=== PATIENT | male | born 1950 | race African-American/Black ===

== ENCOUNTER → 2016-04-14 | Outpatient (CLI) | payer MEDICARE | LOC: OD 10:22 | PROVIDERS: ATTEND Family Medicine | DX: M79.669 Pain in unspecified lower leg (principal); M25.461 Effusion, right knee; M77.51 Other enthesopathy of right foot and ankle ==

== ENCOUNTER 2016-04-15 14:50 | Emergency (ER) | payer MEDICARE ==
--- NOTE | 2016-04-15 15:17 | ER Document Report ---
ED Medical Screen (RME) - General Stated Complaint: KNEE AND FOOT PAIN Notes: right leg and foot swelling for 5 days, no trauma or injury denies h/o heart failure, edema ambulatory with a cane I have greeted and performed a rapid initial assessment of this patient. A comprehensive ED assessment and evaluation of the patient, analysis of test results and completion of the medical decision making process will be conducted by additional ED providers. TRAVEL OUTSIDE OF THE [place] IN LAST 30 DAYS: No - Related Data Allergies/Adverse Reactions: No Known Allergies Allergy (Verified 04/15/16 15:13) Past Medical History - Past Medical History Cardiac Medical History: Reports: Hx Coronary Artery Disease, Hx Hypertension Denies: Hx Heart Attack Pulmonary Medical History: Denies: Hx Asthma, Hx Bronchitis, Hx COPD, Hx Pneumonia Neurological Medical History: Reports: Hx Cerebrovascular Accident - 3 years ago - generally weak. Denies: Hx Seizures Endocrine Medical History: Reports: Hx Diabetes Mellitus Type 2 Malignancy Medical History: Reports Hx Colorectal Cancer, Reports Hx Prostate Cancer Musculoskeltal Medical History: Denies Hx Arthritis Past Surgical History: Reports: Hx Cardiac Surgery - cabg, Hx Coronary Artery Bypass Graft - Immunizations Hx Diphtheria, Pertussis, Tetanus Vaccination: No - unknown Physical Exam - Vital signs Vitals: Temp Pulse Resp BP Pulse Ox 98.4 F 70 16 161/90 H 100 04/15/16 15:12 04/15/16 15:12 04/15/16 15:12 04/15/16 15:12 04/15/16 15:12 Course - Vital Signs Vital signs: Temp Pulse Resp BP Pulse Ox 98.4 F 70 16 161/90 H 100 04/15/16 15:12 04/15/16 15:12 04/15/16 15:12 04/15/16 15:12 04/15/16 15:12
[2016-04-15 15:38] LABS: ABSOLUTE BASOPHILS # (AUTO) 0.1 10^3/uL (0.0-0.2); ABSOLUTE EOSINOPHILS # (AUTO) 0.1 10^3/uL (0.0-0.6); ABSOLUTE LYMPHOCYTES (AUTO) 0.9 10^3/uL (0.5-4.7); ABSOLUTE MONOCYTES (AUTO) 0.9 10^3/uL (0.1-1.4); ABSOLUTE NEUT (AUTO) 5.8 10^3/uL (1.7-8.2); BASOPHILS % (AUTO) 1.2 % (0-2); EOSINOPHILS % (AUTO) 1.1 % (0-6); HEMATOCRIT 30.1 % (37.9-51.0); HGB HCT DIFFERENCE -0.1; LYMPHOCYTES % (AUTO) 11.7 % (13-45); MEAN CORPUSCULAR HGB CONC 33.1 g/dL (32.0-36.0); MEAN CORPUSCULAR VOLUME 88 fl (80-97); MONOCYTES % (AUTO) 11.9 % (3-13); RED BLOOD COUNT 3.44 10^6/uL (4.35-5.55); RED CELL DISTRIBUTION WIDTH 14.7 % (11.5-14.0); SEGMENTED NEUTROPHILS % (AUTO) 74.1 % (42-78); WHITE BLOOD COUNT 7.9 10^3/uL (4.0-10.5)
[2016-04-15 15:53] LABS: ALANINE AMINOTRANSFERASE 30 U/L (21-72); ALBUMIN 4.1 g/dL (3.5-5.0); ALKALINE PHOSPHATASE 81 U/L (38-126); ANION GAP 13 (5-19); ASPARTATE AMINO TRANSFERASE 19 U/L (17-59); BILIRUBIN,TOTAL 0.8 mg/dL (0.2-1.3); BLOOD UREA NITROGEN 37 mg/dL (7-20); CALCIUM 9.8 mg/dL (8.4-10.2); CARBON DIOXIDE 22 mmol/L (22-30); CHLORIDE 101 mmol/L (98-107); CREATININE RESULT 1.86 mg/dL (0.52-1.25); GLUCOSE 180 mg/dL (75-110); SODIUM 136.3 mmol/L (137-145); TOTAL PROTEIN 7.8 g/dL (6.3-8.2)
[2016-04-15] MEDS ORDERED: LIDOCAINE 1%/EPINEPHRINE INJ 20 ML VIAL INJ ONE (17:23)
[2016-04-15 17:34] LABS: APPEARANCE,URINE SLIGHTLY-CLOUDY; BILIRUBIN,URINE NEGATIVE (NEGATIVE); GLUCOSE, URINE NEGATIVE (NEGATIVE); KETONES,URINE NEGATIVE (NEGATIVE); LEUKOCYTE ESTERASE,URINE NEGATIVE (NEGATIVE); NITRITE,URINE NEGATIVE (NEGATIVE); PROTEIN,URINE 30 mg/dL (NEGATIVE); URINE SPECIFIC GRAVITY 1.021; UROBILINOGEN,URINE NEGATIVE mg/dL (<2.0)
[2016-04-15] MEDS ORDERED: OXYCODONE-ACETAMINOPHEN 5-325 MG TABLET PO ONE (17:51)
[2016-04-15] MEDS ORDERED: PROMETHAZINE HCL 25 MG TABLET PO ONE (17:51)
[2016-04-15 18:26] LABS: OTHER CRYSTALS NONE OBSERVED
[2016-04-15 18:56] LABS: FLUID APPEARANCE SLIGHTLY HAZY; FLUID TYPE SYNOVIAL
[2016-04-15 18:57] LABS: FLUID RBC AVERAGE 7.5; FLUID RBC DILUENT USED NONE USED; FLUID RBC DILUTION FACTOR 1; FLUID RBC SIDE 1 7; FLUID RBC SIDE 2 8; TOTAL RBC SQUARES COUNTED FLD 225
--- NOTE | 2016-04-15 19:04 | ER Document Report ---
ED Extremity Problem, Lower - General Chief Complaint: Knee Pain Stated Complaint: KNEE AND FOOT PAIN Notes: Patient has swelling of his right knee and also his right foot since Tuesday. The swollen joints are very painful and it's difficult for him to walk, even using a cane. He recalls no injury. He's never had anyone tell him he has gout or any other arthritic conditions. Has not noted a fever. Family says he had a similar problem with the left knee and leg about a month ago. He's not had any vomiting or diarrhea. No cough or cold or chest congestion. TRAVEL OUTSIDE OF THE [place] IN LAST 30 DAYS: No - Related Data Allergies/Adverse Reactions: No Known Allergies Allergy (Verified 04/15/16 15:13) Past Medical History - Social History Smoking Status: Never Smoker Chew tobacco use (# tins/day): No Frequency of alcohol use: None Drug Abuse: None Family History: Reviewed & Not Pertinent Patient has suicidal ideation: No Patient has homicidal ideation: No - Past Medical History Cardiac Medical History: Reports: Hx Coronary Artery Disease - Stents, Hx Hypertension Denies: Hx Heart Attack Neurological Medical History: Reports: Hx Cerebrovascular Accident - 3 years ago - generally weak Endocrine Medical History: Reports: Hx Diabetes Mellitus Type 2 - Not on insulin. Malignancy Medical History: Reports Hx Colorectal Cancer, Reports Hx Prostate Cancer Musculoskeltal Medical History: Denies Hx Gout Past Surgical History: Reports: Hx Cardiac Surgery - cabg, Hx Coronary Artery Bypass Graft, Hx Genitourinary Surgery - Prostate surgery, Other - Colon cancer - Immunizations Hx Diphtheria, Pertussis, Tetanus Vaccination: No - unknown Hx Pneumococcal Vaccination: 03/07/14 Review of Systems - Review of Systems Notes: REVIEW OF SYSTEMS: CONSTITUTIONAL : Denies fever. EENT: Denies eye, ear, nose or mouth or throat pain or other symptoms. CARDIOVASCULAR: Denies chest pain. RESPIRATORY: Denies cough, chest congestion, or shortness of breath. GASTROINTESTINAL: Denies abdominal pain or nausea, vomiting, or diarrhea. GENITOURINARY: Denies difficulty or painful urinating, urinary frequency, blood in urine. MUSCULOSKELETAL: Denies back or neck pain. See history of present illness. SKIN: Denies rash or skin lesions. NEUROLOGICAL: Denies LOC or altered mental status. Denies headache. Denies sensory loss or motor deficits. PSYCHIATRIC: Denies anxiety or stress. Denies depression. ALL OTHER SYSTEMS REVIEWED AND NEGATIVE. Physical Exam - Vital signs Vitals: Temp Pulse Resp BP Pulse Ox 98.4 F 70 16 161/90 H 100 04/15/16 15:12 04/15/16 15:12 04/15/16 15:12 04/15/16 15:12 04/15/16 15:12 - Notes Notes: PHYSICAL EXAMINATION: GENERAL: Well-appearing, in no acute distress. Temp 98.4. HEAD: Atraumatic, normocephalic. NECK: Normal range of motion, supple. LUNGS: Breath sounds clear and equal bilaterally. HEART: Regular rate and rhythm without murmurs. ABDOMEN: Soft, nontender. No guarding or rebound. BACK: No tenderness throughout entire back. EXTREMITIES: Right knee is swollen with some small effusion palpable. It's warm to the touch. Right foot and ankle are also warm to the touch and painful to do so. Good nail bed filling at the toes of the right foot. Toes are warm to touch. NEUROLOGICAL: Normal speech, difficult, limping gait. Normal sensory, motor, and reflex exams. Awake, alert, and oriented x3. Cranial nerves normal. PSYCH: Normal mood, normal affect. SKIN: Warm, dry, no rashes. Course - Re-evaluation Re-evalutation: 04/15/16 21:27 - Vital Signs Vital signs: Temp Pulse Resp BP Pulse Ox 98.2 F 72 18 158/88 H 98 04/15/16 20:30 04/15/16 20:30 04/15/16 20:30 04/15/16 20:30 04/15/16 20:30 04/15/16 20:30 Synovial fluid from the right knee report from the lab looks like gout. He has mono urate crystals but no evidence of calcium pyruvate crystals of pseudogout. Preliminary Gram stain does not show any bacteria. Discussed with Dr. Vivar. He has just recently seen the patient has a reschedule visit Tuesday. He said to start the patient on colchicine 0.6 mg twice a day for 5 days, allopurinol 100 mg a day, and pain medicines and he will see the patient Tuesday. 04/15/16 21:27 - Laboratory Result Diagrams: 04/15/16 15:25 04/15/16 15:25 Laboratory results interpreted by me: 04/15/16 04/15/16 04/15/16 15:25 15:25 15:25 RBC 3.44 L Hgb 10.0 L Hct 30.1 L RDW 14.7 H Lymphocytes % 11.7 L ESR Sodium 136.3 L BUN 37 H Creatinine 1.86 H Est GFR ( Amer) 44 L Est GFR (Non-Af Amer) 37 L Glucose 180 H C-Reactive Protein NT-Pro-B Natriuret Pep 1600 H Urine Protein 04/15/16 04/15/16 04/15/16 15:25 15:25 17:10 RBC Hgb Hct RDW Lymphocytes % ESR 111 H Sodium BUN Creatinine Est GFR ( Amer) Est GFR (Non-Af Amer) Glucose C-Reactive Protein 86.0 H NT-Pro-B Natriuret Pep Urine Protein 30 H 04/15/16 20:30 Procedures - Joint Aspiration Right Knee Consent obtained: Yes Joint aspiration pre-procedure: Betadine prep applied, Other - Plus Isopril alcohol Anesthetic type: 1% Lidocaine w/epi mL's of anesthetic: 1 Needle size: 18 Amount/type of drainage: 10 Number of attempts: 1 Complications: No Discharge - Discharge Clinical Impression: Effusion, right knee Gout Qualifiers: Gout site: knee Gout etiology: due to renal impairment Laterality: right Chronicity: acute Qualified Code(s): 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 This fluid build up can occur from irritation of the synovial membrane lining the knee joint or from a more serious injury to the knee. Irritation of the membrane can occur from excessive, repetitive knee activitiy, like kneeling or squatting for extended periods or even just excessive walking, jogging, or skiing. Effusions also can occur with infections in the joint and with some arthritic conditions, especially gout. Fluid collections in these situations are usually yellow in color and either clear or cloudy in appearance. Significant injury to the knee can result in fluid collection which is partly or entirely blood and this condition is known as a hemarthrosis of the knee joint. If the fluid collection is not too large and/or painful, it can be managed conservatively with rest, ice packs, and anti-inflammatory and pain medications as needed. If the fluid collection is large and very painful, the knee joint can be drained (aspirated) by a relatively minor procedure of inserting a needle in the joint and removing some or all of the fluid present. If your knee was aspirated, you should rest it as much as possible for a few days, keep a pressure dressing around the knee and apply ice packs for at least 48 - 72 hours. If there are signs of developing infection such as heat and redness of the knee, fever, etc. you should return immediately for a recheck. Gout You have been diagnosed as having gout. Gout is a problem caused by an excess of uric acid, a natural chemical found in the body. The cause of this disease is unknown. Gout arthritis occurs when crystals of uric acid form in the joints. The big toe is the most common joint involved, but any joint can become affected. Persons with gout may also form uric acid kidney stones, resulting in flank pain and blood in the urine. Nodules of uric acid may form under the skin. The first step of treatment is to decrease the inflammation in the joint with antiinflammatory medication. Medication to lower the uric acid level in the blood may then be prescribed. This medication should be taken regularly, as any sudden change in dosage may provoke an attack of gout. Some foods, such as red meat, can provoke an attack in some gout sufferers. Call the doctor if new symptoms arise, or if you do not improve. Allopurinol Allopurinol (Zyloprim) is used to prevent gout and uric acid kidney stones. Allopurinol lowers uric acid in your body. It's most effective if taken daily. It's not useful to treat an attack of gout once it begins! There are usually no side effects from allopurinol. If you have any kidney disease, be sure your doctor knows about it before starting allopurinol ( you may need a lower dose). Stop the allopurinol and call your doctor if you develop severe itching, rash, unexplained blisters, unexplained bruises, jaundice (yellow skin), or swelling. Oral Narcotic Medication You have been given a prescription for pain control. This medication is a narcotic. It's best taken with food, as nausea can result if taken on an empty stomach. Don't operate machinery or drive within six hours of taking this medication. Do not combine this medicine with alcohol, or with any medication which can cause sedation (such as cold tablets or sleeping pills) unless you get permission from the physician. Narcotics tend to cause constipation. If possible, drink plenty of fluids and eat a diet high in fiber and fruits. You can take the Peter wrap and ice packed away from the knee tonight or tomorrow morning. FOLLOW-UP CARE: If you have been referred to a physician for follow-up care, call the physician s office for an appointment as you were instructed or within the next two days. If you experience worsening or a significant change in your symptoms, notify the physician immediately or return to the Emergency Department at any time for re-evaluation. Keep your appointment to see Dr. Vivar Tuesday. Prescriptions: Allopurinol [Zyloprim 100 mg Tablet] 100 mg PO DAILY #10 tablet Colchicine [Colchicine 0.6 mg Tablet] 0.6 mg PO BID #10 tablet Oxycodone HCl/Acetaminophen [Percocet 5-325 mg Tablet] 1 - 2 tab PO Q4H PRN #15 tablet PRN Reason: Referrals: ESVIN VIVAR MD [Primary Care Provider] - Follow up as needed
[2016-04-15] MEDS ORDERED: COLCHICINE 0.6 MG TABLET PO ONE (20:25)
[2016-04-15] MEDS ORDERED: ALLOPURINOL 100 MG TABLET PO ONE (20:27)
[2016-04-15] MEDS ORDERED: HYDROCODONE/ACETAMINOPHEN 5-325 MG 6 TAB/DSPK PO PRN (20:28)
[2016-04-15 20:50] VITALS: BP 158/88
== END 2016-04-15 20:50 | disposition home or self-care (01) ==
LOC: ER 14:50
PROC: 0S9C3ZZ Drainage of Right Knee Joint, Percutaneous Approach (ICD-10-PCS; principal; 2016-04-15)
DX: M25.641 Stiffness of right hand, not elsewhere classified (principal); M10.361 Gout due to renal impairment, right knee; M79.671 Pain in right foot; I10 Essential (primary) hypertension; E11.9 Type 2 diabetes mellitus without complications; I69.959 Hemiplegia and hemiparesis following unspecified cerebrovascular disease affecting unspecified side; Z85.46 Personal history of malignant neoplasm of prostate; Z85.038 Personal history of other malignant neoplasm of large intestine; Z95.1 Presence of aortocoronary bypass graft
CPT/HCPCS: 99284; 36415; 87205; 87070; 84550; 85025; 85652; 89050; 89060; 87075; 86140; 86430; 80053; 81001; 83880; 93971; 20610; A9270 ×5

== ENCOUNTER → 2016-08-20 | Outpatient (CLI) | payer MEDICARE ==
[2016-08-20 13:07] LABS: APPEARANCE,URINE CLEAR; BILIRUBIN,URINE NEGATIVE (NEGATIVE); GLUCOSE, URINE NEGATIVE (NEGATIVE); KETONES,URINE NEGATIVE (NEGATIVE); LEUKOCYTE ESTERASE,URINE NEGATIVE (NEGATIVE); NITRITE,URINE NEGATIVE (NEGATIVE); PROTEIN,URINE NEGATIVE (NEGATIVE); URINE SPECIFIC GRAVITY 1.015; UROBILINOGEN,URINE NEGATIVE mg/dL (<2.0)
[2016-08-20 13:11] LABS: HEMATOCRIT 34.5 % (37.9-51.0); HEMOGLOBIN 11.4 g/dL (13.5-17.0); HGB HCT DIFFERENCE -0.3; MEAN CORPUSCULAR HEMOGLOBIN 29.3 pg (27.0-33.4); MEAN CORPUSCULAR HGB CONC 33.2 g/dL (32.0-36.0); MEAN CORPUSCULAR VOLUME 88 fl (80-97); RED CELL DISTRIBUTION WIDTH 14.8 % (11.5-14.0); WHITE BLOOD COUNT 4.4 10^3/uL (4.0-10.5)
[2016-08-20 13:27] LABS: URINE CREATININE 132.3 mg/dL (22-328); URINE PROTEIN 18.2 mg/dL (<12)
[2016-08-20 13:36] LABS: ANION GAP 11 (5-19); BLOOD UREA NITROGEN 36 mg/dL (7-20); CALCIUM 9.8 mg/dL (8.4-10.2); CARBON DIOXIDE 24 mmol/L (22-30); CHLORIDE 107 mmol/L (98-107); CREATININE RESULT 1.64 mg/dL (0.52-1.25); GLUCOSE 133 mg/dL (75-110); POTASSIUM 4.6 mmol/L (3.6-5.0); SODIUM 141.8 mmol/L (137-145)
== END ==
LOC: OD 12:00
PROVIDERS: ATTEND Internal Medicine Nephrology
DX: E11.22 Type 2 diabetes mellitus with diabetic chronic kidney disease (principal); I12.9 Hypertensive chronic kidney disease with stage 1 through stage 4 chronic kidney disease, or unspecified chronic kidney disease; N18.3 Chronic kidney disease, stage 3 (moderate); R80.9 Proteinuria, unspecified
CPT/HCPCS: 36415; 80048; 81001; 82570; 84156; 85027

== ENCOUNTER → 2017-05-07 | Outpatient (CLI) | payer MEDICAID, MEDICARE ==
--- NOTE | 2017-05-07 10:53 | RADIOLOGY REPORT (SQ) ---
EXAM DESCRIPTION: CT ABD/PELVIS ORAL ONLY COMPLETED DATE/TIME: 05/07/2017 10:10 am REASON FOR STUDY: MALIGNANT NEOPLASM OF PROSTATE C61 MALIGNANT NEOPLASM OF PROSTATE COMPARISON: 12/05/2015 TECHNIQUE: CT scan of the abdomen and pelvis performed with oral contrast and no intravenous contras t. Images reviewed with lung, soft tissue, and bone windows. Reconstructed coronal and sagittal MPR i mages reviewed. All images stored on PACS. All CT scanners at this facility use dose modulation, iterative reconstruction, and/or weight based d osing when appropriate to reduce radiation dose to as low as reasonably achievable (ALARA). [facility]: Dose Right [facility]: CareDose [facility]: Dose Right [facility]: Teradose 4D [facility]: [employer] RADIATION DOSE: CT Rad equipment meets quality standard of care and radiation dose reduction techniq ues were employed. CTDIvol: 13.3 mGy. DLP: 980 mGy-cm. mGy. LIMITATIONS: None. FINDINGS: LOWER CHEST: See separate report of the CT of the chest. NON-CONTRASTED LIVER, SPLEEN, ADRENALS: Evaluation limited by lack of IV contrast. No identified sign ificant masses. PANCREAS: No masses. No peripancreatic inflammatory changes. GALLBLADDER: No identified stones by CT criteria. No inflammatory changes to suggest cholecystitis. RIGHT KIDNEY AND URETER: No suspicious masses. Assessment limited by lack of IV contrast. No signif icant calcifications. No hydronephrosis or hydroureter. LEFT KIDNEY AND URETER: No suspicious masses. Assessment limited by lack of IV contrast. No signifi cant calcifications. No hydronephrosis or hydroureter. AORTA AND RETROPERITONEUM: No aneurysm. No retroperitoneal masses or adenopathy. BOWEL AND PERITONEAL CAVITY: Soft tissue density adjacent to anastomosis status post right hemicolect georgina is unchanged. No ascites or adenopathy. APPENDIX: Surgically absent. PELVIS, BLADDER, AND ABDOMINAL WALL: No abnormal pelvic masses. No abdominal wall hernias. Bladder un remarkable. BONES: Chronic compression fracture L1. OTHER: No other significant finding. IMPRESSION: Stable appearance of the abdomen and pelvis. No evidence of metastatic disease. TECHNICAL DOCUMENTATION: JOB ID: [id number] Quality ID # 436: Final reports with documentation of one or more dose reduction techniques (e.g., Au tomated exposure control, adjustment of the mA and/or kV according to patient size, use of iterative reconstruction technique) 2010 [employer]- All Rights Reserved Reading location - IP/workstation name: [email or web address]
== END ==
LOC: RAD 09:47
PROVIDERS: ATTEND Internal Medicine
DX: C61 Malignant neoplasm of prostate (principal)
CPT/HCPCS: 74176

== ENCOUNTER → 2017-05-09 | Outpatient (CLI) | payer MEDICAID, MEDICARE ==
--- NOTE | 2017-05-07 10:50 | RADIOLOGY REPORT (SQ) ---
EXAM DESCRIPTION: CT CHEST WITHOUT COMPLETED DATE/TIME: 05/07/2017 10:10 am REASON FOR STUDY: MALIGNANT NEOPLASM OF PROSTATE C61 MALIGNANT NEOPLASM OF PROSTATE COMPARISON: 12/05/2015 TECHNIQUE: CT scan performed of the chest without intravenous contrast. Images reviewed with lung, soft tissue and bone windows. Reconstructed coronal and sagittal MPR images reviewed. All images st ored on PACS. All CT scanners at this facility use dose modulation, iterative reconstruction, and/or weight based d osing when appropriate to reduce radiation dose to as low as reasonably achievable (ALARA). [facility]: Dose Right [facility]: CareDose [facility]: Dose Right [facility]: Teradose 4D [facility]: [employer] RADIATION DOSE: mGy. LIMITATIONS: No technical limitations. FINDINGS: LUNGS AND PLEURA: More decrease in size of pleural-based nodule right upper lobe now less than 3 mm. No new nodules. No effusions. HILAR AND MEDIASTINAL STRUCTURES: No identified masses or abnormal nodes. No obvious aneurysm. HEART AND VASCULAR STRUCTURES: No aneurysm. No pericardial effusion. UPPER ABDOMEN: See separate report of the CT of the abdomen. THYROID AND OTHER SOFT TISSUES: No masses. No adenopathy. BONES: No acute findings. HARDWARE: Left-sided port position unchanged. OTHER: No other significant findings. IMPRESSION: Marked decrease in size of right upper lobe nodule. No new nodules. TECHNICAL DOCUMENTATION: JOB ID: [id number] Quality ID # 436: Final reports with documentation of one or more dose reduction techniques (e.g., Au tomated exposure control, adjustment of the mA and/or kV according to patient size, use of iterative reconstruction technique) 2010 [employer]- All Rights Reserved Reading location - IP/workstation name: [email or web address]
--- NOTE | 2017-05-09 14:37 | RADIOLOGY REPORT (SQ) ---
EXAM DESCRIPTION: NM WHOLE BODY BONE SCAN COMPLETED DATE/TIME: 05/09/2017 1:54 pm REASON FOR STUDY: MAL KARUNA OF PROSTATE C61 MALIGNANT NEOPLASM OF PROSTATE COMPARISON: November 2015 RADIONUCLIDE AND DOSE: 21.0 millicuries Tc99m MDP. The route of agent administration: Intravenous. ADDITIONAL DRUGS AND DOSES: None. TECHNIQUE: Routine delayed images at 3 hours post radionuclide injection acquired of the bony skelet on including anterior and posterior whole-body projections and additional focused images as needed. LIMITATIONS: None. FINDINGS: BONES: No skeletal areas of increase tracer activity to suggest metastatic disease is seen . There is focal increased activity in the right cervical region posteriorly presumably degenerative in nature. There is some minimal increased activity at the level of the knees and ankles bilaterall y most consistent with degenerative changes KIDNEYS: Symmetric excretion without obstruction. OTHER: No other significant finding. IMPRESSION: No evidence for skeletal metastatic disease. Other findings as noted above COMMENT: Quality measure 147: TECHNICAL DOCUMENTATION: JOB ID: [id number] [email or web address]- All Rights Reserved Reading location - IP/workstation name: [email or web address]
== END ==
LOC: RAD 10:33
PROVIDERS: ATTEND Internal Medicine
DX: C61 Malignant neoplasm of prostate (principal); R91.1 Solitary pulmonary nodule
CPT/HCPCS: 78306; 71250; A9561; Q9969

== ENCOUNTER 2017-09-20 18:55 | Emergency (ER) | payer MEDICARE, MEDICAID ==
--- NOTE | 2017-09-20 19:26 | ER Document Report ---
ED General - General Chief Complaint: Low Blood Sugar Stated Complaint: BLOOD SUGAR ISSUES Time Seen by Provider: 09/20/17 19:10 Notes: Patient is a 67-year-old male who comes emergency department by EMS for chief complaint of altered mental status. Family states that patient came into the house, was diaphoretic and confused, they called EMS, EMS found initial blood glucose of 34, given oral glucose and 150 cc of D10. Patient had eaten at noon , had not had dinner yet. He is on glipizide ER 5 mg and Tradjenta. He has a history of CVA, DC, CABG, and prostate cancer currently on chemotherapy injections and in remission per family. Patient has baseline confusion and some aphasia per family. TRAVEL OUTSIDE OF THE [place] IN LAST 30 DAYS: No - Related Data Allergies/Adverse Reactions: No Known Allergies Allergy (Verified 09/20/17 19:11) Past Medical History - General Information source: Patient, Relative - Son - Social History Smoking Status: Never Smoker Drug Abuse: None Lives with: Family Family History: Reviewed & Not Pertinent - Past Medical History Cardiac Medical History: Reports: Hx Coronary Artery Disease - Stents, Hx Hypertension Denies: Hx Heart Attack Pulmonary Medical History: Denies: Hx Asthma, Hx Bronchitis, Hx COPD, Hx Pneumonia Neurological Medical History: Reports: Hx Cerebrovascular Accident - 3 years ago - generally weak. Denies: Hx Seizures Endocrine Medical History: Reports: Hx Diabetes Mellitus Type 2 - Not on insulin. Renal/ Medical History: Denies: Hx Peritoneal Dialysis Malignancy Medical History: Reports Hx Colorectal Cancer, Reports Hx Prostate Cancer Musculoskeletal Medical History: Denies Hx Arthritis, Denies Hx Gout Past Surgical History: Reports: Hx Cardiac Surgery - cabg, Hx Coronary Artery Bypass Graft, Hx Genitourinary Surgery - Prostate surgery, Other - Colon cancer - Immunizations Hx Diphtheria, Pertussis, Tetanus Vaccination: No - unknown Hx Pneumococcal Vaccination: 03/07/14 Review of Systems - Review of Systems Constitutional: See HPI EENT: No symptoms reported Cardiovascular: No symptoms reported Respiratory: No symptoms reported Gastrointestinal: No symptoms reported Genitourinary: No symptoms reported Male Genitourinary: No symptoms reported Musculoskeletal: No symptoms reported Skin: No symptoms reported Hematologic/Lymphatic: No symptoms reported Neurological/Psychological: See HPI Physical Exam - Notes Notes: GENERAL: Alert, interacts well. No acute distress. HEAD: Normocephalic, atraumatic. EYES: Pupils equal, round, and reactive to light. Extraocular movements intact. ENT: Oral mucosa moist, tongue midline. [Nares patent, no nasal septal hematoma , TM's intact.] NECK: Full range of motion. Supple. Trachea midline. LUNGS: Clear to auscultation bilaterally, no wheezes, rales, or rhonchi. No respiratory distress. HEART: Regular rate and rhythm. No murmur ABDOMEN: Soft, non-tender. Non-distended. Bowel sounds present in all 4 quadrants. EXTREMITIES: Moves all 4 extremities spontaneously. No edema, normal radial and dorsalis pedis pulses bilaterally. No cyanosis. BACK: no cervical, thoracic, lumbar midline tenderness. No saddle anesthesia, normal distal neurovascular exam. NEUROLOGICAL: Patient alert, cooperative. Cranial nerves intact except patient has difficult to understand speech and occasional confusion with answering questions although he follows all commands. PSYCH: Normal affect, normal mood. SKIN: Warm, dry, normal turgor. No rashes or lesions noted. Course - Re-evaluation Re-evalutation: Patient takes glipizide, has not taken since this morning, did not eat dinner before hypoglycemia. Will need continued monitoring. He was initially fed peanut butter and crackers. He is at his normal baseline per son. Vital signs unremarkable. Creatinine 1.97 which is slightly above patient's baseline, potassium is slightly low, magnesium checked and normal. Given 500 cc bolus, potassium, blood sugar rechecked for couple hours and maintained without having any drop despite being given IV fluids. I did discuss the patient with patient's provider Dr. Casarez including treatments. Plan is to stop glipizide, have close follow-up to repeat potassium and creatinine levels, discussed recommendations, follow-up, and return precautions in detail with patient and son, they state satisfaction and agreement with plan. - Laboratory Result Diagrams: 09/20/17 19:05 09/20/17 19:05 Laboratory results interpreted by me: 09/20/17 09/20/17 09/20/17 19:05 19:05 20:00 RBC 3.54 L Hgb 10.6 L Hct 31.2 L RDW 14.5 H Potassium 3.1 L Carbon Dioxide 21 L BUN 29 H Creatinine 1.97 H Est GFR ( Amer) 41 L Est GFR (Non-Af Amer) 34 L POC Glucose Urine Protein 30 H Urine Blood SMALL H 09/20/17 09/20/17 20:37 21:32 RBC Hgb Hct RDW Potassium Carbon Dioxide BUN Creatinine Est GFR ( Amer) Est GFR (Non-Af Amer) POC Glucose 122 H 124 H Urine Protein Urine Blood Discharge - Discharge Clinical Impression: Hypoglycemia, Hypokalemia Condition: Stable Disposition: HOME, SELF-CARE Additional Instructions: Your symptoms tonight were from low blood sugar. Stop the glipizide medication , continue other medications. Your potassium was low, this was supplemented, your kidney functioning also needs to be rechecked. Call your provider in follow-up within the next several days to have this performed. Return if you worsen including passing out, confusion, fever, or any other concerning or worsening symptoms. Referrals: RENARD GARRISON MD [ACTIVE STAFF] - Follow up as needed
[2017-09-20 19:32] LABS: ABSOLUTE EOSINOPHILS # (AUTO) 0.1 10^3/uL (0.0-0.6); ABSOLUTE LYMPHOCYTES (AUTO) 0.8 10^3/uL (0.5-4.7); ABSOLUTE MONOCYTES (AUTO) 0.6 10^3/uL (0.1-1.4); ABSOLUTE NEUT (AUTO) 4.4 10^3/uL (1.7-8.2); BASOPHILS % (AUTO) 0.4 % (0-2); HEMATOCRIT 31.2 % (37.9-51.0); HEMOGLOBIN 10.6 g/dL (13.5-17.0); LYMPHOCYTES % (AUTO) 13.1 % (13-45); MEAN CORPUSCULAR HEMOGLOBIN 29.9 pg (27.0-33.4); MEAN CORPUSCULAR HGB CONC 33.9 g/dL (32.0-36.0); MEAN CORPUSCULAR VOLUME 88 fl (80-97); MONOCYTES % (AUTO) 10.7 % (3-13); PLATELET COUNT 237 10^3/uL (150-450); RED BLOOD COUNT 3.54 10^6/uL (4.35-5.55); RED CELL DISTRIBUTION WIDTH 14.5 % (11.5-14.0); SEGMENTED NEUTROPHILS % (AUTO) 74.8 % (42-78); TOTAL CELLS COUNTED % (AUTO) 100 %; WHITE BLOOD COUNT 5.8 10^3/uL (4.0-10.5)
[2017-09-20 19:39] LABS: ALANINE AMINOTRANSFERASE 23 U/L (21-72); ALBUMIN 3.7 g/dL (3.5-5.0); ALKALINE PHOSPHATASE 83 U/L (38-126); ANION GAP 14 (5-19); ASPARTATE AMINO TRANSFERASE 19 U/L (17-59); BILIRUBIN,DIRECT 0.2 mg/dL (0.0-0.4); BILIRUBIN,TOTAL 0.2 mg/dL (0.2-1.3); BLOOD UREA NITROGEN 29 mg/dL (7-20); CALCIUM 9.5 mg/dL (8.4-10.2); CARBON DIOXIDE 21 mmol/L (22-30); CHLORIDE 105 mmol/L (98-107); GLUCOSE 89 mg/dL (75-110); POTASSIUM 3.1 mmol/L (3.6-5.0); SODIUM 140.3 mmol/L (137-145); TOTAL PROTEIN 7.1 g/dL (6.3-8.2)
[2017-09-20 20:15] LABS: APPEARANCE,URINE CLEAR; BILIRUBIN,URINE NEGATIVE (NEGATIVE); COLOR,URINE YELLOW; GLUCOSE, URINE NEGATIVE (NEGATIVE); KETONES,URINE NEGATIVE (NEGATIVE); LEUKOCYTE ESTERASE,URINE NEGATIVE (NEGATIVE); NITRITE,URINE NEGATIVE (NEGATIVE); PROTEIN,URINE 30 mg/dL (NEGATIVE); URINE SPECIFIC GRAVITY 1.016; UROBILINOGEN,URINE NEGATIVE mg/dL (<2.0)
[2017-09-20] MEDS ORDERED: NORMAL SALINE 1000 ML 500 ML IV ONE (20:18)
[2017-09-20] MEDS ORDERED: POTASSIUM CHLORIDE 10 MEQ CAPSULE.ER PO ONE (20:18)
--- NOTE | 2017-09-20 22:14 | EKG REPORT ---
SEVERITY:- ABNORMAL ECG - SINUS RHYTHM ATRIAL PREMATURE COMPLEX PROBABLE LEFT ATRIAL ABNORMALITY LVH WITH SECONDARY REPOLARIZATION ABNORMALITY ANTERIOR Q WAVES, POSSIBLY DUE TO LVH PROLONGED QT INTERVAL : Confirmed by: Joceline Malloy 20-Sep-2017 22:14:26
== END 2017-09-20 22:58 | disposition home or self-care (01) ==
LOC: ER 18:55
DX: E11.649 Type 2 diabetes mellitus with hypoglycemia without coma (principal); E87.6 Hypokalemia; Z86.73 Personal history of transient ischemic attack (TIA), and cerebral infarction without residual deficits; Z95.1 Presence of aortocoronary bypass graft; I25.2 Old myocardial infarction
CPT/HCPCS: 93005; 99284; 96360; 36415; 82962; 83735; 85025; 80053; 81001; 84484; 93010; J7030; A9270

== ENCOUNTER → 2017-09-30 | Outpatient (CLI) | payer MEDICAID, MEDICARE ==
--- NOTE | 2017-09-30 12:33 | RADIOLOGY REPORT (SQ) ---
EXAM DESCRIPTION: MRI HEAD WITHOUT COMPLETED DATE/TIME: 09/30/2017 12:09 pm REASON FOR STUDY: DIZZINESS AND GIDDINESS R42 DIZZINESS AND GIDDINESS COMPARISON: 2012 TECHNIQUE: Multiplanar imaging includes non-contrasted T1, T2, FLAIR, and diffusion with ADC map seq uences. Images stored on PACS. LIMITATIONS: None. FINDINGS: ANATOMY: No anomalies. Normal vascular flow voids. Pituitary fossa normal. CSF SPACES: Atrophy induced prominence of ventricles and CSF spaces. CEREBRUM: High signal intensity lesions scattered throughout the white matter on FLAIR imaging with d istribution suggesting micro-vascular ischemic changes. No evidence of hemorrhage, mass, or extraaxi al fluid collection. 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 POSTERIOR FOSSA: Mild white matter signal alteration in the seth. . No hemorrhage. No edema, masses or mass effect. Internal auditory canals, cerebello-pontine angles, mastoids normal. DIFFUSION IMAGING: Negative for acute or sub-acute infarction. ORBITS: No masses. Globes normal. PARANASAL SINUSES: No fluid levels. Mucosa normal. OTHER: No other significant finding. IMPRESSION: Interval large infarcts in the left cerebellar hemisphere and occipital cortex with exte nsive encephalomalacia. Marked microvascular ischemic changes supratentorial with mild changes infratentorial. No acute intracranial process. EVIDENCE OF ACUTE STROKE: NO. TECHNICAL DOCUMENTATION: JOB ID: [id number] [employer]- All Rights Reserved Reading location - IP/workstation name: [email or web address]
== END ==
LOC: RAD 11:25
PROVIDERS: ATTEND Physician Assistant
DX: R42 Dizziness and giddiness (principal)
CPT/HCPCS: 70551

== ENCOUNTER 2017-11-16 05:45 | Inpatient (IN) | payer MEDICARE, MEDICAID ==
[2017-11-16] MEDS ORDERED: FENTANYL CITRATE INJ/PF 100 MCG/2 ML AMPUL IV ONE ×3 (05:51→13:23)
--- NOTE | 2017-11-16 05:53 | ER Document Report ---
Doctor's Note Notes: 11/16/17 05:52 I performed a quick triage evaluation of the patient. Patient is a 67-year-old male presents with complaint of left thigh pain. This occurred after he fell going down the steps in his thigh twisted. He does fall sometimes causes some left-sided weakness from residual stroke. Also has previous history of [place]. He complains of pain only in the left eye. Denies pain anywhere else. No numbness or weakness into left foot. He currently has his leg in position of comfort with his left hip externally rotated and the knee bent. He has good distal pulses and good capillary refill in the foot and is able to wiggle his toes and move his foot without difficulty. Have ordered some fentanyl for pain. I have ordered x-rays as well as some baseline lab work as I strongly suspect it is broken therefore he will need a preoperative workup for fixation of his femur. Icing his head. No neck pain. No back pain. No pain or swelling or bruising on the remainder of his exam. Dictation of this chart was performed using voice recognition software; therefore, there may be some unintended grammatical errors.
[2017-11-16 06:12] LABS: ABSOLUTE EOSINOPHILS # (AUTO) 0.1 10^3/uL (0.0-0.6); ABSOLUTE LYMPHOCYTES (AUTO) 1.4 10^3/uL (0.5-4.7); ABSOLUTE MONOCYTES (AUTO) 0.5 10^3/uL (0.1-1.4); ABSOLUTE NEUT (AUTO) 3.1 10^3/uL (1.7-8.2); BASOPHILS % (AUTO) 0.6 % (0-2); EOSINOPHILS % (AUTO) 1.8 % (0-6); HEMOGLOBIN 10.4 g/dL (13.5-17.0); LYMPHOCYTES % (AUTO) 27.6 % (13-45); MEAN CORPUSCULAR HEMOGLOBIN 29.5 pg (27.0-33.4); MEAN CORPUSCULAR HGB CONC 33.7 g/dL (32.0-36.0); MEAN CORPUSCULAR VOLUME 88 fl (80-97); MONOCYTES % (AUTO) 9.2 % (3-13); PLATELET COUNT 237 10^3/uL (150-450); RED BLOOD COUNT 3.54 10^6/uL (4.35-5.55); RED CELL DISTRIBUTION WIDTH 14.7 % (11.5-14.0); SEGMENTED NEUTROPHILS % (AUTO) 60.8 % (42-78); TOTAL CELLS COUNTED % (AUTO) 100 %; WHITE BLOOD COUNT 5.1 10^3/uL (4.0-10.5)
[2017-11-16 06:20] LABS: INTERNATIONAL RATION (INR) 1.02; PROTHROMBIN TIME 13.9 SEC (11.4-15.4)
[2017-11-16 06:21] LABS: PARTIAL THROMBOPLASTIN TIME 28.8 SEC (23.5-35.8)
[2017-11-16 06:26] LABS: ALANINE AMINOTRANSFERASE 24 U/L (21-72); ALBUMIN 3.6 g/dL (3.5-5.0); ALKALINE PHOSPHATASE 79 U/L (38-126); ANION GAP 10 (5-19); ASPARTATE AMINO TRANSFERASE 15 U/L (17-59); BILIRUBIN,DIRECT 0.2 mg/dL (0.0-0.4); BILIRUBIN,TOTAL 0.5 mg/dL (0.2-1.3); BLOOD UREA NITROGEN 24 mg/dL (7-20); CALCIUM 9.8 mg/dL (8.4-10.2); CARBON DIOXIDE 22 mmol/L (22-30); CHLORIDE 107 mmol/L (98-107); GLUCOSE 118 mg/dL (75-110); SODIUM 139.3 mmol/L (137-145); TOTAL PROTEIN 6.9 g/dL (6.3-8.2)
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
[2017-11-16] MEDS ORDERED: NORMAL SALINE 250 ML IV PRN (07:08)
--- NOTE | 2017-11-16 07:20 | RADIOLOGY REPORT (SQ) ---
EXAM DESCRIPTION: XR CHEST 1 VIEW COMPLETED DATE/TME: 11/16/2017 05:50 CLINICAL HISTORY: 67 years Male, preop COMPARISON: None. NUMBER OF VIEWS/TECHNIQUE: 1/AP FINDINGS: Moderate lung volume, small streaky opacity of the right lung base, normal cardiac silhouette, and sternotomy. Left central line tip at the upper right atrium. IMPRESSION: Small right basilar pneumonia/atelectasis. Recommend CR/CT surveillance including at 7-12 weeks following initiation of any clinically warranted therapy.
--- NOTE | 2017-11-16 07:22 | RADIOLOGY REPORT (SQ) ---
EXAM DESCRIPTION: XR FEMUR 2 VIEWS COMPLETED DATE/TME: 11/16/2017 05:50 CLINICAL HISTORY: 67 years, Male, trauma COMPARISON: None. NUMBER OF VIEWS: Two view LIMITATIONS: None. FINDINGS: Complete comminuted spiral fracture of the left femoral mid diaphysis with 10 cm impaction and rotation with moderate angulation. Atherosclerosis. IMPRESSION: Fracture of the left femoral shaft.
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
--- NOTE | 2017-11-16 08:25 | EKG REPORT ---
SEVERITY:- ABNORMAL ECG - SINUS RHYTHM LVH WITH SECONDARY REPOLARIZATION ABNORMALITY ANTERIOR INFARCT, AGE INDETERMINATE : Confirmed by: Joceline Malloy 16-Nov-2017 08:24:50
[2017-11-16 12:19] LABS: HEMATOCRIT 35.8 % (37.9-51.0); HEMOGLOBIN 11.8 g/dL (13.5-17.0); MEAN CORPUSCULAR HEMOGLOBIN 28.5 pg (27.0-33.4); MEAN CORPUSCULAR HGB CONC 32.9 g/dL (32.0-36.0); MEAN CORPUSCULAR VOLUME 87 fl (80-97); PLATELET COUNT 207 10^3/uL (150-450); RED BLOOD COUNT 4.13 10^6/uL (4.35-5.55); RED CELL DISTRIBUTION WIDTH 14.6 % (11.5-14.0)
--- NOTE | 2017-11-16 12:45 | XCELERA REPORT ---
[address] [address] Transthoracic Echocardiogram Report Name: SHABNAM BEE Age: 67 yrs Gender: Male : 1950 Patient Status: Inpatient Patient Location: [place] [address]^A Study Date: 11/16/2017 11:17 AM Height: 66 in Weight: 187 lb BSA: 1.9 m2 Procedure: A two-dimensional transthoracic echocardiogram with color flow Doppler was performed. Study Quality: Technically suboptimal. The study was technically difficult with many images being suboptimal in quality. Reason For Study: pre-op History: CAd / History iof CABG / Preoperative Cardiac Risk Assessment. Ordering Physician: ASAEL YANES Performed By: JOYCE Interpretation Summary The left ventricle is normal in size. There is mild concentric left ventricular hypertrophy. Left ventricular systolic function is normal. LV EF is Probaly > than 55%.% LV diastolic function not assessed. Septal motion is consistent with conduction abnormality Probably no regional wall motion abnormality. The right ventricle is not well visualized secondary to technical limitations There is no thrombus. Right atrium not well visualized secondary to technical limitations The left atrium is moderately dilated. There is no evidence of mitral valve prolapse. There is no vegetation seen on the mitral valve. Not a good imnterogation, probaly no MR. There is no aortic valvular vegetation. There is no aortic valve stenosis There is no LVOT obstruction. No aortic regurgitation is present. There is no tricuspid stenosis. Probably trace TR.Unable to calculate RVSP due to insufficient TR jet..Poor TV interogation. The pulmonic valve is not well visualized. There is no pericardial effusion. MMode/2D Measurements & Calculations RVDd: 3.9 cm LVIDd: 3.9 cm FS: 32.2 % Ao root diam: 3.3 cm IVSd: 1.2 cm LVIDs: 2.7 cm EDV(Teich): 67.8 ml Ao root area: 8.6 cm2 LVPWd: 1.2 cm ESV(Teich): 26.5 ml LA dimension: 5.1 cm EF(Teich): 61.0 % LVOT diam: 2.3 cm LVOT area: 4.1 cm2 Doppler Measurements & Calculations MV E max hanny: MV P1/2t max hanny: Ao V2 max: LV V1 max P.6 cm/sec 67.8 cm/sec 87.7 cm/sec 1.7 mmHg MV A max hanny: MV P1/2t: 74.0 msec Ao max P.1 mmHg LV V1 max: 67.1 cm/sec MVA(P1/2t): 3.0 cm2 RINA(V,D): 3.0 cm2 65.2 cm/sec MV E/A: 1.1 MV dec slope: 268.2 cm/sec2 MV dec time: 0.21 sec PA V2 max: PI end-d hanny: MV P1/2t-pr_phl: 97.7 cm/sec 48.6 cm/sec 74.0 msec PA max P.9 mmHg Left Ventricle The left ventricle is normal in size. There is mild concentric left ventricular hypertrophy. Left ventricular systolic function is normal. LV EF is Probaly > than 55%.%. LV diastolic function not assessed. Septal motion is consistent with conduction abnormality. Probably no regional wall motion abnormality. There is no thrombus. Right Ventricle The right ventricle is not well visualized secondary to technical limitations. Atria Right atrium not well visualized secondary to technical limitations. The left atrium is moderately dilated. Mitral Valve There is no evidence of mitral valve prolapse. There is no vegetation seen on the mitral valve. There is no mitral valve stenosis. Not a good imnterogation, probaly no MR. Aortic Valve There is no aortic valvular vegetation. There is no aortic valve stenosis. There is no LVOT obstruction. No aortic regurgitation is present. Tricuspid Valve There is no tricuspid stenosis. Probably trace TR.Unable to calculate RVSP due to insufficient TR jet..Poor TV interogation. Pulmonic Valve The pulmonic valve is not well visualized. Great Vessels The aortic root is normal size. Effusions There is no pericardial effusion. : ASAEL YANES > Isabela Bland
[2017-11-16] MEDS ORDERED: HYDRALAZINE HCL INJ/PF 20 MG/1 ML SDV IV ONE (13:23)
[2017-11-16] MEDS ORDERED: NORMAL SALINE 1000 ML 1,000 ML IV PRN (13:47)
[2017-11-16] MEDS ORDERED: GLUCAGON,HUMAN RECOMB 1 MG INJ IM PRN (13:53)
[2017-11-16] MEDS ORDERED: DEXTROSE 50%-WATER 25 GM/50 ML DISP.SYRIN IV PRN ×2 (13:53)
[2017-11-16] MEDS ORDERED: DEXTROSE 40% GEL 15 GM TUBE PO PRN ×2 (13:53)
[2017-11-16 14:47] LABS: APPEARANCE,URINE CLEAR; BILIRUBIN,URINE NEGATIVE (NEGATIVE); COLOR,URINE YELLOW; GLUCOSE, URINE NEGATIVE (NEGATIVE); KETONES,URINE TRACE mg/dL (NEGATIVE); LEUKOCYTE ESTERASE,URINE NEGATIVE (NEGATIVE); NITRITE,URINE NEGATIVE (NEGATIVE); PROTEIN,URINE 30 mg/dL (NEGATIVE); URINE SPECIFIC GRAVITY 1.013; UROBILINOGEN,URINE NEGATIVE mg/dL (<2.0)
[2017-11-16] MEDS ORDERED: ONDANSETRON HCL INJ/PF 4 MG/2 ML SDV ONE (18:27)
[2017-11-16] MEDS ORDERED: MIDAZOLAM 2 MG/2 ML INJ ONE (18:27)
[2017-11-16] MEDS ORDERED: KETAMINE HCL INJ 500 MG/10 ML VIAL ONE (18:27)
[2017-11-16] MEDS ORDERED: PROPOFOL INJ 200 MG/20 ML VIAL IV ONE (18:28)
[2017-11-16] MEDS ORDERED: BUPIVACAINE HCL/DEX-WATER/PF 15 MG/2 ML AMPULE ONE (18:29)
[2017-11-16] MEDS: DOCUSATE SODIUM 100 MG CAPSULE PO SCH (18:31)
[2017-11-16] MEDS ORDERED: CEFAZOLIN INJ 1 GM VIAL ONE (18:53)
[2017-11-16] MEDS ORDERED: DIPHENHYDRAMINE HCL 50 MG/ML VIAL IV PRN (19:42)
[2017-11-16] MEDS ORDERED: MEPERIDINE HCL/PF INJ 25 MG/1 ML DISP.SYRIN IV PRN (19:42)
[2017-11-16] MEDS ORDERED: FENTANYL CITRATE INJ/PF 100 MCG/2 ML AMPUL IV PRN ×2 (19:42)
--- NOTE | 2017-11-16 20:40 | RADIOLOGY REPORT (SQ) ---
EXAM DESCRIPTION: NO CHG FLUORO; FEMUR LEFT COMPLETED DATE/TIME: 11/16/2017 8:30 pm REASON FOR STUDY: ORIF LEFT FEMUR IM NAIL COMPARISON: None. FLUOROSCOPY TIME: 1.8 minutes 6 Images saved to PACS LIMITATIONS: None. PROCEDURE: ORIF left femur. FINDINGS: Images obtained with fluoro document placement of a long medullary elias in the femur. IMPRESSION: ORIF left femur fracture. Refer to operative note for further information. COMMENT: PQRS 6045F: Fluoroscopy time of the procedure is documented in the report. TECHNICAL DOCUMENTATION: JOB ID: [id number] [employer]- All Rights Reserved Reading location - IP/workstation name: [email or web address]
--- NOTE | 2017-11-16 20:40 | RADIOLOGY REPORT (SQ) ---
EXAM DESCRIPTION: NO CHG FLUORO; FEMUR LEFT COMPLETED DATE/TIME: 11/16/2017 8:30 pm REASON FOR STUDY: ORIF LEFT FEMUR IM NAIL COMPARISON: None. FLUOROSCOPY TIME: 1.8 minutes 6 Images saved to PACS LIMITATIONS: None. PROCEDURE: ORIF left femur. FINDINGS: Images obtained with fluoro document placement of a long medullary elias in the femur. IMPRESSION: ORIF left femur fracture. Refer to operative note for further information. COMMENT: PQRS 6045F: Fluoroscopy time of the procedure is documented in the report. TECHNICAL DOCUMENTATION: JOB ID: [id number] [employer]- All Rights Reserved Reading location - IP/workstation name: [email or web address]
--- NOTE | 2017-11-16 21:02 | Operative Report ---
Operative Report DATE OF SURGERY: 11/16/17 PREOPERATIVE DIAGNOSIS: Displaced left spiral femoral shaft fracture POSTOPERATIVE DIAGNOSIS: Displaced left spiral femoral shaft fracture OPERATION: Intramedullary nailing of left femoral shaft fracture SURGEON: DEONNA LOVE ANESTHESIA: GA TISSUE REMOVED OR ALTERED: None COMPLICATIONS: None ESTIMATED BLOOD LOSS: 100 mL INTRAOPERATIVE FINDINGS: As above PROCEDURE: After receiving preoperative antibiotics patient was brought to the operating room where he received [] anesthetic. Patient then was secured in the fracture table with the operative side placed in traction and the nonoperative side placed in a stirrup. Arms were also secured and out of the field. Post was applied in the groin and with the use of C-arm we were able to confirm appropriate reduction of the femoral shaft fracture. At this point timeout was done identifying the [] lower extremity as the correct site. The extremity was prepped and draped in a normal sterile surgical fashion. At this point a 1 inch incision proximal to the greater trochanter and about the level of the ASIS. With the knife for deep dissection was done to split the tensor fascia yared exposing the greater trochanter and abductor muscle. I then was able to use a guidepin to place it at the tip of the greater trochanter. Once I had the pain in proper placement I used the opening reamer. The long ball-tipped guide was then used to pass into the proximal fragment. The back table I did put a small bend at the tip. Well holding reduction of the fracture was able to successfully passed a guide wire into the distal fragment. C-arm pictures confirm placement of the guidewire. I measured the length to be [] millimeters. I then proceeded to ream all way until I obtained chatter. Proceeded then to placed appropriate length and diameter nail and was able to pass it through the proximal fragment into the distal fragment over the guidewire. Once the fracture was reduced and the nail was hammered down I then removed the guidewire. Then turned my attention to place my locking screws. I used the handle that was attached to the guide to then do my proximal locking screw. I used a skin knife and then dissected with a hemostat. C-arm pictures show that the trocar was down to the bone and I proceeded to drill and measure appropriately. I placed my proximal locking screw and then remove the jig. I then released the the leg and abducted the leg to allow for perfect circles of the distal portion. I made sure to not rotate the leg to maintain proper rotation. After getting perfect circles I was able then to use a skin knife and dissected with a hemostat. I used a drill and with the use of C arm drilled my distal locking screw. I made sure with C-arm that the drill was inside the nail and I was able to drill both cortex. I measured then I was able to apply my distal locking screw. AP and lateral x-rays show proper placement of my locking screws as well as the nail. Also satisfied with my fixation of the fracture site and position of the nail and distal locking screws I proceeded then to use bulb irrigation to clean the wounds and close my 3 incisions. The proximal incision I was able to close the tensor fascia yared layer as well as the subcutaneous fat using 0 Vicryl. All 3 incisions were closed with 2-0 Vicryl and then deysi for skin. Extremity was cleaned and then Xeroform 4 x 4 dressing was applied followed by Tegaderm. Drapes were removed and then the patient was successfully taken to PACU in a stable condition
[2017-11-17] MEDS ORDERED: CEFAZOLIN 2 GM/D5W RTU 50 ML IV SCH
[2017-11-17] MEDS: AMLODIPINE BESYLATE 2.5 MG TABLET PO SCH ×3 (00:54→22:44)
[2017-11-17] MEDS: FAMOTIDINE INJ/PF 20 MG/2 ML SDV IV SCH ×3 (00:54→22:42)
[2017-11-17] MEDS: RINGERS SOLUTION,LACTATED 1,000 ML IV PRN ×2 (01:18→09:38)
[2017-11-17] MEDS: MORPHINE SULFATE 10 MG/ML INJ IV PRN ×2 (01:18→06:12)
[2017-11-17] MEDS: CEFAZOLIN SODIUM 2 GM in DEXTROSE 5%-WATER 100 ML IV SCH ×4 (01:23→17:24)
[2017-11-17] MEDS: ACETAMINOPHEN 325 MG TABLET PO PRN (04:01)
[2017-11-17 05:44] LABS: ABSOLUTE BASOPHILS # (AUTO) 0.1 10^3/uL (0.0-0.2); ABSOLUTE LYMPHOCYTES (AUTO) 0.8 10^3/uL (0.5-4.7); ABSOLUTE MONOCYTES (AUTO) 0.7 10^3/uL (0.1-1.4); ABSOLUTE NEUT (AUTO) 9.4 10^3/uL (1.7-8.2); BASOPHILS % (AUTO) 0.6 % (0-2); EOSINOPHILS % (AUTO) 0.1 % (0-6); HEMOGLOBIN 10.3 g/dL (13.5-17.0); LYMPHOCYTES % (AUTO) 6.9 % (13-45); MEAN CORPUSCULAR HEMOGLOBIN 28.8 pg (27.0-33.4); MEAN CORPUSCULAR HGB CONC 33.2 g/dL (32.0-36.0); MEAN CORPUSCULAR VOLUME 87 fl (80-97); MONOCYTES % (AUTO) 6.8 % (3-13); PLATELET COUNT 191 10^3/uL (150-450); RED BLOOD COUNT 3.58 10^6/uL (4.35-5.55); RED CELL DISTRIBUTION WIDTH 15.2 % (11.5-14.0); SEGMENTED NEUTROPHILS % (AUTO) 85.6 % (42-78); TOTAL CELLS COUNTED % (AUTO) 100 %
[2017-11-17 06:06] LABS: ANION GAP 12 (5-19); BLOOD UREA NITROGEN 26 mg/dL (7-20); CALCIUM 9.5 mg/dL (8.4-10.2); CARBON DIOXIDE 20 mmol/L (22-30); CHLORIDE 108 mmol/L (98-107); GLUCOSE 169 mg/dL (75-110); SODIUM 139.5 mmol/L (137-145)
[2017-11-17] MEDS: OXYCODONE-ACETAMINOPHEN 5-325 MG TABLET PO PRN ×2 (08:16→22:43)
--- NOTE | 2017-11-17 09:27 | EKG REPORT ---
SEVERITY:- ABNORMAL ECG - SINUS RHYTHM BORDERLINE LEFT AXIS DEVIATION CONSIDER ANTEROSEPTAL INFARCT ABNORMAL T, CONSIDER ISCHEMIA, LATERAL LEADS APCs : Confirmed by: Joceline Malloy 17-Nov-2017 09:26:58
[2017-11-17] MEDS: THIAMINE HCL 100 MG TABLET PO SCH (09:37)
[2017-11-17] MEDS: DOCUSATE SODIUM 100 MG CAPSULE PO SCH ×2 (09:37→17:24)
[2017-11-17] MEDS: NITROGLYCERIN 2% OINTMENT 1 GM PACKET TP SCH ×3 (09:37→22:44)
[2017-11-17] MEDS: SITAGLIPTIN PHOSPHATE 50 MG TABLET PO SCH (09:37)
[2017-11-17] MEDS: ASPIRIN 81 MG TABLET, ENT COATED PO SCH (09:37)
[2017-11-17] MEDS: ENOXAPARIN SODIUM INJ 30 MG/0.3 ML DISP.SYRIN SUBCUT SCH (09:45)
[2017-11-17] MEDS ORDERED: (PENDING PHARMACY ID) (Linagliptin [Tradjenta] 5 MG) PO SCH (10:00)
[2017-11-17] MEDS ORDERED: (PENDING PHARMACY ID) (Thiamine Hcl [Vitamin B-1] 100 MG) PO SCH (10:00)
[2017-11-17] MEDS ORDERED: NORMAL SALINE 1000 ML 1,000 ML IV PRN (10:59)
[2017-11-17] MEDS: METOPROLOL TARTRATE 25 MG TABLET PO SCH ×2 (12:16→22:44)
--- NOTE | 2017-11-17 19:17 | Progress Note ---
Provider Note Provider Note: PROGRESS NOTE by Dr. Isabela Bland on 11/17/2017. SUBJECTIVE: The patient denies any chest pain or discomfort there is no shortness of breath , there is no PND orthopnea. There is no significant leg edema. There is no arrhythmias seen on the monitor. In spite of the patient not having anginal symptoms his troponin was elevated when asked to resume that the patient had a non-ST elevation MT. His renal function slightly improved with a GFR going to 54 mL/min. PHYSICAL EXAMINATION: The patient is well-built and well-nourished in no acute distress. The patient does appear to be slightly older than stated age. He is well-groomed. 11/17/17 15:18 Temperature 97.5 F Temperature Oral Source Pulse Rate 80 Respiratory 20 Rate Blood Pressure 153/53 H Blood Pressure 86 Mean BP Location Right Arm BP Position Supine Oxygen Delivery Room Air Method HEAD: Atraumatic, normocephalic. EYES: Pupils equal round and reactive to light, extraocular movements intact, sclera anicteric, conjunctiva are normal. ENT: TMs normal, nares patent, oropharynx clear without exudates. Moist mucous membranes. NECK: Normal range of motion, supple without lymphadenopathy or JVD. LUNGS: Breath sounds clear to auscultation bilaterally and equal. No wheezes rales or rhonchi. HEART: Regular rate and rhythm without murmurs, rubs or gallops. S1-S2 is normally heard. There is no S3 gallop there is no S4 gallop. Systolic murmur left sternal border and apex. There is no rub. ABDOMEN: Soft, nontender, normoactive bowel sounds. No guarding, no rebound. No masses appreciated. EXTREMITIES: There is trace bilateral pedal edema. No clubbing or cyanosis. Femorals are slightly diminished there is no femoral bruits. Leg persistently diminished. NEUROLOGIC: The patient is conscious awake alert oriented 3 with no focal deficits. PSYCH: Normal mood, normal affect. SKIN: Warm, Dry, normal turgor, no rashes or lesions noted. 11/17/17 11/17/17 11/17/17 05:00 05:00 06:41 WBC 11.0 H Hgb 10.3 L Hct 31.0 L Plt Count 191 Sodium 139.5 Potassium 4.0 Chloride 108 H Carbon Dioxide 20 L BUN 26 H Creatinine 1.56 H Est GFR ( Amer) 54 L Glucose 169 H Calcium 9.5 Troponin I 0.212 11/17/17 11:00 WBC Hgb Hct Plt Count Sodium Potassium Chloride Carbon Dioxide BUN Creatinine Est GFR ( Amer) Glucose Calcium Troponin I 0.253 EKG: Sinus rhythm LVH. Old anterior MT. Nonspecific T-wave changes lateral leads slightly more prominent than yesterday but only minimally so. IMPRESSION/RECOMMENDATION: 1. NON-ST elevation MT: The patient is asymptomatic, and there is no evidence of heart failure. Also his renal functions are compromised with this renal function still being chronic kidney disease stage IIIa. In view of this would maximize medical therapy. Will start the patient on enteric-coated aspirin 81 mg p.o. now and daily, place the patient on nitro paste at 0.5 mg every 6 hours. Continue the patient's amlodipine. We will start the patient on small dose of beta-shaggy and increase as tolerated. Since patient is asymptomatic and the patient's recent surgery will avoid full anticoagulation. 2. Accidental fall and fracture of the left femur. Patient is status post surgical repair. 3. Coronary artery disease, history of non-ST elevation MT in 2007, following which she had four-vessel coronary bypass 4raft surgery. The patient has no anginal symptoms. 5. History of cardiomyopathy with LV ejection fraction of 25% in 2008, post coronary artery bypass graft surgery ejection fraction is now normal and greater than 55%. Clinically no evidence of heart failure or history of heart failure. 6. Hypertension: Uncontrolled most likely secondary to pain. Will give the patient small dose of hydralazine. Intravenously. 7. Diabetes mellitus type 2 [id number], would continue the patient' s glipizide, and serial Accu-Cheks and regular insulin coverage as per sliding scale. 8. Chronic kidney disease stage III a. Would avoid any nephrotoxic medication. 9. History of prostate cancer. At present controlled with Lupron injections as per patient's son. 10. Remote history of colon cancer. Cured as per patient's son. No recurrence. 11. History of cerebrovascular accident, recovering well as per patient's son. 12. FEVER: Source needs to be identified. Will get blood and urine cultures, and continue the patient on antibiotics. Discussed with the son that the patient has a small non-ST elevation MT. Also discussed that at present in view of the patient's clinically stable condition without anginal symptoms or heart failure, and his renal status the best option at present would be to max treat him medically and maximize medical treatment of coronary artery disease. At present cardiac catheterization involves increased risk of the patient. Another thought is that the elevated troponin I could also be secondary to the patient renal status and also the patient's blood pressure which is uncontrolled on admission. Note medical decision making is of highly complex nature [high complexity]. 40 minutes spent on this patient more than 50% of time spent in direct patient care. We will recheck the patient's troponin I and EKG tomorrow morning. We will follow the patient. Discussed with Dr. Marisela Casarez on the telephone.
[2017-11-18] MEDS: CEFAZOLIN SODIUM 2 GM in DEXTROSE 5%-WATER 100 ML IV SCH ×4 (00:35→21:18)
[2017-11-18] MEDS: NITROGLYCERIN 2% OINTMENT 1 GM PACKET TP SCH ×4 (04:22→22:18)
[2017-11-18 05:17] LABS: ABSOLUTE BASOPHILS # (AUTO) 0.1 10^3/uL (0.0-0.2); ABSOLUTE EOSINOPHILS # (AUTO) 0.1 10^3/uL (0.0-0.6); ABSOLUTE LYMPHOCYTES (AUTO) 1.1 10^3/uL (0.5-4.7); ABSOLUTE MONOCYTES (AUTO) 1.1 10^3/uL (0.1-1.4); ABSOLUTE NEUT (AUTO) 7.8 10^3/uL (1.7-8.2); BASOPHILS % (AUTO) 0.5 % (0-2); EOSINOPHILS % (AUTO) 0.5 % (0-6); HEMATOCRIT 26.4 % (37.9-51.0); HEMOGLOBIN 8.7 g/dL (13.5-17.0); LYMPHOCYTES % (AUTO) 11.1 % (13-45); MEAN CORPUSCULAR HEMOGLOBIN 28.8 pg (27.0-33.4); MEAN CORPUSCULAR HGB CONC 32.9 g/dL (32.0-36.0); MEAN CORPUSCULAR VOLUME 87 fl (80-97); MONOCYTES % (AUTO) 10.9 % (3-13); PLATELET COUNT 182 10^3/uL (150-450); RED BLOOD COUNT 3.02 10^6/uL (4.35-5.55); RED CELL DISTRIBUTION WIDTH 15.2 % (11.5-14.0); TOTAL CELLS COUNTED % (AUTO) 100 %; WHITE BLOOD COUNT 10.1 10^3/uL (4.0-10.5)
[2017-11-18 05:39] LABS: ALANINE AMINOTRANSFERASE 16 U/L (21-72); ALBUMIN 3.1 g/dL (3.5-5.0); ALKALINE PHOSPHATASE 59 U/L (38-126); ANION GAP 7 (5-19); ASPARTATE AMINO TRANSFERASE 33 U/L (17-59); BILIRUBIN,DIRECT 0.3 mg/dL (0.0-0.4); BILIRUBIN,TOTAL 0.4 mg/dL (0.2-1.3); BLOOD UREA NITROGEN 30 mg/dL (7-20); CALCIUM 8.8 mg/dL (8.4-10.2); CARBON DIOXIDE 24 mmol/L (22-30); CHLORIDE 106 mmol/L (98-107); GLUCOSE 146 mg/dL (75-110); POTASSIUM 3.8 mmol/L (3.6-5.0); SODIUM 137.2 mmol/L (137-145); TOTAL PROTEIN 6.3 g/dL (6.3-8.2)
[2017-11-18] MEDS: THIAMINE HCL 100 MG TABLET PO SCH (09:06)
[2017-11-18] MEDS: AMLODIPINE BESYLATE 2.5 MG TABLET PO SCH ×2 (09:06→22:17)
[2017-11-18] MEDS: SITAGLIPTIN PHOSPHATE 50 MG TABLET PO SCH (09:06)
[2017-11-18] MEDS: DOCUSATE SODIUM 100 MG CAPSULE PO SCH ×2 (09:06→17:05)
[2017-11-18] MEDS: ASPIRIN 81 MG TABLET, ENT COATED PO SCH (09:06)
[2017-11-18] MEDS: METOPROLOL TARTRATE 25 MG TABLET PO SCH ×2 (09:07→22:16)
[2017-11-18] MEDS: FAMOTIDINE INJ/PF 20 MG/2 ML SDV IV SCH ×2 (09:07→22:18)
[2017-11-18] MEDS: ENOXAPARIN SODIUM INJ 30 MG/0.3 ML DISP.SYRIN SUBCUT SCH (09:07)
[2017-11-18] MEDS: MORPHINE SULFATE 10 MG/ML INJ IV PRN (14:06)
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
[2017-11-18] MEDS ORDERED: LORAZEPAM INJ 2 MG/1 ML VIAL ONE (17:34)
[2017-11-18] MEDS ORDERED: LIDOCAINE 0.5% INJ-PF (5 MG/ML) 50 ML SDV ONE (18:16)
[2017-11-18] MEDS ORDERED: LORAZEPAM INJ 2 MG/1 ML VIAL IM ONE (18:30)
--- NOTE | 2017-11-18 19:06 | RADIOLOGY REPORT (SQ) ---
EXAM DESCRIPTION: CHEST SINGLE VIEW COMPLETED DATE/TIME: 11/18/2017 6:55 pm REASON FOR STUDY: central line placement COMPARISON: AP chest 11/16/2017 CT chest 05/07/2017 EXAM PARAMETERS: NUMBER OF VIEWS: One view. TECHNIQUE: Single frontal radiographic view of the chest acquired. RADIATION DOSE: NA LIMITATIONS: None. FINDINGS: LUNGS AND PLEURA: Chronic elevation right hemidiaphragm. No acute infiltrates. No pleura l effusion or pneumothorax. MEDIASTINUM AND HILAR STRUCTURES: No masses. Contour normal. HEART AND VASCULAR STRUCTURES: Stable cardiomegaly. Old CABG BONES: No acute findings. HARDWARE: New right subclavian triple lumen catheter tip superior vena cava. Left permanent central line tip superior vena cava. OTHER: No other significant finding. IMPRESSION: Interval placement of a right subclavian triple lumen catheter with tip in the superior vena cava. No pneumothorax. TECHNICAL DOCUMENTATION: JOB ID: [id number] [employer]- All Rights Reserved Reading location - IP/workstation name: [email or web address]
--- NOTE | 2017-11-18 19:56 | Progress Note ---
Provider Note Provider Note: PROGRESS NOTE by Dr. MR Vermachan Renee . SUBJECTIVE: The patient denies any chest pain or discomfort there is no shortness of breath , there is no PND orthopnea. There is no significant leg edema. There is no arrhythmias seen on the monitor. In spite of the patient not having anginal symptoms his troponin was elevated when asked to resume that the patient had a non-ST elevation NH. His renal function slightly worsened with a GFR going to 41 mL/min. hemoglobin also has dropped 8.7, the patient is receiving blood. When the patient had severe pain he had a 12 beat run of nonsustained ventricular tachycardia, but the patient was asymptomatic, and there was no hemodynamic changes. PHYSICAL EXAMINATION: The patient is well-built and well-nourished in no acute distress. The patient does appear to be slightly older than stated age. He is well-groomed. He is has a low-grade temperature 99.5F his pulse is 75 bpm blood pressure is 135/58 respirations are 20/min O2 sats of 91% on room air HEAD: Atraumatic, normocephalic. EYES: Pupils equal round and reactive to light, extraocular movements intact, sclera anicteric, conjunctiva are normal. ENT: TMs normal, nares patent, oropharynx clear without exudates. Moist mucous membranes. NECK: Normal range of motion, supple without lymphadenopathy or JVD. LUNGS: Breath sounds clear to auscultation bilaterally and equal. No wheezes rales or rhonchi. HEART: Regular rate and rhythm without murmurs, rubs or gallops. S1-S2 is normally heard. There is no S3 gallop there is no S4 gallop. Systolic murmur left sternal border and apex. There is no rub. ABDOMEN: Soft, nontender, normoactive bowel sounds. No guarding, no rebound. No masses appreciated. EXTREMITIES: There is trace bilateral pedal edema. No clubbing or cyanosis. Femorals are slightly diminished there is no femoral bruits. Leg persistently diminished. NEUROLOGIC: The patient is conscious awake alert oriented 3 with no focal deficits. PSYCH: Normal mood, normal affect. SKIN: Warm, Dry, normal turgor, no rashes or lesions noted. The patient's white count is 10,100. His hemoglobin is 8.7 with a hematocrit of 26.4. His platelet count is 182,000. His sodium is 137.2, potassium is 3.8 , his chloride is 106, CO2 is 24. His BUN is 30 creatinine is 1.97 and GFR is 41 mL/h the patient blood glucose is 146. The patient liver function tests are normal with a low ALT of 16. The patient troponin I has trended down to 0.26 from 0.253 yesterday. His albumin is 3.1 and total protein 6.3. The patient's chest x-ray post triple-lumen placement shows no acute infiltrates. There is chronic elevation of the right hemidiaphragm. There tip of the triple-lumen catheter is in place. There is no pneumothorax. The patient's EKG shows sinus rhythm LVH by voltage T inversion lateral leads cannot exclude ischemia. Note that the poor R-wave in V1 to V4 seen on prior EKGs is most likely secondary to lead placement. At present EKG does not look like an old anterior NH. Old septal NH versus lead placement. IMPRESSION/RECOMMENDATION: 1. NON-ST elevation NH: The patient is asymptomatic, and there is no evidence of heart failure. Also his renal functions are compromised with this renal function still being chronic kidney disease stage IIIa. In view of this would maximize medical therapy. Will start the patient on enteric-coated aspirin 81 mg p.o. now and daily, place the patient on nitro paste at 0.5 mg every 6 hours. Continue the patient's amlodipine. We will start the patient on small dose of beta-shaggy and increase as tolerated. Since patient is asymptomatic and the patient's recent surgery will avoid full anticoagulation. 2. Accidental fall and fracture of the left femur. Patient is status post surgical repair. 3. Coronary artery disease, history of non-ST elevation NH in 2007, following which she had four-vessel coronary bypass 4raft surgery. The patient has no anginal symptoms. 5. History of cardiomyopathy with LV ejection fraction of 25% in 2008, post coronary artery bypass graft surgery ejection fraction is now normal and greater than 55%. Clinically no evidence of heart failure or history of heart failure. 6. Hypertension: Uncontrolled most likely secondary to pain. Will give the patient small dose of hydralazine. Intravenously. 7. Diabetes mellitus type 2 [id number], would continue the patient' s glipizide, and serial Accu-Cheks and regular insulin coverage as per sliding scale. 8. Chronic kidney disease stage III . Would avoid any nephrotoxic medication. Note that her renal function is deteriorated. We will stop the patient's IV fluids. 9. History of prostate cancer. At present controlled with Lupron injections as per patient's son. 10. Remote history of colon cancer. Cured as per patient's son. No recurrence. 11. History of cerebrovascular accident, recovering well as per patient's son. 12. FEVER: Source needs to be identified. Will get blood and urine cultures, and continue the patient on antibiotics. 13. Anemia: Agree with blood transfusion. 14. Nonsustained ventricular tachycardia.: We will increase the patient's beta -shaggy, and will also add Ranexa. Discussed with the son that the patient has a small non-ST elevation NH. Also discussed that at present in view of the patient's clinically stable condition without anginal symptoms or heart failure, and his renal status the best option at present would be to max treat him medically and maximize medical treatment of coronary artery disease. At present cardiac catheterization involves increased risk of the patient. Another thought is that the elevated troponin I could also be secondary to the patient renal status and also the patient's blood pressure which is uncontrolled on admission. Note medical decision making is of highly complex nature [high complexity]. 40 minutes spent on this patient more than 50% of time spent in direct patient care. We will recheck the patient's troponin I and EKG tomorrow morning. We will follow the patient. Discussed with Dr. Marisela Casarez on the telephone. Note that the patient has no IV access, and hence the nurses discussed with the patient's son and permission obtained for central line. This will be done by the surgical list.
--- NOTE | 2017-11-18 20:20 | OPERATIVE REPORT E ---
Operative Report NAME: SHABNAM BEE : 1950 AGE: 67Y DATE OF SURGERY: 11/18/2017 ROOM: 322 PREOPERATIVE DIAGNOSIS: POOR VEINS FOR INTRAVENOUS ACCESS. POSTOPERATIVE DIAGNOSIS: POOR VEINS FOR INTRAVENOUS ACCESS. OPERATION: Placement of right subclavian vein triple lumen catheter. SURGEON: ROXANNE CHIN M.D. ANESTHESIA: Local. INDICATION: The patient is a 67-year-old male who needed blood and the remaining IV that he has of the right arm has not been working. PROCEDURE: The patient is placed in Trendelenburg position and the right neck and upper chest were then prepped and draped in the usual sterile fashion. Local anesthesia infiltrated at the right infraclavicular area, and the right subclavian vein subsequently puncture and guidewire passed through the needle toward the area of the superior vena cava. The needle was removed and the puncture site dilated, and a triple lumen catheter was inserted through the guidewire to a distance of 17 cm, toward the area of the superior vena cava. The catheter was then anchored to the skin with 3-0 silk and all the 3 ports aspirated blood easily and instilled saline easily. Biopatch placed at the insertion site and transparent dressing placed over the Biopatch and catheter. The patient tolerated the procedure well. A chest x-ray will be obtained for placement. DICTATING PHYSICIAN: ROXANNE CHIN M.D. [id number] PHY#: [id number] ID: [id number] JOB#: [id number] ACCT: [id number] cc:ROXANNE CHIN M.D. >
[2017-11-18] MEDS ORDERED: RANOLAZINE 500 MG TAB.SR.12H PO ONE (21:00)
[2017-11-18] MEDS: OXYCODONE-ACETAMINOPHEN 5-325 MG TABLET PO PRN (22:16)
--- NOTE | 2017-11-18 23:55 | EKG REPORT ---
SEVERITY:- ABNORMAL ECG - SINUS RHYTHM MULTIPLE ATRIAL PREMATURE COMPLEXES FIRST DEGREE AV BLOCK BORDERLINE LEFT AXIS DEVIATION ABNORMAL T, CONSIDER ISCHEMIA, LATERAL LEADS : Confirmed by: Joceline Malloy 18-Nov-2017 23:54:28
[2017-11-19] MEDS: CEFAZOLIN SODIUM 2 GM in DEXTROSE 5%-WATER 100 ML IV SCH ×3 (00:02→11:51)
[2017-11-19] MEDS: NITROGLYCERIN 2% OINTMENT 1 GM PACKET TP SCH ×4 (03:58→22:33)
[2017-11-19 06:57] LABS: ABSOLUTE BASOPHILS # (AUTO) 0.1 10^3/uL (0.0-0.2); ABSOLUTE EOSINOPHILS # (AUTO) 0.2 10^3/uL (0.0-0.6); ABSOLUTE LYMPHOCYTES (AUTO) 0.9 10^3/uL (0.5-4.7); ABSOLUTE MONOCYTES (AUTO) 0.9 10^3/uL (0.1-1.4); ABSOLUTE NEUT (AUTO) 7.9 10^3/uL (1.7-8.2); BASOPHILS % (AUTO) 1.2 % (0-2); EOSINOPHILS % (AUTO) 2.4 % (0-6); HEMATOCRIT 27.6 % (37.9-51.0); HEMOGLOBIN 9.5 g/dL (13.5-17.0); LYMPHOCYTES % (AUTO) 9.1 % (13-45); MEAN CORPUSCULAR HEMOGLOBIN 29.5 pg (27.0-33.4); MEAN CORPUSCULAR HGB CONC 34.3 g/dL (32.0-36.0); MEAN CORPUSCULAR VOLUME 86 fl (80-97); PLATELET COUNT 164 10^3/uL (150-450); RED CELL DISTRIBUTION WIDTH 14.3 % (11.5-14.0); SEGMENTED NEUTROPHILS % (AUTO) 78.3 % (42-78); TOTAL CELLS COUNTED % (AUTO) 100 %; WHITE BLOOD COUNT 10.1 10^3/uL (4.0-10.5)
[2017-11-19 07:21] LABS: ANION GAP 5 (5-19); BLOOD UREA NITROGEN 30 mg/dL (7-20); CALCIUM 8.7 mg/dL (8.4-10.2); CARBON DIOXIDE 26 mmol/L (22-30); CHLORIDE 104 mmol/L (98-107); GLUCOSE 144 mg/dL (75-110); POTASSIUM 3.7 mmol/L (3.6-5.0)
[2017-11-19] MEDS: FAMOTIDINE INJ/PF 20 MG/2 ML SDV IV SCH ×2 (09:55→22:33)
[2017-11-19] MEDS: DOCUSATE SODIUM 100 MG CAPSULE PO SCH ×2 (09:55→17:34)
[2017-11-19] MEDS: AMLODIPINE BESYLATE 2.5 MG TABLET PO SCH ×2 (09:55→22:33)
[2017-11-19] MEDS: THIAMINE HCL 100 MG TABLET PO SCH (09:55)
[2017-11-19] MEDS: SITAGLIPTIN PHOSPHATE 50 MG TABLET PO SCH (09:55)
[2017-11-19] MEDS: ASPIRIN 81 MG TABLET, ENT COATED PO SCH (09:56)
[2017-11-19] MEDS: METOPROLOL TARTRATE 25 MG TABLET PO SCH ×2 (09:56→22:33)
[2017-11-19] MEDS: ENOXAPARIN SODIUM INJ 30 MG/0.3 ML DISP.SYRIN SUBCUT SCH (09:56)
[2017-11-19] MEDS: HYDRALAZINE HCL INJ/PF 20 MG/1 ML SDV IV PRN (11:51)
--- NOTE | 2017-11-19 14:54 | Progress Note ---
Provider Note Provider Note: PROGRESS NOTE by Dr. Isabela Bland for 11/19/2017. OBJECTIVE.: The patient denies any chest pain or discomfort. There is no further evidence of nonsustained ventricular tachycardia. There is no PND orthopnea or shortness of breath. The patient denies any palpitations. There is no dizziness or syncope. The patient now is afebrile. There is no arrhythmias seen on the monitor today. There is no TIA or CVA symptoms. PHYSICAL EXAMINATION: The patient is well-built and well-nourished although he looks slightly older than his stated age. He is in no acute distress. Selected Entries 11/18/17 11/18/17 11/19/17 07:34 18:31 12:00 Temperature 99.6 F 99.6 F 98.8 F Temperature Oral Oral Axillary Source Pulse Rate 85 81 65 Respiratory 16 16 16 Rate Blood Pressure 150/64 H Blood Pressure 157/73 H 154/58 H [Right Upper Arm] Blood Pressure 92 Mean Blood Pressure 101 90 Mean [Right Upper Arm] O2 Sat by Pulse 97 96 100 Oximetry Oxygen Delivery Room Air Room Air Method ( includes room air) Oxygen Delivery Room Air Method HEAD: Is atraumatic normocephalic. EYES: Pupils equal round regular reactive to light accommodation extraocular movements are normal there is no conjunctival pallor there is no scleral icterus. ENT is negative. NECK: Neck is supple there is no JVD carotids equal there is no bruit there is no lymphadenopathy there is no goiter. Trachea is central. There is no accessory muscles of respiration in use. LUNGS: Lungs are clear to auscultation percussion without rhonchi rales or wheezing. There is no chest wall tenderness. HEART: S1-S2 is heard S1 is of normal intensity. There is no S3 or S4 gallops. The systolic murmur left sternal border and apex there is no rub. GI: Abdomen is soft nontender there is no hepatosplenomegaly, bowel sounds well heard, and there is no tender areas of masses. There is no rebound guarding or rigidity. EXTREMITIES: Femorals are diminished there is no femoral bruits neck pulses are diminished. There is trace pedal edema bilaterally. There is no DVT or cellulitis. There is no sinus or clubbing. There is no calf tenderness. 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 PSYCHIATRIC: The patient does not appear to be agitated. His affect seems to be normal. In-depth psychiatric examination not done. 11/18/17 11/18/17 11/18/17 04:42 04:42 04:42 WBC 10.1 Hgb 8.7 L Hct 26.4 L Plt Count 182 Sodium 137.2 Potassium 3.8 Chloride 106 Carbon Dioxide 24 BUN 30 H Creatinine 1.97 H Est GFR ( Amer) 41 L Glucose 146 H Calcium 8.8 Total Bilirubin 0.4 Direct Bilirubin 0.3 Neonat Total Bilirubin Not Reportable Neonat Direct Bilirubin Not Reportable Neonat Indirect Bili Not Reportable AST 33 ALT 16 L Alkaline Phosphatase 59 Troponin I 0.126 Total Protein 6.3 Albumin 3.1 L 11/19/17 11/19/17 11/19/17 06:45 06:45 06:45 WBC 10.1 Hgb 9.5 L Hct 27.6 L Plt Count 164 Sodium 135.0 L Potassium 3.7 Chloride 104 Carbon Dioxide 26 BUN 30 H Creatinine 1.77 H Est GFR ( Amer) 47 L Glucose 144 H Calcium 8.7 Total Bilirubin Direct Bilirubin Neonat Total Bilirubin Neonat Direct Bilirubin Neonat Indirect Bili AST ALT Alkaline Phosphatase Troponin I 0.074 Total Protein Albumin IMPRESSION/RECOMMENDATION: 1. NON-ST elevation CT: The patient is asymptomatic, and there is no evidence of heart failure. Also his renal functions are compromised with this renal function still being chronic kidney disease stage IIIa. In view of this would maximize medical therapy. We will continue the patient's entry coated aspirin, and beta-shaggy. Would change the patient's nitro paste to isosorbide mononitrate 30 mg once daily and increase as tolerated. Note that the troponin I has trended down further. We will continue the patient on Ranexa. 2. Accidental fall and fracture of the left femur. Patient is status post surgical repair. 3. Coronary artery disease, history of non-ST elevation CT in 2007, following which she had four-vessel coronary bypass 4raft surgery. The patient has no anginal symptoms. 5. History of cardiomyopathy with LV ejection fraction of 25% in 2007, post coronary artery bypass graft surgery ejection fraction is now normal and greater than 55%. Clinically no evidence of heart failure or history of heart failure. 6. Hypertension: Uncontrolled most likely secondary to pain. Will give the patient small dose of hydralazine. Intravenously. 7. Diabetes mellitus type 2 [id number], would continue the patient' s glipizide, and serial Accu-Cheks and regular insulin coverage as per sliding scale. 8. Chronic kidney disease stage III . Would avoid any nephrotoxic medication. Note that his renal function is slightly improved. The IV fluids has been stopped. 9. History of prostate cancer. At present controlled with Lupron injections as per patient's son. 10. Remote history of colon cancer. Cured as per patient's son. No recurrence. 11. History of cerebrovascular accident, recovering well as per patient's son. 12. FEVER: Source needs to be identified. Will get blood and urine cultures, and continue the patient on antibiotics. Patient now is afebrile. His blood and urine cultures are negative with no growth. 13. Anemia: Agree with blood transfusion. Recommend consider starting the patient on ferrous sulfate. 14. Nonsustained ventricular tachycardia.: We will increase the patient's beta -shaggy, and will also add Ranexa. There is no recurrence of nonsustained ventricular tachycardia. Discussed on the telephone with Dr. Marisela Casarez the attending physician for whom I am covering. Also discussed with the patient's son and brought him up-to -date with the the patient's clinical condition and that the troponin rise trending down. Will follow with you note 40 minutes spent on this patient more than 50% time spent on direct patient care. Medical decision making is still moderate to high complexity.
[2017-11-19] MEDS: INSULIN LISPRO 100 UNIT/ML 3 ML VIAL SUBCUT PRN (17:33)
[2017-11-19] MEDS: CEFAZOLIN 2 GM/D5W RTU 2 GM/50 ML RTUPB IV SCH (17:34)
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
[2017-11-19] MEDS: ACETAMINOPHEN 325 MG TABLET PO PRN (22:33)
[2017-11-19] MEDS: RIVAROXABAN 10 MG TABLET PO SCH (22:33)
[2017-11-20] MEDS: CEFAZOLIN 2 GM/D5W RTU 2 GM/50 ML RTUPB IV SCH ×4 (00:20→17:59)
[2017-11-20] MEDS: NITROGLYCERIN 2% OINTMENT 1 GM PACKET TP SCH ×4 (03:14→21:55)
[2017-11-20] MEDS: OXYCODONE-ACETAMINOPHEN 5-325 MG TABLET PO PRN ×3 (07:27→22:19)
[2017-11-20] MEDS: SITAGLIPTIN PHOSPHATE 50 MG TABLET PO SCH (11:56)
[2017-11-20] MEDS: DOCUSATE SODIUM 100 MG CAPSULE PO SCH ×2 (11:56→17:59)
[2017-11-20] MEDS: THIAMINE HCL 100 MG TABLET PO SCH (11:56)
[2017-11-20] MEDS: AMLODIPINE BESYLATE 2.5 MG TABLET PO SCH ×2 (11:57→22:16)
[2017-11-20] MEDS: FAMOTIDINE INJ/PF 20 MG/2 ML SDV IV SCH ×2 (11:57→22:17)
[2017-11-20] MEDS: METOPROLOL TARTRATE 25 MG TABLET PO SCH (12:49)
[2017-11-20] MEDS: HYDRALAZINE HCL INJ/PF 20 MG/1 ML SDV IV PRN (17:59)
[2017-11-20] MEDS: INSULIN LISPRO 100 UNIT/ML 3 ML VIAL SUBCUT PRN (18:00)
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
[2017-11-20] MEDS: RIVAROXABAN 10 MG TABLET PO SCH (22:17)
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
[2017-11-21] MEDS: CEFAZOLIN 2 GM/D5W RTU 2 GM/50 ML RTUPB IV SCH ×4 (00:53→17:41)
[2017-11-21] MEDS: NITROGLYCERIN 2% OINTMENT 1 GM PACKET TP SCH ×4 (03:58→20:26)
[2017-11-21] MEDS: OXYCODONE-ACETAMINOPHEN 5-325 MG TABLET PO PRN ×2 (05:46→10:05)
[2017-11-21] MEDS: AMLODIPINE BESYLATE 2.5 MG TABLET PO SCH ×2 (09:59→21:15)
[2017-11-21] MEDS: FAMOTIDINE INJ/PF 20 MG/2 ML SDV IV SCH ×2 (09:59→21:16)
[2017-11-21] MEDS: SITAGLIPTIN PHOSPHATE 50 MG TABLET PO SCH (10:00)
[2017-11-21] MEDS: DOCUSATE SODIUM 100 MG CAPSULE PO SCH ×2 (10:00→17:41)
[2017-11-21] MEDS: THIAMINE HCL 100 MG TABLET PO SCH (10:00)
[2017-11-21] MEDS: INSULIN LISPRO 100 UNIT/ML 3 ML VIAL SUBCUT PRN ×2 (12:52→23:26)
--- NOTE | 2017-11-21 13:36 | Progress Note ---
Provider Note Provider Note: PROGRESS NOTE by Dr. Isabela Bland for 11/21/2017. SUBJECTIVE: The patient appears to be in no acute distress. He denies any chest pain or discomfort there is no shortness of breath there is no PND orthopnea. There is no recurrence of nonsustained ventricular tachycardia. There is no arrhythmias seen there is no dizziness near dizziness or syncope. There is no TIA or CVA symptoms.. PHYSICAL EXAMINATION: The patient is well-built and well-nourished in no acute distress. He is well-groomed but appears to be slightly older than his stated age. Selected Entries 11/21/17 07:31 Temperature 98.5 F Temperature Oral Source Pulse Rate 68 Respiratory 18 Rate Blood Pressure 130/62 H Blood Pressure 84 Mean O2 Sat by Pulse 95 Oximetry Oxygen Delivery Room Air Method HEAD: Is atraumatic normocephalic. EYES: Pupils equal round regular reactive to light accommodation extraocular movements are normal there is no conjunctival pallor there is no scleral icterus. ENT is negative. NECK: Neck is supple there is no JVD carotids equal there is no bruit there is no lymphadenopathy there is no goiter. Trachea is central. There is no accessory muscles of respiration in use. LUNGS: Lungs are clear to auscultation percussion without rhonchi rales or wheezing. There is no chest wall tenderness. HEART: S1-S2 is heard S1 is of normal intensity. There is no S3 or S4 gallops. The systolic murmur left sternal border and apex there is no rub. GI: Abdomen is soft nontender there is no hepatosplenomegaly, bowel sounds well heard, and there is no tender areas of masses. There is no rebound guarding or rigidity. EXTREMITIES: Femorals are diminished there is no femoral bruits neck pulses are diminished. There is trace pedal edema bilaterally. There is no DVT or cellulitis. There is no sinus or clubbing. There is no calf tenderness. 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 PSYCHIATRIC: The patient does not appear to be agitated. His affect seems to be normal. In-depth psychiatric examination not done. 11/19/17 06:45 Troponin I 0.074 IMPRESSION/RECOMMENDATION: 1. NON-ST elevation [place]: The patient is asymptomatic, and there is no evidence of heart failure. Also his renal functions are compromised with this renal function still being chronic kidney disease stage IIIa. In view of this would maximize medical therapy. We will continue the patient's entry coated aspirin, and beta-shaggy. Would change the patient's nitro paste to isosorbide mononitrate 30 mg once daily and increase as tolerated. Note that the troponin I has trended down further. We will continue the patient on Ranexa. 2. Accidental fall and fracture of the left femur. Patient is status post surgical repair. 3. Coronary artery disease, history of non-ST elevation [place] in 2007, following which she had four-vessel coronary bypass 4raft surgery. The patient has no anginal symptoms. 5. History of cardiomyopathy with LV ejection fraction of 25% in 2008, post coronary artery bypass graft surgery ejection fraction is now normal and greater than 55%. Clinically no evidence of heart failure or history of heart failure. 6. Hypertension: Uncontrolled most likely secondary to pain. Will give the patient small dose of hydralazine. Intravenously. 7. Diabetes mellitus type 2 [id number], would continue the patient' s glipizide, and serial Accu-Cheks and regular insulin coverage as per sliding scale. 8. Chronic kidney disease stage III . Would avoid any nephrotoxic medication. Note that his renal function is slightly improved. The IV fluids has been stopped. 9. History of prostate cancer. At present controlled with Lupron injections as per patient's son. 10. Remote history of colon cancer. Cured as per patient's son. No recurrence. 11. History of cerebrovascular accident, recovering well as per patient's son. 12. FEVER: No recurrence. His blood and urine cultures are negative. Most likely fever was reactive to the patient's hip fracture/hematoma at the fracture site. 13. Anemia: Agree with blood transfusion. Will start patient on ferrous sulfate. 14. Nonsustained ventricular tachycardia.: Note in view of the heart rate the patient's beta-shaggy has been temporarily held, and will also add Ranexa. There is no recurrence of nonsustained ventricular tachycardia. Today the heart rate seems to be 68 bpm. Hence will resume beta blockers from from 2017. Note medical decision making is of moderate complexity. His medications have been reviewed and adjusted. Note 35 minutes spent on this patient more than 50 % of time spent in direct patient care. Discussed with Dr. Bakari Casarez on the telephone. Will follow with you.
--- NOTE | 2017-11-21 15:07 | PDOC PROGRESS REPORT ---
Subjective Progress Note for:: 11/21/17 Subjective:: Patient is resting comfortably in bed. No issues overnight Reason For Visit: STATUS POST NAILING OF LEFT FEMORAL SHAFT FRACTURE Physical Exam Vital Signs: Temp Pulse Resp BP Pulse Ox 36.9 C 68 18 130/62 H 95 11/21/17 07:31 11/21/17 07:31 11/21/17 07:31 11/21/17 07:31 11/21/17 07:31 Intake & Output 11/20/17 11/21/17 11/22/17 06:59 06:59 06:59 Intake Total 587 730 220 Balance 587 730 220 Weight 91.5 kg 91.5 kg Adult Front & Back Image: 1 - Mild serous drainage from the dressing. Distal dressing is dry clean and intact. Tenderness and swelling unchanged. Neurovascular intact distally with soft calves and negative Homans sign Results Laboratory Results: 11/19/17 06:45 11/19/17 06:45 11/17/17 11/17/17 11/18/17 06:41 11:00 04:42 Troponin I 0.212 0.253 0.126 11/19/17 06:45 Troponin I 0.074 Impressions: Fluoroscopy 11/16/17 00:00 IMPRESSION: ORIF left femur fracture. Refer to operative note for further information. Femur X-Ray 11/16/17 05:50 IMPRESSION: Fracture of the left femoral shaft. Pelvis X-Ray 11/16/17 05:50 IMPRESSION: No acute fracture or dislocation of the bony pelvis. Chest X-Ray 11/18/17 18:19 IMPRESSION: Interval placement of a right subclavian triple lumen catheter with tip in the superior vena cava. No pneumothorax. Assessment & Plan - Diagnosis (1) Left femoral shaft fracture Qualifiers: Encounter type: initial encounter Fracture type: closed Fracture morphology: spiral Fracture alignment: displaced Qualified Code(s): S72.342A - Displaced spiral fracture of shaft of left femur, initial encounter for closed fracture Is this a current diagnosis for this admission?: Yes - Plan Summary Plan Summary: 67-year-old gentleman who is postop day 5 from left femoral nailing for a spiral fracture of the femur. Continue toe-touch weightbearing and DVT prophylaxis. Also continue pain control. [place] should come out at 10-14 days after surgery. At this point awaiting transfer to custodial facility.
[2017-11-21] MEDS: MORPHINE SULFATE 10 MG/ML INJ IV PRN (20:09)
[2017-11-21] MEDS: HYDRALAZINE HCL INJ/PF 20 MG/1 ML SDV IV PRN (20:25)
[2017-11-21] MEDS: RIVAROXABAN 10 MG TABLET PO SCH (21:15)
[2017-11-21] MEDS ORDERED: METOPROLOL SUCCINATE 25 MG TAB.SR.24H PO ONE (22:12)
[2017-11-21] MEDS ORDERED: METOPROLOL TARTRATE PF/INJ 5 MG/5 ML SDV IV ONE ×2 (22:12→22:30)
[2017-11-21] MEDS ORDERED: METOPROLOL TARTRATE 25 MG TABLET PO ONE (22:30)
[2017-11-22] MEDS: CEFAZOLIN 2 GM/D5W RTU 2 GM/50 ML RTUPB IV SCH ×4 (01:07→17:27)
[2017-11-22] MEDS: NITROGLYCERIN 2% OINTMENT 1 GM PACKET TP SCH ×4 (03:28→21:26)
[2017-11-22] MEDS: METOPROLOL SUCCINATE 25 MG TAB.SR.24H PO SCH ×2 (10:05→21:26)
[2017-11-22] MEDS: DOCUSATE SODIUM 100 MG CAPSULE PO SCH ×2 (10:06→17:28)
[2017-11-22] MEDS: AMLODIPINE BESYLATE 2.5 MG TABLET PO SCH ×2 (10:07→21:26)
[2017-11-22] MEDS: FAMOTIDINE INJ/PF 20 MG/2 ML SDV IV SCH ×2 (10:07→21:26)
[2017-11-22] MEDS: SITAGLIPTIN PHOSPHATE 50 MG TABLET PO SCH (10:07)
[2017-11-22] MEDS: THIAMINE HCL 100 MG TABLET PO SCH (10:07)
[2017-11-22] MEDS: OXYCODONE-ACETAMINOPHEN 5-325 MG TABLET PO PRN (10:18)
--- NOTE | 2017-11-22 10:53 | PDOC PROGRESS REPORT ---
Subjective Progress Note for:: 11/22/17 Subjective:: pt is doing well denied any chest pain no sob pt hr go up and start b shaggy d/w son on on bed side d/w pt and need rehab Reason For Visit: STATUS POST NAILING OF LEFT FEMORAL SHAFT FRACTURE Physical Exam Vital Signs: Temp Pulse Resp BP Pulse Ox 98.2 F 65 18 159/62 H 97 11/22/17 07:49 11/22/17 07:49 11/22/17 07:49 11/22/17 07:49 11/22/17 07:49 Intake & Output 11/21/17 11/22/17 11/23/17 06:59 06:59 06:59 Intake Total 730 730 Output Total 1 Balance 730 729 Weight 91.5 kg 88.4 kg General appearance: PRESENT: no acute distress, well-developed, well-nourished Head exam: PRESENT: atraumatic, normocephalic Eye exam: PRESENT: conjunctiva pink, EOMI, PERRLA. ABSENT: scleral icterus Ear exam: PRESENT: normal external ear exam Mouth exam: PRESENT: moist, tongue midline Neck exam: PRESENT: full ROM. ABSENT: carotid bruit, JVD, lymphadenopathy, thyromegaly Respiratory exam: PRESENT: clear to auscultation janelle Cardiovascular exam: PRESENT: RRR. ABSENT: diastolic murmur, rubs, systolic murmur Pulses: PRESENT: normal dorsalis pedis pul, +2 pedal pulses bilateral Vascular exam: PRESENT: normal capillary refill GI/Abdominal exam: PRESENT: normal bowel sounds, soft. ABSENT: distended, guarding, mass, organolmegaly, rebound, tenderness Rectal exam: PRESENT: deferred Extremities exam: ABSENT: pedal edema Additional comments: lt side thigh dresing intct Neurological exam: PRESENT: alert, awake, oriented to person, oriented to place , oriented to time, oriented to situation, CN II-XII grossly intact. ABSENT: motor sensory deficit Psychiatric exam: PRESENT: appropriate affect, normal mood. ABSENT: homicidal ideation, suicidal ideation Skin exam: PRESENT: dry, intact, warm. ABSENT: cyanosis, rash Results Laboratory Results: 11/19/17 06:45 11/19/17 06:45 11/17/17 11/17/17 11/18/17 06:41 11:00 04:42 Troponin I 0.212 0.253 0.126 11/19/17 06:45 Troponin I 0.074 Impressions: Fluoroscopy 11/16/17 00:00 IMPRESSION: ORIF left femur fracture. Refer to operative note for further information. Femur X-Ray 11/16/17 05:50 IMPRESSION: Fracture of the left femoral shaft. Pelvis X-Ray 11/16/17 05:50 IMPRESSION: No acute fracture or dislocation of the bony pelvis. Chest X-Ray 11/18/17 18:19 IMPRESSION: Interval placement of a right subclavian triple lumen catheter with tip in the superior vena cava. No pneumothorax. Assessment & Plan - Diagnosis (1) Left femoral shaft fracture Qualifiers: Encounter type: initial encounter Fracture type: closed Fracture morphology: spiral Fracture alignment: displaced Qualified Code(s): S72.342A - Displaced spiral fracture of shaft of left femur, initial encounter for closed fracture Is this a current diagnosis for this admission?: Yes Plan: s/p surgery (2) Hypertension Qualifiers: Hypertension type: essential hypertension Qualified Code(s): I10 - Essential (primary) hypertension Is this a current diagnosis for this admission?: Yes (3) CAD (coronary artery disease) Qualifiers: Coronary Disease-Associated Artery/Lesion type: unspecified vessel or lesion type [place] vs. transplanted heart: [place] heart Associated angina: without angina Qualified Code(s): I25.10 - Atherosclerotic heart disease of [place] coronary artery without angina pectoris Is this a current diagnosis for this admission?: Yes (4) Prostate CA Is this a current diagnosis for this admission?: Yes Plan: on mediction and f/u with dr fierro (5) Diabetes mellitus Qualifiers: Diabetes mellitus type: type 2 Diabetes mellitus complication detail: with chronic kidney disease Chronic kidney disease stage: stage 3 (moderate) Is this a current diagnosis for this admission?: Yes Plan: all stble (6) Frequent falls Is this a current diagnosis for this admission?: Yes Plan: need pt and rehab (7) Non-ST elevated myocardial infarction Is this a current diagnosis for this admission?: Yes Plan: f/u with cardiology (8) Anemia Qualifiers: Anemia type: unspecified type Qualified Code(s): D64.9 - Anemia, unspecified Is this a current diagnosis for this admission?: Yes (9) Cerebrovascular accident Qualifiers: Laterality of affected vessel: unspecified Is this a current diagnosis for this admission?: No - Time Time Spent with patient: 25-34 minutes Medications reviewed and adjusted accordingly: Yes Anticipated discharge: SNF Within: within 48 hours - Inpatient Certification Medical Necessity: Need Close Monitoring Due to Risk of Patient Decompensation Post Hospital Care: D/C Computer Console Operator Documentation - Plan Summary Plan Summary: cont curr med
[2017-11-22] MEDS: MORPHINE SULFATE 10 MG/ML INJ IV PRN ×2 (14:00→21:27)
--- NOTE | 2017-11-22 20:58 | Progress Note ---
Provider Note Provider Note: PROGRESS NOTE by Dr. Isabela Bland for 11/22/2017. SUBJECTIVE: The patient appears to be in no acute distress. He denies any chest pain or discomfort there is no shortness of breath there is no PND orthopnea. There is no recurrence of nonsustained ventricular tachycardia. There is no arrhythmias seen there is no dizziness near dizziness or syncope. There is no TIA or CVA symptoms.. Note that the patient is being restarted on his beta-shaggy, and the patient is not tachycardic in fact his right heart rate is 59 bpm. Selected Entries 11/22/17 11:30 Temperature 98.9 F Pulse Rate 59 L Respiratory 18 Rate Blood Pressure 122/55 L Blood Pressure 77 Mean BP Location Right Arm BP Position Supine O2 Sat by Pulse 97 Oximetry Oxygen Delivery Room Air Method PHYSICAL EXAMINATION: The patient is well-built and well-nourished in no acute distress. He is well-groomed but appears to be slightly older than his stated age. PHYSICAL EXAMINATION: The patient is well-built and well-nourished in no acute distress. He is well-groomed but appears to be slightly older than his stated age. HEAD: Is atraumatic normocephalic. EYES: Pupils equal round regular reactive to light accommodation extraocular movements are normal there is no conjunctival pallor there is no scleral icterus. ENT is negative. NECK: Neck is supple there is no JVD carotids equal there is no bruit there is no lymphadenopathy there is no goiter. Trachea is central. There is no accessory muscles of respiration in use. LUNGS: Lungs are clear to auscultation percussion without rhonchi rales or wheezing. There is no chest wall tenderness. HEART: S1-S2 is heard S1 is of normal intensity. There is no S3 or S4 gallops. The systolic murmur left sternal border and apex there is no rub. GI: Abdomen is soft nontender there is no hepatosplenomegaly, bowel sounds well heard, and there is no tender areas of masses. There is no rebound guarding or rigidity. EXTREMITIES: Femorals are diminished there is no femoral bruits neck pulses are diminished. There is trace pedal edema bilaterally. There is no DVT or cellulitis. There is no sinus or clubbing. There is no calf tenderness. SUBSTANCE ADDICTION COORDINATOR: The patient is conscious awake alert oriented 3 with no focal deficits. PSYCHIATRIC: The patient does not appear to be agitated. His affect seems to be normal. In-depth psychiatric examination not done. IMPRESSION/RECOMMENDATION: 1. NON-ST elevation [place]: The patient is asymptomatic, and there is no evidence of heart failure. Also his renal functions are compromised with this renal function still being chronic kidney disease stage IIIa. In view of this would maximize medical therapy. We will continue the patient's entry coated aspirin, and beta-shaggy. Would change the patient's nitro paste to isosorbide mononitrate 30 mg once daily and increase as tolerated. Note that the troponin I has trended down further. We will continue the patient on Ranexa. 2. Accidental fall and fracture of the left femur. Patient is status post surgical repair. 3. Coronary artery disease, history of non-ST elevation [place] in 2007, following which she had four-vessel coronary bypass 4raft surgery. The patient has no anginal symptoms. 5. History of cardiomyopathy with LV ejection fraction of 25% in 2007, post coronary artery bypass graft surgery ejection fraction is now normal and greater than 55%. Clinically no evidence of heart failure or history of heart failure. 6. Hypertension: Uncontrolled most likely secondary to pain. Will give the patient small dose of hydralazine. Intravenously. 7. Diabetes mellitus type 2 [id number], would continue the patient' s glipizide, and serial Accu-Cheks and regular insulin coverage as per sliding scale. 8. Chronic kidney disease stage III . Would avoid any nephrotoxic medication. Note that his renal function is slightly improved. The IV fluids has been stopped. 9. History of prostate cancer. At present controlled with Lupron injections as per patient's son. 10. Remote history of colon cancer. Cured as per patient's son. No recurrence. 11. History of cerebrovascular accident, recovering well as per patient's son. 12. FEVER: No recurrence. His blood and urine cultures are negative. Most likely fever was reactive to the patient's hip fracture/hematoma at the fracture site. 13. Anemia: Will start patient on ferrous sulfate. 14. Nonsustained ventricular tachycardia.: Note in view of the heart rate the patient's beta-shaggy has been restarted, and will also add Ranexa. There is no recurrence of nonsustained ventricular tachycardia. Note medical decision making is of moderate complexity. His medications have been reviewed. Medical decision making is of moderate complexity. The patient' s cardiac status is stable, hence will sign off. Discussed with Dr. Casarez. Note 35 minutes spent on this patient more than 50% of time spent in direct patient care.
[2017-11-22] MEDS: RIVAROXABAN 10 MG TABLET PO SCH (21:26)
[2017-11-23] MEDS: CEFAZOLIN 2 GM/D5W RTU 2 GM/50 ML RTUPB IV SCH ×2 (00:47→05:51)
[2017-11-23] MEDS: NITROGLYCERIN 2% OINTMENT 1 GM PACKET TP SCH ×4 (04:16→22:23)
[2017-11-23] MEDS: OXYCODONE-ACETAMINOPHEN 5-325 MG TABLET PO PRN (05:51)
[2017-11-23 06:17] LABS: ABSOLUTE EOSINOPHILS # (AUTO) 0.2 10^3/uL (0.0-0.6); ABSOLUTE LYMPHOCYTES (AUTO) 0.8 10^3/uL (0.5-4.7); ABSOLUTE MONOCYTES (AUTO) 1.1 10^3/uL (0.1-1.4); ABSOLUTE NEUT (AUTO) 8.4 10^3/uL (1.7-8.2); BASOPHILS % (AUTO) 0.4 % (0-2); EOSINOPHILS % (AUTO) 1.9 % (0-6); HEMATOCRIT 28.4 % (37.9-51.0); HEMOGLOBIN 9.7 g/dL (13.5-17.0); LYMPHOCYTES % (AUTO) 7.7 % (13-45); MEAN CORPUSCULAR HEMOGLOBIN 29.3 pg (27.0-33.4); MEAN CORPUSCULAR HGB CONC 34.1 g/dL (32.0-36.0); MEAN CORPUSCULAR VOLUME 86 fl (80-97); MONOCYTES % (AUTO) 10.3 % (3-13); PLATELET COUNT 269 10^3/uL (150-450); RED BLOOD COUNT 3.31 10^6/uL (4.35-5.55); RED CELL DISTRIBUTION WIDTH 14.8 % (11.5-14.0); SEGMENTED NEUTROPHILS % (AUTO) 79.7 % (42-78); TOTAL CELLS COUNTED % (AUTO) 100 %; WHITE BLOOD COUNT 10.5 10^3/uL (4.0-10.5)
[2017-11-23 06:35] LABS: ANION GAP 8 (5-19); BLOOD UREA NITROGEN 41 mg/dL (7-20); CALCIUM 9.2 mg/dL (8.4-10.2); CARBON DIOXIDE 27 mmol/L (22-30); CHLORIDE 101 mmol/L (98-107); GLUCOSE 133 mg/dL (75-110); POTASSIUM 3.8 mmol/L (3.6-5.0)
[2017-11-23] MEDS: METOPROLOL SUCCINATE 25 MG TAB.SR.24H PO SCH ×2 (09:45→22:22)
[2017-11-23] MEDS: FAMOTIDINE INJ/PF 20 MG/2 ML SDV IV SCH ×2 (09:46→22:27)
[2017-11-23] MEDS: DOCUSATE SODIUM 100 MG CAPSULE PO SCH ×2 (09:47→17:23)
[2017-11-23] MEDS: AMLODIPINE BESYLATE 2.5 MG TABLET PO SCH ×2 (09:47→22:23)
[2017-11-23] MEDS: THIAMINE HCL 100 MG TABLET PO SCH (09:47)
[2017-11-23] MEDS: SITAGLIPTIN PHOSPHATE 50 MG TABLET PO SCH (09:48)
[2017-11-23] MEDS: FERROUS SULFATE LIQUID 300 MG/5 ML UDC PO SCH ×2 (09:49→17:23)
[2017-11-23] MEDS: POLYETHYLENE GLYCOL 3350 POWDER 17 GM/1 PACKET PO SCH (09:49)
[2017-11-23] MEDS: 1/2 NORMAL SALINE 1,000 ML IV PRN (09:50)
--- NOTE | 2017-11-23 09:56 | PDOC PROGRESS REPORT ---
Subjective Progress Note for:: 11/23/17 Subjective:: pt is doing well denied any chest pain no sob pt hr go up and start b shaggy d/w son on on bed side d/w pt and need rehab Reason For Visit: STATUS POST NAILING OF LEFT FEMORAL SHAFT FRACTURE Physical Exam Vital Signs: Temp Pulse Resp BP Pulse Ox 97.7 F 58 L 14 149/65 H 100 11/23/17 07:40 11/23/17 07:40 11/23/17 07:40 11/23/17 07:40 11/23/17 07:40 Intake & Output 11/22/17 11/23/17 11/24/17 06:59 06:59 06:59 Intake Total 730 1594 Output Total 1 Balance 729 1594 Weight 88.4 kg 86.5 kg General appearance: PRESENT: no acute distress, well-developed, well-nourished Head exam: PRESENT: atraumatic, normocephalic Eye exam: PRESENT: conjunctiva pink, EOMI, PERRLA. ABSENT: scleral icterus Ear exam: PRESENT: normal external ear exam Mouth exam: PRESENT: moist, tongue midline Neck exam: PRESENT: full ROM. ABSENT: carotid bruit, JVD, lymphadenopathy, thyromegaly Respiratory exam: PRESENT: clear to auscultation janelle Cardiovascular exam: PRESENT: RRR. ABSENT: diastolic murmur, rubs, systolic murmur Pulses: PRESENT: normal dorsalis pedis pul, +2 pedal pulses bilateral Vascular exam: PRESENT: normal capillary refill GI/Abdominal exam: PRESENT: normal bowel sounds, soft. ABSENT: distended, guarding, mass, organolmegaly, rebound, tenderness Rectal exam: PRESENT: deferred Extremities exam: ABSENT: pedal edema Additional comments: Left-sided dressing is intact on the upper thigh Musculoskeletal exam: PRESENT: ambulatory Neurological exam: PRESENT: alert, awake, oriented to person, oriented to place , oriented to time, oriented to situation, CN II-XII grossly intact. ABSENT: motor sensory deficit Psychiatric exam: PRESENT: appropriate affect, normal mood. ABSENT: homicidal ideation, suicidal ideation Skin exam: PRESENT: dry, intact, warm. ABSENT: cyanosis, rash Results Laboratory Results: 11/23/17 06:00 11/23/17 06:00 11/23/17 11/23/17 06:00 06:00 WBC 10.5 RBC 3.31 L Hgb 9.7 L Hct 28.4 L MCV 86 MCH 29.3 MCHC 34.1 RDW 14.8 H Plt Count 269 Seg Neutrophils % 79.7 H Lymphocytes % 7.7 L Monocytes % 10.3 Eosinophils % 1.9 Basophils % 0.4 Absolute Neutrophils 8.4 H Absolute Lymphocytes 0.8 Absolute Monocytes 1.1 Absolute Eosinophils 0.2 Absolute Basophils 0.0 Sodium 136.0 L Potassium 3.8 Chloride 101 Carbon Dioxide 27 Anion Gap 8 BUN 41 H Creatinine 2.31 H Est GFR ( Amer) 34 L Est GFR (Non-Af Amer) 28 L Glucose 133 H Calcium 9.2 11/17/17 11:15 Blood Blood Culture - Final NO GROWTH IN 5 DAYS 11/17/17 11:00 Blood Blood Culture - Final NO GROWTH IN 5 DAYS 11/17/17 11/17/17 11/18/17 06:41 11:00 04:42 Troponin I 0.212 0.253 0.126 11/19/17 06:45 Troponin I 0.074 Impressions: Fluoroscopy 11/16/17 00:00 IMPRESSION: ORIF left femur fracture. Refer to operative note for further information. Femur X-Ray 11/16/17 05:50 IMPRESSION: Fracture of the left femoral shaft. Pelvis X-Ray 11/16/17 05:50 IMPRESSION: No acute fracture or dislocation of the bony pelvis. Chest X-Ray 11/18/17 18:19 IMPRESSION: Interval placement of a right subclavian triple lumen catheter with tip in the superior vena cava. No pneumothorax. Assessment & Plan - Diagnosis (1) Left femoral shaft fracture Qualifiers: Encounter type: initial encounter Fracture type: closed Fracture morphology: spiral Fracture alignment: displaced Qualified Code(s): S72.342A - Displaced spiral fracture of shaft of left femur, initial encounter for closed fracture Is this a current diagnosis for this admission?: Yes Plan: s/p surgery (2) Hypertension Qualifiers: Hypertension type: essential hypertension Qualified Code(s): I10 - Essential (primary) hypertension Is this a current diagnosis for this admission?: Yes (3) CAD (coronary artery disease) Qualifiers: Coronary Disease-Associated Artery/Lesion type: unspecified vessel or lesion type [place] vs. transplanted heart: [place] heart Associated angina: without angina Qualified Code(s): I25.10 - Atherosclerotic heart disease of [place] coronary artery without angina pectoris Is this a current diagnosis for this admission?: Yes (4) Prostate CA Is this a current diagnosis for this admission?: Yes (5) Diabetes mellitus Qualifiers: Diabetes mellitus type: type 2 Diabetes mellitus complication detail: with chronic kidney disease Chronic kidney disease stage: stage 3 (moderate) Is this a current diagnosis for this admission?: Yes Plan: all stble (6) Frequent falls Is this a current diagnosis for this admission?: Yes Plan: need pt and rehab (7) Non-ST elevated myocardial infarction Is this a current diagnosis for this admission?: Yes Plan: f/u with cardiology (8) Anemia Qualifiers: Anemia type: unspecified type Qualified Code(s): D64.9 - Anemia, unspecified Is this a current diagnosis for this admission?: Yes (9) Cerebrovascular accident Qualifiers: Laterality of affected vessel: unspecified Is this a current diagnosis for this admission?: No (10) Chronic kidney disease Qualifiers: Chronic kidney disease stage: stage 3 (moderate) Qualified Code(s): N18.3 - Chronic kidney disease, stage 3 (moderate) Is this a current diagnosis for this admission?: Yes Plan: Currently mild acute insufficiency we will give IV hydrations - Time Time Spent with patient: 15-24 minutes Medications reviewed and adjusted accordingly: Yes Anticipated discharge: SNF Within: within 24 hours - Inpatient Certification Medical Necessity: Need Close Monitoring Due to Risk of Patient Decompensation, Need For IV Fluids Post Hospital Care: D/C Personal Lines Account Manager Documentation - Plan Summary Plan Summary: Will continues to IV fluid stop the IV antibiotic
[2017-11-23] MEDS: INSULIN LISPRO 100 UNIT/ML 3 ML VIAL SUBCUT PRN ×2 (13:12→17:23)
[2017-11-23] MEDS: RIVAROXABAN 10 MG TABLET PO SCH (22:22)
[2017-11-24] MEDS: 1/2 NORMAL SALINE 1,000 ML IV PRN ×2 (03:09→20:39)
[2017-11-24] MEDS: NITROGLYCERIN 2% OINTMENT 1 GM PACKET TP SCH ×4 (03:14→20:38)
[2017-11-24 06:15] LABS: ABSOLUTE EOSINOPHILS # (AUTO) 0.2 10^3/uL (0.0-0.6); BASOPHILS % (AUTO) 0.4 % (0-2); EOSINOPHILS % (AUTO) 2.1 % (0-6); HEMATOCRIT 26.2 % (37.9-51.0); HEMOGLOBIN 9.1 g/dL (13.5-17.0); LYMPHOCYTES % (AUTO) 10.1 % (13-45); MEAN CORPUSCULAR HEMOGLOBIN 29.9 pg (27.0-33.4); MEAN CORPUSCULAR HGB CONC 34.6 g/dL (32.0-36.0); MEAN CORPUSCULAR VOLUME 86 fl (80-97); MONOCYTES % (AUTO) 9.9 % (3-13); PLATELET COUNT 288 10^3/uL (150-450); RED BLOOD COUNT 3.03 10^6/uL (4.35-5.55); RED CELL DISTRIBUTION WIDTH 14.8 % (11.5-14.0); SEGMENTED NEUTROPHILS % (AUTO) 77.5 % (42-78); TOTAL CELLS COUNTED % (AUTO) 100 %; WHITE BLOOD COUNT 10.3 10^3/uL (4.0-10.5)
[2017-11-24 06:35] LABS: ANION GAP 9 (5-19); BLOOD UREA NITROGEN 46 mg/dL (7-20); CALCIUM 8.9 mg/dL (8.4-10.2); CARBON DIOXIDE 24 mmol/L (22-30); CHLORIDE 100 mmol/L (98-107); GLUCOSE 135 mg/dL (75-110); POTASSIUM 3.7 mmol/L (3.6-5.0); SODIUM 132.8 mmol/L (137-145)
--- NOTE | 2017-11-24 08:34 | PDOC PROGRESS REPORT ---
Subjective Progress Note for:: 11/24/17 Subjective:: Patient is currently doing fair Patient's denied any chest pain denied any shortness of the breath Per physical therapy patient is still little bit unstable to walk Patients that have been positive for the bowel movement Reason For Visit: STATUS POST NAILING OF LEFT FEMORAL SHAFT FRACTURE Physical Exam Vital Signs: Temp Pulse Resp BP Pulse Ox 97.8 F 61 21 H 149/50 H 97 11/23/17 23:46 11/24/17 07:00 11/23/17 23:46 11/23/17 23:46 11/23/17 23:46 Intake & Output 11/23/17 11/24/17 11/25/17 06:59 06:59 06:59 Intake Total 1594 1811 Balance 1594 1811 Weight 86.5 kg 87.5 kg General appearance: PRESENT: no acute distress, well-developed, well-nourished Head exam: PRESENT: atraumatic, normocephalic Eye exam: PRESENT: conjunctiva pink, EOMI, PERRLA. ABSENT: scleral icterus Ear exam: PRESENT: normal external ear exam Mouth exam: PRESENT: moist, tongue midline Neck exam: PRESENT: full ROM. ABSENT: carotid bruit, JVD, lymphadenopathy, thyromegaly Respiratory exam: PRESENT: clear to auscultation janelle Cardiovascular exam: PRESENT: RRR. ABSENT: diastolic murmur, rubs, systolic murmur Pulses: PRESENT: normal dorsalis pedis pul, +2 pedal pulses bilateral Vascular exam: PRESENT: normal capillary refill GI/Abdominal exam: PRESENT: normal bowel sounds, soft. ABSENT: distended, guarding, mass, organolmegaly, rebound, tenderness Rectal exam: PRESENT: deferred Extremities exam: ABSENT: pedal edema Additional comments: On the left side at the dressing is intact on the leg Neurological exam: PRESENT: alert, awake, oriented to person, oriented to place , oriented to time, oriented to situation. ABSENT: motor sensory deficit Psychiatric exam: PRESENT: appropriate affect, normal mood. ABSENT: homicidal ideation, suicidal ideation Skin exam: PRESENT: dry, intact, warm. ABSENT: cyanosis, rash Results Laboratory Results: 11/24/17 05:45 11/24/17 05:45 11/24/17 11/24/17 05:45 05:45 WBC 10.3 RBC 3.03 L Hgb 9.1 L Hct 26.2 L MCV 86 MCH 29.9 MCHC 34.6 RDW 14.8 H Plt Count 288 Seg Neutrophils % 77.5 Lymphocytes % 10.1 L Monocytes % 9.9 Eosinophils % 2.1 Basophils % 0.4 Absolute Neutrophils 8.0 Absolute Lymphocytes 1.0 Absolute Monocytes 1.0 Absolute Eosinophils 0.2 Absolute Basophils 0.0 Sodium 132.8 L Potassium 3.7 Chloride 100 Carbon Dioxide 24 Anion Gap 9 BUN 46 H Creatinine 2.53 H Est GFR ( Amer) 31 L Est GFR (Non-Af Amer) 25 L Glucose 135 H Calcium 8.9 11/17/17 11/17/17 11/18/17 06:41 11:00 04:42 Troponin I 0.212 0.253 0.126 11/19/17 06:45 Troponin I 0.074 Impressions: Fluoroscopy 11/16/17 00:00 IMPRESSION: ORIF left femur fracture. Refer to operative note for further information. Femur X-Ray 11/16/17 05:50 IMPRESSION: Fracture of the left femoral shaft. Pelvis X-Ray 11/16/17 05:50 IMPRESSION: No acute fracture or dislocation of the bony pelvis. Chest X-Ray 11/18/17 18:19 IMPRESSION: Interval placement of a right subclavian triple lumen catheter with tip in the superior vena cava. No pneumothorax. Assessment & Plan - Diagnosis (1) Left femoral shaft fracture Qualifiers: Encounter type: initial encounter Fracture type: closed Fracture morphology: spiral Fracture alignment: displaced Qualified Code(s): S72.342A - Displaced spiral fracture of shaft of left femur, initial encounter for closed fracture Is this a current diagnosis for this admission?: Yes Plan: Patients need a physical therapy currently follow with the orthopedic surgery (2) Hypertension Qualifiers: Hypertension type: essential hypertension Qualified Code(s): I10 - Essential (primary) hypertension Is this a current diagnosis for this admission?: Yes Plan: Currently all stable (3) CAD (coronary artery disease) Qualifiers: Coronary Disease-Associated Artery/Lesion type: unspecified vessel or lesion type [place] vs. transplanted heart: [place] heart Associated angina: without angina Qualified Code(s): I25.10 - Atherosclerotic heart disease of [place] coronary artery without angina pectoris Is this a current diagnosis for this admission?: Yes Plan: Currently all stable (4) Prostate CA Is this a current diagnosis for this admission?: Yes Plan: Patients follow outpatients a doctor vadim (5) Diabetes mellitus Qualifiers: Diabetes mellitus type: type 2 Diabetes mellitus complication detail: with chronic kidney disease Chronic kidney disease stage: stage 3 (moderate) Is this a current diagnosis for this admission?: Yes Plan: all stble (6) Frequent falls Is this a current diagnosis for this admission?: Yes Plan: need pt and rehab (7) Non-ST elevated myocardial infarction Is this a current diagnosis for this admission?: Yes Plan: f/u with cardiology (8) Anemia Qualifiers: Anemia type: unspecified type Qualified Code(s): D64.9 - Anemia, unspecified Is this a current diagnosis for this admission?: Yes (9) Cerebrovascular accident Qualifiers: Laterality of affected vessel: unspecified Is this a current diagnosis for this admission?: No (10) Chronic kidney disease Qualifiers: Chronic kidney disease stage: stage 3 (moderate) Qualified Code(s): N18.3 - Chronic kidney disease, stage 3 (moderate) Is this a current diagnosis for this admission?: Yes Plan: Continuous IV fluid repeat the basic metabolic panel in the morning - Time Time Spent with patient: 15-24 minutes Medications reviewed and adjusted accordingly: Yes Anticipated discharge: SNF Within: within 24 hours - Inpatient Certification Medical Necessity: Need Close Monitoring Due to Risk of Patient Decompensation, Need For IV Fluids Post Hospital Care: D/C Call Out Operator Documentation - Plan Summary Plan Summary: Continues to current medication
[2017-11-24] MEDS: POLYETHYLENE GLYCOL 3350 POWDER 17 GM/1 PACKET PO SCH (09:06)
[2017-11-24] MEDS: DOCUSATE SODIUM 100 MG CAPSULE PO SCH ×2 (09:06→17:23)
[2017-11-24] MEDS: FAMOTIDINE INJ/PF 20 MG/2 ML SDV IV SCH ×2 (09:16→21:12)
[2017-11-24] MEDS: FERROUS SULFATE LIQUID 300 MG/5 ML UDC PO SCH ×2 (09:16→17:23)
[2017-11-24] MEDS: METOPROLOL SUCCINATE 25 MG TAB.SR.24H PO SCH ×2 (09:17→21:13)
[2017-11-24] MEDS: SITAGLIPTIN PHOSPHATE 50 MG TABLET PO SCH (09:17)
[2017-11-24] MEDS: THIAMINE HCL 100 MG TABLET PO SCH (09:17)
[2017-11-24] MEDS: AMLODIPINE BESYLATE 2.5 MG TABLET PO SCH ×2 (09:17→21:13)
[2017-11-24] MEDS: INSULIN LISPRO 100 UNIT/ML 3 ML VIAL SUBCUT PRN ×2 (14:01→17:23)
[2017-11-24] MEDS: RIVAROXABAN 10 MG TABLET PO SCH (21:13)
[2017-11-25] MEDS: NITROGLYCERIN 2% OINTMENT 1 GM PACKET TP SCH ×4 (02:45→21:17)
[2017-11-25 08:27] LABS: ANION GAP 10 (5-19); BLOOD UREA NITROGEN 39 mg/dL (7-20); CALCIUM 9.3 mg/dL (8.4-10.2); CARBON DIOXIDE 23 mmol/L (22-30); CHLORIDE 101 mmol/L (98-107); GLUCOSE 111 mg/dL (75-110); POTASSIUM 3.6 mmol/L (3.6-5.0)
--- NOTE | 2017-11-25 09:34 | PDOC CONSULTATION ---
Consultation Consult Date: 11/25/17 Attending physician:: ESVIN VIVAR Consult reason:: Stage IV prostate cancer, status post fall and fracture History of Present Illness Admission Date/PCP: 11/16/17 07:24 ESVIN VIVAR MD Patient complains of: Recent frequent falls, recent left femur fracture, stage IV prostate cancer History of Present Illness: SHABNAM BEE is a 67 year old male with known history of stage IV prostate cancer, we have recently been treating him with androgen deprivation therapy with both Lupron and Casodex, last Lupron shot was just about 3 weeks ago. He has excellent control of disease and his last PSA was still undetectable. Unfortunately though, he has been having frequent falls over the last 3 months. He has had previous extensive workup through his PCP, who has decreased his blood pressure medications, look for any medications causing confusion, look for other causes of falls, he did have an MRI of the brain done 09/30/2017 which indicated extensive infarcts in the brain that were different than previously noted in 2013 when he was admitted with extensive post stroke admission. He had a fall to the left side and sustained a left femur fracture status post femur repair. He is being planned for rehab placement. Past Medical History Cardiac Medical History: Reports: Coronary Artery Disease - Stents, Myocardial Infarction, Hypertension Pulmonary Medical History: Denies: Asthma, Bronchitis, Chronic Obstructive Pulmonary Disease (COPD), Pneumonia Neurological Medical History: Denies: Seizures Endocrine Medical History: Reports: Diabetes Mellitus Type 2 - Not on insulin. Malignancy Medical History: Reports: Colorectal Cancer, Other - Stage IV prostate cancer, biochemical relapse only thus far Musculoskeltal Medical History: Denies: Arthritis, Gout Psychiatric Medical History: Denies: Depression Hematology: Denies: Anemia Past Surgical History Past Surgical History: Reports: Coronary Artery Bypass Graft, Other - Colon cancer Social History Information Source: Patient Lives with: Family Smoking Status: Unknown if Ever Smoked Frequency of Alcohol Use: Occasional Hx Recreational Drug Use: No Drugs: None Hx Prescription Drug Abuse: No - Advance Directive Resuscitation Status: Full Code Family History Family History: Reviewed & Not Pertinent Parental Family History Reviewed: Yes Children Family History Reviewed: Yes Sibling(s) Family History Reviewed.: Yes Medication/Allergy Home Medications: Amlodipine Besylate [Norvasc 2.5 mg Tablet] 2.5 mg PO PRN PRN 11/16/17 Bicalutamide [Casodex 50 mg Tablet] 50 mg PO DAILY 11/16/17 Cholecalciferol (Vitamin D3) [Vitamin D3] 1,000 unit PO DAILY 11/16/17 Glipizide [Glipizide ER] 2.5 mg PO DAILY 11/16/17 Linagliptin [Tradjenta] 5 mg PO DAILY 11/16/17 Thiamine HCl [Vitamin B-1] 100 mg PO DAILY 11/16/17 Allergies/Adverse Reactions: No Known Allergies Allergy (Verified 11/16/17 06:02) Review of Systems Constitutional: ABSENT: chills, fever(s), headache(s), weight gain, weight loss Eyes: ABSENT: visual disturbances Ears: ABSENT: hearing changes Cardiovascular: ABSENT: chest pain, dyspnea on exertion, edema, orthropnea, palpitations Respiratory: ABSENT: cough, hemoptysis Gastrointestinal: ABSENT: abdominal pain, constipation, diarrhea, hematemesis, hematochezia, nausea, vomiting Genitourinary: ABSENT: dysuria, hematuria Musculoskeletal: ABSENT: joint swelling Integumentary: ABSENT: rash, wounds Neurological: ABSENT: abnormal gait, abnormal speech, confusion, dizziness, focal weakness, syncope Psychiatric: ABSENT: anxiety, depression, homidical ideation, suicidal ideation Endocrine: ABSENT: cold intolerance, heat intolerance, polydipsia, polyuria Hematologic/Lymphatic: ABSENT: easy bleeding, easy bruising Physical Exam Vital Signs: Temp Pulse Resp BP Pulse Ox 97.7 F 63 16 138/85 H 100 11/25/17 07:37 11/25/17 07:37 11/25/17 07:37 11/25/17 07:37 11/25/17 07:37 Intake & Output 11/24/17 11/25/17 11/26/17 06:59 06:59 06:59 Intake Total 1811 1555 Balance 1811 1555 Weight 87.5 kg 88.6 kg General appearance: PRESENT: no acute distress, well-developed, well-nourished Head exam: PRESENT: atraumatic, normocephalic Eye exam: PRESENT: conjunctiva pink, EOMI, PERRLA. ABSENT: scleral icterus Ear exam: PRESENT: normal external ear exam Mouth exam: PRESENT: moist, tongue midline Neck exam: ABSENT: carotid bruit, JVD, lymphadenopathy, thyromegaly Respiratory exam: PRESENT: clear to auscultation janelle. ABSENT: rales, rhonchi, wheezes Cardiovascular exam: PRESENT: RRR. ABSENT: diastolic murmur, rubs, systolic murmur Pulses: PRESENT: normal dorsalis pedis pul Vascular exam: PRESENT: normal capillary refill GI/Abdominal exam: PRESENT: normal bowel sounds, soft. ABSENT: distended, guarding, mass, organolmegaly, rebound, tenderness Rectal exam: PRESENT: deferred Extremities exam: PRESENT: full ROM. ABSENT: calf tenderness, clubbing, pedal edema Neurological exam: PRESENT: alert, awake, oriented to person, oriented to place , oriented to time, oriented to situation, CN II-XII grossly intact. ABSENT: motor sensory deficit Psychiatric exam: PRESENT: appropriate affect, normal mood. ABSENT: homicidal ideation, suicidal ideation Skin exam: PRESENT: dry, intact, warm. ABSENT: cyanosis, rash Results Laboratory Results: 11/24/17 05:45 11/25/17 07:46 11/25/17 07:46 Sodium 134.0 L Potassium 3.6 Chloride 101 Carbon Dioxide 23 Anion Gap 10 BUN 39 H Creatinine 2.13 H Est GFR ( Amer) 38 L Est GFR (Non-Af Amer) 31 L Glucose 111 H Calcium 9.3 11/17/17 11/17/17 11/18/17 06:41 11:00 04:42 Troponin I 0.212 0.253 0.126 11/19/17 06:45 Troponin I 0.074 Impressions: Fluoroscopy 11/16/17 00:00 IMPRESSION: ORIF left femur fracture. Refer to operative note for further information. Femur X-Ray 11/16/17 05:50 IMPRESSION: Fracture of the left femoral shaft. Pelvis X-Ray 11/16/17 05:50 IMPRESSION: No acute fracture or dislocation of the bony pelvis. Chest X-Ray 11/18/17 18:19 IMPRESSION: Interval placement of a right subclavian triple lumen catheter with tip in the superior vena cava. No pneumothorax. Status: Image reviewed by me Assessment & Plan - Diagnosis (1) Prostate CA Is this a current diagnosis for this admission?: Yes Plan: Patient with stage IV prostate cancer, his next shot would be due in about 2 months time, it is unlikely that his falls are directly due to the prostate cancer but we would want to repeat the MRI of the brain to ensure this is not the case. It is much more likely related to his vascular dementia, and microvascular macular vascular changes in the brain. We would like to confirm this with MRI however. We will follow-up the results tomorrow and see him as an outpatient once discharged from rehabilitation. - Time Time Spent: Greater than 70 Minutes - Inpatient Certification Based on my medical assessment, after consideration of the patient's comorbidities, presenting symptoms, or acuity I expect that the services needed warrant INPATIENT care.: Yes I certify that my determination is in accordance with my understanding of Medicare's requirements for reasonable and necessary INPATIENT services [42 CFR 412.3e].: Yes Medical Necessity: Risk of Complication if Not Cared For in Hospital
--- NOTE | 2017-11-25 11:12 | RADIOLOGY REPORT (SQ) ---
EXAM DESCRIPTION: MRI HEAD WITHOUT COMPLETED DATE/TIME: 11/25/2017 10:58 am REASON FOR STUDY: dizziness COMPARISON: 09/30/2017. TECHNIQUE: Multiplanar imaging includes non-contrasted T1, T2, FLAIR, and diffusion with ADC map seq uences. Images stored on PACS. LIMITATIONS: None. FINDINGS: ANATOMY: No anomalies. Normal vascular flow voids. Pituitary fossa normal. CSF SPACES: Atrophy induced prominence of ventricles and CSF spaces. CEREBRUM: High signal intensity lesions scattered throughout the white matter on FLAIR imaging with d istribution suggesting micro-vascular ischemic changes. Old infarct in the left upper lobe. No evid ence of hemorrhage, mass, or extraaxial fluid collection. POSTERIOR FOSSA: Old infarct in the left cerebellar hemisphere. No hemorrhage. No edema, masses or ma ss effect. Internal auditory canals, cerebello-pontine angles, mastoids normal. DIFFUSION IMAGING: Negative for acute or sub-acute infarction. ORBITS: No masses. Globes normal. PARANASAL SINUSES: No fluid levels. Mucosa normal. OTHER: No other significant finding. IMPRESSION: OLD INFARCTS IN THE LEFT TEMPORAL LOBE AND LEFT CEREBELLAR HEMISPHERE. 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 NO ACUTE FINDINGS. EVIDENCE OF ACUTE STROKE: NO. TECHNICAL DOCUMENTATION: JOB ID: [id number] [employer]- All Rights Reserved Reading location - IP/workstation name: [email or web address]
[2017-11-25] MEDS: FERROUS SULFATE LIQUID 300 MG/5 ML UDC PO SCH ×2 (11:15→17:28)
[2017-11-25] MEDS: THIAMINE HCL 100 MG TABLET PO SCH (11:16)
[2017-11-25] MEDS: FAMOTIDINE INJ/PF 20 MG/2 ML SDV IV SCH ×2 (11:16→21:17)
[2017-11-25] MEDS: SITAGLIPTIN PHOSPHATE 50 MG TABLET PO SCH (11:16)
[2017-11-25] MEDS: AMLODIPINE BESYLATE 2.5 MG TABLET PO SCH (11:16)
[2017-11-25] MEDS: POLYETHYLENE GLYCOL 3350 POWDER 17 GM/1 PACKET PO SCH (11:16)
[2017-11-25] MEDS: METOPROLOL SUCCINATE 25 MG TAB.SR.24H PO SCH ×2 (11:16→21:16)
[2017-11-25] MEDS: DOCUSATE SODIUM 100 MG CAPSULE PO SCH ×2 (11:16→17:28)
--- NOTE | 2017-11-25 11:21 | RADIOLOGY REPORT (SQ) ---
EXAM DESCRIPTION: U/S RETROPERITON (RENAL/AORTA) COMPLETED DATE/TIME: 11/25/2017 10:49 am REASON FOR STUDY: renal failure COMPARISON: 03/03/2016. TECHNIQUE: Dynamic and static grayscale images acquired of the kidneys and bladder and recorded on P ACS. Additional selected color Doppler and spectral images recorded. LIMITATIONS: None. FINDINGS: RIGHT KIDNEY: Normal size. Normal echogenicity. No solid or suspicious masses. No hydronep hrosis. No calcifications. LEFT KIDNEY: Normal size. Normal echogenicity. No solid or suspicious masses. No hydronephrosis. No calcifications. BLADDER: No masses. OTHER FINDINGS: No other significant finding. IMPRESSION: NORMAL RENAL AND BLADDER ULTRASOUND. TECHNICAL DOCUMENTATION: JOB ID: [id number] [employer]- All Rights Reserved Reading location - IP/workstation name: [email or web address]
--- NOTE | 2017-11-25 11:24 | PDOC TRANSFER SUMMARY ---
General - Admit/Disc Date/PCP Admission Date/Primary Care Provider: 11/16/17 07:24 ESVIN VIVAR MD Discharge Date: 11/25/17 - Discharge Diagnosis (1) Left femoral shaft fracture Is this a current diagnosis for this admission?: Yes Summary: Status post surgery currently follow with the orthopedic surgeryAs outpatient in 1 week (2) Hypertension Is this a current diagnosis for this admission?: Yes Summary: Currently continues to beta-shaggy and Norvasc At just the medications but her blood pressures keep her blood pressure is 150 range (3) CAD (coronary artery disease) Is this a current diagnosis for this admission?: Yes Summary: Follow with the Dr. Bland as outpatients make appointment to see him (4) Prostate CA Is this a current diagnosis for this admission?: Yes Summary: Currently follow with the doctor vadim (5) Diabetes mellitus Is this a current diagnosis for this admission?: Yes Summary: Continues to current medication and sliding scale (6) Frequent falls Is this a current diagnosis for this admission?: Yes Summary: Patients definitely need physical therapy and fall precautions Use a wheelchair and walker and follow with the PT for further recommendations (7) Non-ST elevated myocardial infarction Is this a current diagnosis for this admission?: Yes Summary: Continues to aspirin and continues to current medication follow with the Dr. Bland (8) Anemia Is this a current diagnosis for this admission?: Yes Summary: Continues on iron tablets (9) Cerebrovascular accident Is this a current diagnosis for this admission?: No Summary: Currently all stable (10) Chronic kidney disease Is this a current diagnosis for this admission?: Yes Summary: Follow outpatients Dr. Turner Repeat the Chem-7 in 1 week - Additional Information Resuscitation Status: Full Code Discharge Diet: Cardiac, Diabetic Prescriptions: Amlodipine Besylate [Norvasc 2.5 mg Tablet] 2.5 mg PO Q12 #60 tablet Aspirin [Ecotrin 81 mg EC Tablet] 81 mg PO DAILY #30 tabec Ferrous Sulfate [Ferrous Sulfate Liquid 300 mg/5 ml Udcup] 300 mg PO BID #60 udc Insulin Lispro [Humalog Insulin (Lispro) 100 unit/mL] 0 - 12 unit SUBCUT AC #1 unit Metoprolol Succinate [Toprol Xl 25 mg Tab.sr] 25 mg PO Q12 #60 tab.sr.24h Nitroglycerin [Nitrol 2% Ointment 1Gm Packet] 0.5 gm TP Q6A #30 oint..gm. Polyethylene Glycol 3350 [Miralax Powder 17 gm/Packet] 17 gm PO DAILY #30 powd.pack Rivaroxaban [Xarelto 10 mg Tablet] 10 mg PO QHS #14 tablet Home Medications: Amlodipine Besylate [Norvasc 2.5 mg Tablet] 2.5 mg PO PRN PRN 11/16/17 Cholecalciferol (Vitamin D3) [Vitamin D3] 1,000 unit PO DAILY 11/16/17 Linagliptin [Tradjenta] 5 mg PO DAILY 11/16/17 Thiamine HCl [Vitamin B-1] 100 mg PO DAILY 11/16/17 Amlodipine Besylate [Norvasc 2.5 mg Tablet] 2.5 mg PO Q12 #60 tablet 11/25/17 Aspirin [Ecotrin 81 mg EC Tablet] 81 mg PO DAILY #30 tabec 11/25/17 Ferrous Sulfate [Ferrous Sulfate Liquid 300 mg/5 ml Udcup] 300 mg PO BID #60 udc 11/25/17 Insulin Lispro [Humalog Insulin (Lispro) 100 unit/mL] 0 - 12 unit SUBCUT AC #1 unit 11/25/17 Metoprolol Succinate [Toprol Xl 25 mg Tab.sr] 25 mg PO Q12 #60 tab.sr.24h Nitroglycerin [Nitrol 2% Ointment 1Gm Packet] 0.5 gm TP Q6A #30 oint..gm. Polyethylene Glycol 3350 [Miralax Powder 17 gm/Packet] 17 gm PO DAILY #30 powd.pack 11/25/17 Rivaroxaban [Xarelto 10 mg Tablet] 10 mg PO QHS #14 tablet 11/25/17 History of Present Illness Admission Date/PCP: 11/16/17 07:24 ESVIN VIVAR MD History of Present Illness: SHABNAM BEE is a 67 year old male There is a 67-year-old male with a significant history of the stage IV prostate cancers history of the hypertensions history of the strokes and the diabetes with the multiple medical issues with ongoing problem with the dizziness and not feeling well came to the emergency department with the fall and the left femur fractures Patient's underwent for the surgery for the femur fracture for the Dr. Chopra Patient's otherwise remained stable And also have a non-ST NC treated with the medical management per Dr. Bland Patient also have a chronic kidney disease currently followed with the Dr. Turner Patient was stage IV prostate cancers currently see a doctor fierro Patient's otherwise remained stable Very extensive discussed with the son regarding the patient's current conditions with the multiple comorbidityWith the patient's unstable gait patient at this Point patient is discharged to the rehab facility for further evaluations Patient need to fall precautions Patient's need to follow outpatient orthopedic surgeryAnd follow Dr. Bland as outpatient continues follow oncology Hospital Course Hospital Course: There is a 67-year-old male with a significant history of the stage IV prostate cancers history of the hypertensions history of the strokes and the diabetes with the multiple medical issues with ongoing problem with the dizziness and not feeling well came to the emergency department with the fall and the left femur fractures Patient's underwent for the surgery for the femur fracture for the Dr. Chopra Patient's otherwise remained stable And also have a non-ST NC treated with the medical management per Dr. Bland Patient also have a chronic kidney disease currently followed with the Dr. Turner Patient was stage IV prostate cancers currently see a doctor fierro Patient's otherwise remained stable Very extensive discussed with the son regarding the patient's current conditions with the multiple comorbidityWith the patient's unstable gait patient at this Point patient is discharged to the rehab facility for further evaluations Patient need to fall precautions Patient's need to follow outpatient orthopedic surgeryAnd follow Dr. Bland as outpatient continues follow oncology Patient had MRI is no acute finding Patient seen by the oncology Physical Exam Vital Signs: Temp Pulse Resp BP Pulse Ox 97.7 F 63 16 138/85 H 100 11/25/17 07:37 11/25/17 07:37 11/25/17 07:37 11/25/17 07:37 11/25/17 07:37 Intake & Output 11/24/17 11/25/17 11/26/17 06:59 06:59 06:59 Intake Total 1811 1555 Balance 1811 1555 Weight 87.5 kg 88.6 kg General appearance: PRESENT: no acute distress, well-developed, well-nourished Head exam: PRESENT: atraumatic, normocephalic Eye exam: PRESENT: conjunctiva pink, EOMI, PERRLA. ABSENT: scleral icterus Ear exam: PRESENT: normal external ear exam Mouth exam: PRESENT: moist, tongue midline Neck exam: ABSENT: carotid bruit, JVD, lymphadenopathy, thyromegaly Respiratory exam: PRESENT: clear to auscultation janelle. ABSENT: rales, rhonchi, wheezes Cardiovascular exam: PRESENT: RRR. ABSENT: diastolic murmur, rubs, systolic murmur Pulses: PRESENT: normal dorsalis pedis pul Vascular exam: PRESENT: normal capillary refill GI/Abdominal exam: PRESENT: normal bowel sounds, soft. ABSENT: distended, guarding, mass, organolmegaly, rebound, tenderness Rectal exam: PRESENT: deferred Extremities exam: PRESENT: full ROM. ABSENT: calf tenderness, clubbing, pedal edema Neurological exam: PRESENT: alert, awake, oriented to person, oriented to place , oriented to time, oriented to situation. ABSENT: motor sensory deficit Psychiatric exam: PRESENT: appropriate affect, normal mood. ABSENT: homicidal ideation, suicidal ideation Skin exam: PRESENT: dry, intact, warm. ABSENT: cyanosis, rash Additional comments: Left femur the dressing is intact Results Laboratory Results: 11/24/17 05:45 11/25/17 07:46 11/25/17 07:46 Sodium 134.0 L Potassium 3.6 Chloride 101 Carbon Dioxide 23 Anion Gap 10 BUN 39 H Creatinine 2.13 H Est GFR ( Amer) 38 L Est GFR (Non-Af Amer) 31 L Glucose 111 H Calcium 9.3 11/17/17 11/17/17 11/18/17 06:41 11:00 04:42 Troponin I 0.212 0.253 0.126 11/19/17 06:45 Troponin I 0.074 Impressions: Fluoroscopy 11/16/17 00:00 IMPRESSION: ORIF left femur fracture. Refer to operative note for further information. Femur X-Ray 11/16/17 05:50 IMPRESSION: Fracture of the left femoral shaft. Pelvis X-Ray 11/16/17 05:50 IMPRESSION: No acute fracture or dislocation of the bony pelvis. Chest X-Ray 11/18/17 18:19 IMPRESSION: Interval placement of a right subclavian triple lumen catheter with tip in the superior vena cava. No pneumothorax. Transfer Plan - Time Spent with Patient Time spent with patient: Greater than 30 Minutes Qualifiers - * PATIENT BEING DISCHARGED WITH ANY OF THE FOLLOWING DIAGNOSIS: NC VTE patient discharged on overlapping Therapy?: Yes NC Pt being discharged on Aspirin therapy?: Yes NC Pt being discharged on Statins?: Yes NC Pt discharged ACEI/ARBS?: No Reason(s) for not prescribing ACEI/ARBS:: Contraindicated Plan Time Spent: Greater than 30 Minutes - Discharge to the rehab facility Repeat the CBC and Chem-7 in 1 week Fall precaution Follow with the orthopedic surgery in 1 week and follow with the Dr. Bland Patients continues Norvasc 2.5 mg p.o. twice and metroprlol 25 mg twice a day
[2017-11-25] MEDS: HYDRALAZINE HCL INJ/PF 20 MG/1 ML SDV IV PRN (12:23)
[2017-11-25] MEDS ORDERED: AMLODIPINE BESYLATE 2.5 MG TABLET PO SCH (12:27)
[2017-11-25] MEDS ORDERED: HYDRALAZINE HCL INJ/PF 20 MG/1 ML SDV IV ONE (13:00)
[2017-11-25] MEDS: RIVAROXABAN 10 MG TABLET PO SCH (21:17)
[2017-11-25] MEDS: AMLODIPINE BESYLATE 5 MG TABLET PO SCH (21:17)
[2017-11-26] MEDS: NITROGLYCERIN 2% OINTMENT 1 GM PACKET TP SCH ×4 (04:06→21:39)
[2017-11-26 05:57] LABS: ABSOLUTE BASOPHILS # (AUTO) 0.1 10^3/uL (0.0-0.2); ABSOLUTE EOSINOPHILS # (AUTO) 0.2 10^3/uL (0.0-0.6); ABSOLUTE LYMPHOCYTES (AUTO) 0.9 10^3/uL (0.5-4.7); ABSOLUTE MONOCYTES (AUTO) 0.8 10^3/uL (0.1-1.4); ABSOLUTE NEUT (AUTO) 6.4 10^3/uL (1.7-8.2); BASOPHILS % (AUTO) 0.6 % (0-2); EOSINOPHILS % (AUTO) 2.3 % (0-6); HEMATOCRIT 26.5 % (37.9-51.0); HEMOGLOBIN 9.1 g/dL (13.5-17.0); LYMPHOCYTES % (AUTO) 10.8 % (13-45); MEAN CORPUSCULAR HEMOGLOBIN 29.4 pg (27.0-33.4); MEAN CORPUSCULAR HGB CONC 34.5 g/dL (32.0-36.0); MEAN CORPUSCULAR VOLUME 85 fl (80-97); MONOCYTES % (AUTO) 9.7 % (3-13); PLATELET COUNT 369 10^3/uL (150-450); RED CELL DISTRIBUTION WIDTH 14.4 % (11.5-14.0); SEGMENTED NEUTROPHILS % (AUTO) 76.6 % (42-78); TOTAL CELLS COUNTED % (AUTO) 100 %; WHITE BLOOD COUNT 8.4 10^3/uL (4.0-10.5)
[2017-11-26 06:21] LABS: ANION GAP 9 (5-19); BLOOD UREA NITROGEN 41 mg/dL (7-20); CALCIUM 9.3 mg/dL (8.4-10.2); CARBON DIOXIDE 25 mmol/L (22-30); CHLORIDE 101 mmol/L (98-107); GLUCOSE 119 mg/dL (75-110); POTASSIUM 3.9 mmol/L (3.6-5.0); SODIUM 134.5 mmol/L (137-145)
[2017-11-26] MEDS ORDERED: EPOETIN ALFA INJ 20000 UNIT/1 ML VIAL (RENAL) SUBCUT ONE (09:12)
--- NOTE | 2017-11-26 09:51 | PDOC PROGRESS REPORT ---
Subjective Progress Note for:: 11/26/17 Subjective:: Patient without complaints today. He is anxious for discharge. Nurses report some continued confusion. ROS: He denies pain, dyspnea, headache. Reason For Visit: STATUS POST NAILING OF LEFT FEMORAL SHAFT FRACTURE Physical Exam Vital Signs: Temp Pulse Resp BP Pulse Ox 97.8 F 60 18 148/56 H 99 11/26/17 07:40 11/26/17 07:40 11/26/17 07:40 11/26/17 07:40 11/26/17 07:40 Intake & Output 11/25/17 11/26/17 11/27/17 06:59 06:59 06:59 Intake Total 1555 1352 Balance 1555 1352 Weight 88.6 kg 89.4 kg General appearance: PRESENT: no acute distress, well-developed, well-nourished Head exam: PRESENT: normocephalic Respiratory exam: PRESENT: unlabored Extremities exam: ABSENT: pedal edema Neurological exam: PRESENT: alert, awake Psychiatric exam: PRESENT: appropriate affect Skin exam: PRESENT: normal color Results Laboratory Results: 11/26/17 05:25 11/26/17 05:25 11/26/17 11/26/17 05:25 05:25 WBC 8.4 RBC 3.10 L Hgb 9.1 L Hct 26.5 L MCV 85 MCH 29.4 MCHC 34.5 RDW 14.4 H Plt Count 369 Seg Neutrophils % 76.6 Lymphocytes % 10.8 L Monocytes % 9.7 Eosinophils % 2.3 Basophils % 0.6 Absolute Neutrophils 6.4 Absolute Lymphocytes 0.9 Absolute Monocytes 0.8 Absolute Eosinophils 0.2 Absolute Basophils 0.1 Sodium 134.5 L Potassium 3.9 Chloride 101 Carbon Dioxide 25 Anion Gap 9 BUN 41 H Creatinine 1.98 H Est GFR ( Amer) 41 L Est GFR (Non-Af Amer) 34 L Glucose 119 H Calcium 9.3 11/17/17 11/17/17 11/18/17 06:41 11:00 04:42 Troponin I 0.212 0.253 0.126 11/19/17 06:45 Troponin I 0.074 Impressions: Fluoroscopy 11/16/17 00:00 IMPRESSION: ORIF left femur fracture. Refer to operative note for further information. Femur X-Ray 11/16/17 05:50 IMPRESSION: Fracture of the left femoral shaft. Pelvis X-Ray 11/16/17 05:50 IMPRESSION: No acute fracture or dislocation of the bony pelvis. Chest X-Ray 11/18/17 18:19 IMPRESSION: Interval placement of a right subclavian triple lumen catheter with tip in the superior vena cava. No pneumothorax. Renal Ultrasound 11/24/17 00:00 IMPRESSION: NORMAL RENAL AND BLADDER ULTRASOUND. Head MRI 11/25/17 00:00 IMPRESSION: OLD INFARCTS IN THE LEFT TEMPORAL LOBE AND LEFT CEREBELLAR HEMISPHERE. ATROPHY AND CHRONIC MICRO-VASCULAR ISCHEMIC CHANGES. NO ACUTE FINDINGS. EVIDENCE OF ACUTE STROKE: NO. Assessment & Plan - Diagnosis (1) Anemia Qualifiers: Anemia type: due to chronic kidney disease Is this a current diagnosis for this admission?: Yes Plan: He is due for Procrit today. I will order. (2) Left femoral shaft fracture Qualifiers: Encounter type: initial encounter Fracture type: closed Fracture morphology: spiral Fracture alignment: displaced Qualified Code(s): S72.342A - Displaced spiral fracture of shaft of left femur, initial encounter for closed fracture Is this a current diagnosis for this admission?: Yes Plan: s/p ORIF. Pain controlled/ (3) Prostate CA Is this a current diagnosis for this admission?: Yes Plan: Currently stable on Lupron and Casodex. No active chemotherapy at this time. - Plan Summary Plan Summary: Will see him again in the office as previously scheduled. Please call if needed further.
[2017-11-26] MEDS: SITAGLIPTIN PHOSPHATE 50 MG TABLET PO SCH (09:52)
[2017-11-26] MEDS: POLYETHYLENE GLYCOL 3350 POWDER 17 GM/1 PACKET PO SCH (09:52)
[2017-11-26] MEDS: AMLODIPINE BESYLATE 5 MG TABLET PO SCH ×2 (09:52→21:40)
[2017-11-26] MEDS: FAMOTIDINE INJ/PF 20 MG/2 ML SDV IV SCH ×2 (09:52→21:39)
[2017-11-26] MEDS: DOCUSATE SODIUM 100 MG CAPSULE PO SCH ×2 (09:53→17:17)
[2017-11-26] MEDS: METOPROLOL SUCCINATE 25 MG TAB.SR.24H PO SCH ×2 (09:53→21:40)
[2017-11-26] MEDS: FERROUS SULFATE LIQUID 300 MG/5 ML UDC PO SCH ×2 (09:53→17:17)
[2017-11-26] MEDS: THIAMINE HCL 100 MG TABLET PO SCH (09:53)
[2017-11-26] MEDS ORDERED: EPOETIN ALFA INJ 20,000 UNIT/1 ML VIAL (ONCOLOGY) SUBCUT ONE (12:00)
--- NOTE | 2017-11-26 17:46 | PDOC PROGRESS REPORT ---
Subjective Progress Note for:: 11/26/17 Subjective:: Patient is seen by the bedside diagnosis reports no new clinical issue to address awaiting placement for rehabilitation he was admitted for the management of fracture of the left femur Reason For Visit: STATUS POST NAILING OF LEFT FEMORAL SHAFT FRACTURE Physical Exam Vital Signs: Temp Pulse Resp BP Pulse Ox 97.3 F 58 L 18 136/66 H 100 11/26/17 15:51 11/26/17 15:51 11/26/17 15:51 11/26/17 15:51 11/26/17 15:51 Intake & Output 11/25/17 11/26/17 11/27/17 06:59 06:59 06:59 Intake Total 1555 1352 0 Balance 1555 1352 0 Weight 88.6 kg 89.4 kg General appearance: PRESENT: no acute distress Eye exam: PRESENT: PERRLA Respiratory exam: PRESENT: clear to auscultation janelle Cardiovascular exam: PRESENT: +S1, +S2 GI/Abdominal exam: PRESENT: soft Neurological exam: PRESENT: alert Results Laboratory Results: 11/26/17 05:25 11/26/17 05:25 11/26/17 11/26/17 05:25 05:25 WBC 8.4 RBC 3.10 L Hgb 9.1 L Hct 26.5 L MCV 85 MCH 29.4 MCHC 34.5 RDW 14.4 H Plt Count 369 Seg Neutrophils % 76.6 Lymphocytes % 10.8 L Monocytes % 9.7 Eosinophils % 2.3 Basophils % 0.6 Absolute Neutrophils 6.4 Absolute Lymphocytes 0.9 Absolute Monocytes 0.8 Absolute Eosinophils 0.2 Absolute Basophils 0.1 Sodium 134.5 L Potassium 3.9 Chloride 101 Carbon Dioxide 25 Anion Gap 9 BUN 41 H Creatinine 1.98 H Est GFR ( Amer) 41 L Est GFR (Non-Af Amer) 34 L Glucose 119 H Calcium 9.3 11/17/17 11/17/17 11/18/17 06:41 11:00 04:42 Troponin I 0.212 0.253 0.126 11/19/17 06:45 Troponin I 0.074 Impressions: Fluoroscopy 11/16/17 00:00 IMPRESSION: ORIF left femur fracture. Refer to operative note for further information. Femur X-Ray 11/16/17 05:50 IMPRESSION: Fracture of the left femoral shaft. Pelvis X-Ray 11/16/17 05:50 IMPRESSION: No acute fracture or dislocation of the bony pelvis. Chest X-Ray 11/18/17 18:19 IMPRESSION: Interval placement of a right subclavian triple lumen catheter with tip in the superior vena cava. No pneumothorax. Renal Ultrasound 11/24/17 00:00 IMPRESSION: NORMAL RENAL AND BLADDER ULTRASOUND. Head MRI 11/25/17 00:00 IMPRESSION: OLD INFARCTS IN THE LEFT TEMPORAL LOBE AND LEFT CEREBELLAR HEMISPHERE. ATROPHY AND CHRONIC MICRO-VASCULAR ISCHEMIC CHANGES. NO ACUTE FINDINGS. EVIDENCE OF ACUTE STROKE: NO. Assessment & Plan - Diagnosis (1) Left femoral shaft fracture Qualifiers: Encounter type: initial encounter Fracture type: closed Fracture morphology: spiral Fracture alignment: displaced Qualified Code(s): S72.342A - Displaced spiral fracture of shaft of left femur, initial encounter for closed fracture Is this a current diagnosis for this admission?: Yes (2) Prostate CA Is this a current diagnosis for this admission?: Yes (3) Hypertension Qualifiers: Hypertension type: essential hypertension Qualified Code(s): I10 - Essential (primary) hypertension Is this a current diagnosis for this admission?: Yes (4) CAD (coronary artery disease) Qualifiers: Coronary Disease-Associated Artery/Lesion type: unspecified vessel or lesion type [place] vs. transplanted heart: [place] heart Associated angina: without angina Qualified Code(s): I25.10 - Atherosclerotic heart disease of [place] coronary artery without angina pectoris Is this a current diagnosis for this admission?: Yes (5) Diabetes mellitus Qualifiers: Diabetes mellitus type: type 2 Diabetes mellitus complication detail: with chronic kidney disease Chronic kidney disease stage: stage 3 (moderate) Is this a current diagnosis for this admission?: Yes (6) Frequent falls Is this a current diagnosis for this admission?: Yes (7) Non-ST elevated myocardial infarction Is this a current diagnosis for this admission?: Yes (8) Anemia Qualifiers: Anemia type: due to chronic kidney disease Is this a current diagnosis for this admission?: Yes (9) Chronic kidney disease Qualifiers: Chronic kidney disease stage: stage 3 (moderate) Qualified Code(s): N18.3 - Chronic kidney disease, stage 3 (moderate) Is this a current diagnosis for this admission?: Yes
[2017-11-26] MEDS: RIVAROXABAN 10 MG TABLET PO SCH (21:40)
[2017-11-26] MEDS: INSULIN LISPRO 100 UNIT/ML 3 ML VIAL SUBCUT PRN (21:43)
[2017-11-27] MEDS: NITROGLYCERIN 2% OINTMENT 1 GM PACKET TP SCH ×4 (03:57→22:41)
[2017-11-27 06:17] LABS: ANION GAP 6 (5-19); BLOOD UREA NITROGEN 46 mg/dL (7-20); CALCIUM 9.1 mg/dL (8.4-10.2); CARBON DIOXIDE 26 mmol/L (22-30); CHLORIDE 103 mmol/L (98-107); GLUCOSE 114 mg/dL (75-110); POTASSIUM 3.8 mmol/L (3.6-5.0); SODIUM 134.9 mmol/L (137-145)
[2017-11-27] MEDS: POLYETHYLENE GLYCOL 3350 POWDER 17 GM/1 PACKET PO SCH (09:12)
[2017-11-27] MEDS: AMLODIPINE BESYLATE 5 MG TABLET PO SCH ×2 (09:12→22:41)
[2017-11-27] MEDS: METOPROLOL SUCCINATE 25 MG TAB.SR.24H PO SCH ×2 (09:12→22:42)
[2017-11-27] MEDS: SITAGLIPTIN PHOSPHATE 50 MG TABLET PO SCH (09:12)
[2017-11-27] MEDS: DOCUSATE SODIUM 100 MG CAPSULE PO SCH ×2 (09:12→17:29)
[2017-11-27] MEDS: FERROUS SULFATE LIQUID 300 MG/5 ML UDC PO SCH ×2 (09:12→17:29)
[2017-11-27] MEDS: THIAMINE HCL 100 MG TABLET PO SCH (09:12)
[2017-11-27] MEDS: FAMOTIDINE INJ/PF 20 MG/2 ML SDV IV SCH ×2 (09:12→22:41)
[2017-11-27] MEDS: INSULIN LISPRO 100 UNIT/ML 3 ML VIAL SUBCUT PRN ×2 (17:29→22:52)
--- NOTE | 2017-11-27 19:02 | PDOC PROGRESS REPORT ---
Subjective Progress Note for:: 11/27/17 Subjective:: Patient is seen by the bedside diagnosis reports no new clinical issue to address awaiting placement for rehabilitation he was admitted for the management of fracture of the left femur Reason For Visit: STATUS POST NAILING OF LEFT FEMORAL SHAFT FRACTURE Physical Exam Vital Signs: Temp Pulse Resp BP Pulse Ox 98.3 F 61 18 161/68 H 100 11/27/17 16:28 11/27/17 16:28 11/27/17 16:28 11/27/17 16:28 11/27/17 16:28 Intake & Output 11/26/17 11/27/17 11/28/17 06:59 06:59 06:59 Intake Total 1352 1172 Balance 1352 1172 Weight 89.4 kg 88.5 kg General appearance: PRESENT: no acute distress Eye exam: PRESENT: PERRLA Respiratory exam: PRESENT: clear to auscultation janelle Cardiovascular exam: PRESENT: +S1, +S2 GI/Abdominal exam: PRESENT: soft Results Laboratory Results: 11/26/17 05:25 11/27/17 05:25 11/27/17 05:25 Sodium 134.9 L Potassium 3.8 Chloride 103 Carbon Dioxide 26 Anion Gap 6 BUN 46 H Creatinine 2.40 H Est GFR ( Amer) 33 L Est GFR (Non-Af Amer) 27 L Glucose 114 H Calcium 9.1 11/17/17 11/17/17 11/18/17 06:41 11:00 04:42 Troponin I 0.212 0.253 0.126 11/19/17 06:45 Troponin I 0.074 Impressions: Fluoroscopy 11/16/17 00:00 IMPRESSION: ORIF left femur fracture. Refer to operative note for further information. Femur X-Ray 11/16/17 05:50 IMPRESSION: Fracture of the left femoral shaft. Pelvis X-Ray 11/16/17 05:50 IMPRESSION: No acute fracture or dislocation of the bony pelvis. Chest X-Ray 11/18/17 18:19 IMPRESSION: Interval placement of a right subclavian triple lumen catheter with tip in the superior vena cava. No pneumothorax. Renal Ultrasound 11/24/17 00:00 IMPRESSION: NORMAL RENAL AND BLADDER ULTRASOUND. Head MRI 11/25/17 00:00 IMPRESSION: OLD INFARCTS IN THE LEFT TEMPORAL LOBE AND LEFT CEREBELLAR HEMISPHERE. ATROPHY AND CHRONIC MICRO-VASCULAR ISCHEMIC CHANGES. NO ACUTE FINDINGS. EVIDENCE OF ACUTE STROKE: NO. Assessment & Plan - Diagnosis (1) Left femoral shaft fracture Qualifiers: Encounter type: initial encounter Fracture type: closed Fracture morphology: spiral Fracture alignment: displaced Qualified Code(s): S72.342A - Displaced spiral fracture of shaft of left femur, initial encounter for closed fracture Is this a current diagnosis for this admission?: Yes (2) Prostate CA Is this a current diagnosis for this admission?: Yes (3) Hypertension Qualifiers: Hypertension type: essential hypertension Qualified Code(s): I10 - Essential (primary) hypertension Is this a current diagnosis for this admission?: Yes (4) CAD (coronary artery disease) Qualifiers: Coronary Disease-Associated Artery/Lesion type: unspecified vessel or lesion type [place] vs. transplanted heart: [place] heart Associated angina: without angina Qualified Code(s): I25.10 - Atherosclerotic heart disease of [place] coronary artery without angina pectoris Is this a current diagnosis for this admission?: Yes (5) Diabetes mellitus Qualifiers: Diabetes mellitus type: type 2 Diabetes mellitus complication detail: with chronic kidney disease Chronic kidney disease stage: stage 3 (moderate) Is this a current diagnosis for this admission?: Yes (6) Frequent falls Is this a current diagnosis for this admission?: Yes (7) Non-ST elevated myocardial infarction Is this a current diagnosis for this admission?: Yes (8) Anemia Qualifiers: Anemia type: due to chronic kidney disease Is this a current diagnosis for this admission?: Yes (9) Chronic kidney disease Qualifiers: Chronic kidney disease stage: stage 3 (moderate) Qualified Code(s): N18.3 - Chronic kidney disease, stage 3 (moderate) Is this a current diagnosis for this admission?: Yes
[2017-11-27] MEDS: RIVAROXABAN 10 MG TABLET PO SCH (22:42)
[2017-11-28] MEDS: HYDRALAZINE HCL INJ/PF 20 MG/1 ML SDV IV PRN (00:44)
[2017-11-28] MEDS: NITROGLYCERIN 2% OINTMENT 1 GM PACKET TP SCH ×3 (02:16→17:33)
[2017-11-28 06:17] LABS: ANION GAP 10 (5-19); BLOOD UREA NITROGEN 43 mg/dL (7-20); CALCIUM 9.5 mg/dL (8.4-10.2); CARBON DIOXIDE 24 mmol/L (22-30); CHLORIDE 104 mmol/L (98-107); GLUCOSE 118 mg/dL (75-110); POTASSIUM 3.9 mmol/L (3.6-5.0); SODIUM 138.2 mmol/L (137-145)
--- NOTE | 2017-11-28 08:46 | PDOC PROGRESS REPORT ---
Subjective Progress Note for:: 11/28/17 Subjective:: Patient will be discharged to rehab today, we did discuss today that patient will not continue on Lupron while patient is admitted to rehab. Only upon discharge from rehab to home would we reinitiate therapy. Regardless, however, his prostate cancer is well controlled, and does not seem to be causing any of the symptomatology that brought him in. Reason For Visit: STATUS POST NAILING OF LEFT FEMORAL SHAFT FRACTURE Physical Exam Vital Signs: Temp Pulse Resp BP Pulse Ox 99.7 F 67 22 H 147/57 H 97 11/28/17 07:17 11/28/17 07:17 11/28/17 07:17 11/28/17 07:17 11/28/17 07:17 Intake & Output 11/27/17 11/28/17 11/29/17 06:59 06:59 06:59 Intake Total 1172 600 Balance 1172 600 Weight 88.5 kg 88.9 kg General appearance: PRESENT: no acute distress, well-developed, well-nourished Head exam: PRESENT: atraumatic, normocephalic Eye exam: PRESENT: conjunctiva pink, EOMI, PERRLA. ABSENT: scleral icterus Ear exam: PRESENT: normal external ear exam Mouth exam: PRESENT: moist, tongue midline Neck exam: ABSENT: carotid bruit, JVD, lymphadenopathy, thyromegaly Respiratory exam: PRESENT: clear to auscultation janelle. ABSENT: rales, rhonchi, wheezes Cardiovascular exam: PRESENT: RRR. ABSENT: diastolic murmur, rubs, systolic murmur Pulses: PRESENT: normal dorsalis pedis pul Vascular exam: PRESENT: normal capillary refill GI/Abdominal exam: PRESENT: normal bowel sounds, soft. ABSENT: distended, guarding, mass, organolmegaly, rebound, tenderness Rectal exam: PRESENT: deferred Extremities exam: PRESENT: full ROM. ABSENT: calf tenderness, clubbing, pedal edema Neurological exam: PRESENT: alert, awake, oriented to person, oriented to place , oriented to time, oriented to situation, CN II-XII grossly intact. ABSENT: motor sensory deficit Psychiatric exam: PRESENT: appropriate affect, normal mood. ABSENT: homicidal ideation, suicidal ideation Skin exam: PRESENT: dry, intact, warm. ABSENT: cyanosis, rash Results Laboratory Results: 11/26/17 05:25 11/28/17 05:30 11/28/17 05:30 Sodium 138.2 Potassium 3.9 Chloride 104 Carbon Dioxide 24 Anion Gap 10 BUN 43 H Creatinine 2.16 H Est GFR ( Amer) 37 L Est GFR (Non-Af Amer) 31 L Glucose 118 H Calcium 9.5 11/17/17 11/17/17 11/18/17 06:41 11:00 04:42 Troponin I 0.212 0.253 0.126 11/19/17 06:45 Troponin I 0.074 Impressions: Fluoroscopy 11/16/17 00:00 IMPRESSION: ORIF left femur fracture. Refer to operative note for further information. Femur X-Ray 11/16/17 05:50 IMPRESSION: Fracture of the left femoral shaft. Pelvis X-Ray 11/16/17 05:50 IMPRESSION: No acute fracture or dislocation of the bony pelvis. Chest X-Ray 11/18/17 18:19 IMPRESSION: Interval placement of a right subclavian triple lumen catheter with tip in the superior vena cava. No pneumothorax. Renal Ultrasound 11/24/17 00:00 IMPRESSION: NORMAL RENAL AND BLADDER ULTRASOUND. Head MRI 11/25/17 00:00 IMPRESSION: OLD INFARCTS IN THE LEFT TEMPORAL LOBE AND LEFT CEREBELLAR HEMISPHERE. ATROPHY AND CHRONIC MICRO-VASCULAR ISCHEMIC CHANGES. NO ACUTE FINDINGS. EVIDENCE OF ACUTE STROKE: NO. Assessment & Plan - Diagnosis (1) Prostate CA Is this a current diagnosis for this admission?: Yes Plan: Remains in good control, MRI of the brain was negative for any disease process, it is much more likely that the vascular infarction has caused his deficits, we will follow him upon discharge from rehab. - Time Time Spent with patient: 35 or more minutes
[2017-11-28] MEDS: FERROUS SULFATE LIQUID 300 MG/5 ML UDC PO SCH ×2 (09:20→17:33)
[2017-11-28] MEDS: AMLODIPINE BESYLATE 5 MG TABLET PO SCH (09:26)
[2017-11-28] MEDS: FAMOTIDINE INJ/PF 20 MG/2 ML SDV IV SCH (09:26)
[2017-11-28] MEDS: DOCUSATE SODIUM 100 MG CAPSULE PO SCH ×2 (09:27→17:33)
[2017-11-28] MEDS: SITAGLIPTIN PHOSPHATE 50 MG TABLET PO SCH (09:27)
[2017-11-28] MEDS: POLYETHYLENE GLYCOL 3350 POWDER 17 GM/1 PACKET PO SCH (09:27)
[2017-11-28] MEDS: THIAMINE HCL 100 MG TABLET PO SCH (09:27)
[2017-11-28] MEDS: METOPROLOL SUCCINATE 25 MG TAB.SR.24H PO SCH (10:28)
[2017-11-28] MEDS: INSULIN LISPRO 100 UNIT/ML 3 ML VIAL SUBCUT PRN ×2 (13:12→17:33)
[2017-11-28 15:45] VITALS: BP 152/61
== END 2017-11-28 19:39 | DRG 480 ==
LOC: ER 05:45 → EH 07:24 → 3W 21:34
PROVIDERS: ADMIT Orthopaedic Surgery; ATTEND Orthopaedic Surgery
PROC: 30233N1 Transfusion of Nonautologous Red Blood Cells into Peripheral Vein, Percutaneous Approach (ICD-10-PCS; 2017-11-16)
PROC: 0QS736Z Reposition Left Upper Femur with Intramedullary Internal Fixation Device, Percutaneous Approach (ICD-10-PCS; principal; 2017-11-16 18:30)
PROC: 30233N1 Transfusion of Nonautologous Red Blood Cells into Peripheral Vein, Percutaneous Approach (ICD-10-PCS; 2017-11-18)
PROC: 02HV33Z Insertion of Infusion Device into Superior Vena Cava, Percutaneous Approach (ICD-10-PCS; 2017-11-18)
PROC: 30233N1 Transfusion of Nonautologous Red Blood Cells into Peripheral Vein, Percutaneous Approach (ICD-10-PCS; 2017-11-19)
DX: S72.342A Displaced spiral fracture of shaft of left femur, initial encounter for closed fracture (principal); I21.4 Non-ST elevation (NSTEMI) myocardial infarction; J18.9 Pneumonia, unspecified organism; I47.2 Ventricular tachycardia; I25.10 Atherosclerotic heart disease of native coronary artery without angina pectoris; C61 Malignant neoplasm of prostate; N18.3 Chronic kidney disease, stage 3 (moderate); E11.22 Type 2 diabetes mellitus with diabetic chronic kidney disease; W19.XXXA Unspecified fall, initial encounter; D63.1 Anemia in chronic kidney disease; I12.9 Hypertensive chronic kidney disease with stage 1 through stage 4 chronic kidney disease, or unspecified chronic kidney disease; M19.90 Unspecified osteoarthritis, unspecified site; I25.2 Old myocardial infarction; Z86.73 Personal history of transient ischemic attack (TIA), and cerebral infarction without residual deficits; Z79.899 Other long term (current) drug therapy; Z79.4 Long term (current) use of insulin; Z79.82 Long term (current) use of aspirin; Z95.5 Presence of coronary angioplasty implant and graft; Z85.038 Personal history of other malignant neoplasm of large intestine; Z95.1 Presence of aortocoronary bypass graft
CPT/HCPCS: 01230; 36415; 36430; 70551; 71045; 72170; 76770; 80048; 80053; 81001; 82962; 84484; 85025; 85027; 85610; 85730; 86850; 86900; 86901; 86920; 87040; 87086; 93005; 93010; 93306; 94799; 96374; 99291; C1713; C1751; C1769; G8978-GP; G8979-GP; G8987-GO; G8988-GO; G8989-GO; J0360; J0690; J0885; J1642; J1650; J1815; J2060; J2250; J2270; J2405; J2704; J3010; J3490; P9016; S0028

== ENCOUNTER → 2018-02-23 | Outpatient (CLI) | payer MEDICAID, MEDICARE ==
--- NOTE | 2018-02-23 10:23 | WOMENS IMAGING REPORT ---
EXAM DESCRIPTION: BONE DENSITY HIP/SPINE COMPLETED DATE/TIME: 02/23/2018 9:54 am REASON FOR STUDY: M81.0 AGE-RELATED OSTEOPOROSIS WITHOUT CURRENT PATHOLOGICAL FRACTURE M81.0 AGE-RE LATED OSTEOPOROSIS W/O CURRENT PATHOLOGICAL FRAC COMPARISON: None. TECHNIQUE: Dual-Energy X-ray Absorptiometry (DEXA) of the AP Spine and Hip. LIMITATIONS: None. FINDINGS: LUMBAR SPINE: The bone mineral density (BMD) measured from L1-L4 in the AP projection correlates with a T-score of -1.6, which is osteopenia as defined by the World Health Organization. HIP: The bone mineral density (BMD) measured in the right hip correlates with a T-score of -3.2, which is osteoporosis as defined by the World Health Organization. IMPRESSION: 1. LUMBAR SPINE: OSTEOPENIA. 2. HIP: OSTEOPOROSIS. COMMENT: The World Health Organization defines low BMD as follows: T-score: Normal: Greater than -1.0 Osteopenia: Between -1.0 and -2.5 Osteoporosis: Less than -2.5 without fractures Established osteoporosis: Less than -2.5 with fractures In general, you may wish to consider: Diagnosis Treatment Follow-up DEXA Normal BMD Prevention 2-3 years Osteopenia Prevention/Therapy 1-2 years Osteoporosis Therapy Yearly TECHNICAL DOCUMENTATION: JOB ID: [id number] [employer]- All Rights Reserved Reading location - IP/workstation name: [email or web address]
== END ==
LOC: WI 09:20
PROVIDERS: ATTEND Internal Medicine
DX: M81.0 Age-related osteoporosis without current pathological fracture (principal); M85.88 Other specified disorders of bone density and structure, other site
CPT/HCPCS: 77080

== ENCOUNTER → 2018-03-10 | Outpatient (CLI) | payer MEDICAID, MEDICARE ==
--- NOTE | 2018-03-10 14:58 | RADIOLOGY REPORT (SQ) ---
EXAM DESCRIPTION: FOOT LEFT COMPLETE COMPLETED DATE/TIME: 03/10/2018 2:16 pm REASON FOR STUDY: L9.422 NON-PRS CHR ULCER OF LEFT HEEL AND MIDFOOT W FAT LAYER EXPOS L9.422 NON- PRS CHR ULCER OF LEFT HEEL AND MIDFOOT W FAT LAY COMPARISON: None. NUMBER OF VIEWS: Three views. TECHNIQUE: AP, lateral and oblique radiographic images acquired of the left foot. LIMITATIONS: None. FINDINGS: MINERALIZATION: Diffuse osteopenia. BONES: Linear lucency and cortical regularity along the base of the 5th metatarsal suggestive of avul dolly injury. Additional considerations include unfused apophysis. No additional fractures visualize d. Degenerative change at the midfoot with mild osteophytosis and joint space loss. No definite bon y sclerosis or erosions to suggest osteomyelitis. JOINTS: No effusions. SOFT TISSUES: Mild soft tissue swelling about the forefoot. OTHER: No other significant finding. IMPRESSION: 1. Findings suggestive of peroneal brevis avulsion injury at the base of the 5th metata rsal. Additional considerations include unfused apophysis. Recommend correlation with point tendern ess. 2. No findings to suggest osteomyelitis. 3. Diffuse osteopenia. TECHNICAL DOCUMENTATION: JOB ID: [id number] [employer]- All Rights Reserved Reading location - IP/workstation name: [email or web address]
[2018-03-10 15:36] LABS: ABSOLUTE EOSINOPHILS # (AUTO) 0.1 10^3/uL (0.0-0.6); ABSOLUTE LYMPHOCYTES (AUTO) 1.6 10^3/uL (0.5-4.7); ABSOLUTE MONOCYTES (AUTO) 0.5 10^3/uL (0.1-1.4); ABSOLUTE NEUT (AUTO) 4.6 10^3/uL (1.7-8.2); BASOPHILS % (AUTO) 0.7 % (0-2); EOSINOPHILS % (AUTO) 1.9 % (0-6); HEMATOCRIT 32.1 % (37.9-51.0); HEMOGLOBIN 10.8 g/dL (13.5-17.0); LYMPHOCYTES % (AUTO) 23.2 % (13-45); MEAN CORPUSCULAR HEMOGLOBIN 28.9 pg (27.0-33.4); MEAN CORPUSCULAR HGB CONC 33.5 g/dL (32.0-36.0); MEAN CORPUSCULAR VOLUME 86 fl (80-97); MONOCYTES % (AUTO) 7.9 % (3-13); PLATELET COUNT 263 10^3/uL (150-450); RED BLOOD COUNT 3.73 10^6/uL (4.35-5.55); RED CELL DISTRIBUTION WIDTH 15.1 % (11.5-14.0); SEGMENTED NEUTROPHILS % (AUTO) 66.3 % (42-78); TOTAL CELLS COUNTED % (AUTO) 100 %; WHITE BLOOD COUNT 6.9 10^3/uL (4.0-10.5)
[2018-03-10 16:27] LABS: ERYTHROCYTE SEDIMENTATION RATE 67 mm/hr (0-20)
[2018-03-10 16:31] LABS: ALANINE AMINOTRANSFERASE 10 U/L (21-72); ALBUMIN 4.1 g/dL (3.5-5.0); ALKALINE PHOSPHATASE 120 U/L (38-126); ANION GAP 9 (5-19); ASPARTATE AMINO TRANSFERASE 12 U/L (17-59); BILIRUBIN,DIRECT 0.2 mg/dL (0.0-0.4); BILIRUBIN,TOTAL 0.3 mg/dL (0.2-1.3); BLOOD UREA NITROGEN 34 mg/dL (7-20); CALCIUM 9.9 mg/dL (8.4-10.2); CARBON DIOXIDE 26 mmol/L (22-30); CHLORIDE 107 mmol/L (98-107); GLUCOSE 157 mg/dL (75-110); POTASSIUM 4.4 mmol/L (3.6-5.0); SODIUM 142.2 mmol/L (137-145); TOTAL PROTEIN 7.5 g/dL (6.3-8.2)
[2018-03-10 16:35] LABS: C-REACTIVE PROTEIN < 5.0 mg/L (<10.0)
--- NOTE | 2018-03-11 09:15 | XCELERA REPORT ---
[address] [address] Lower Extremity Arterial Evaluation Name: SHABNAM BEE Age: 67 yrs Gender: Male : 1950 Patient Status: Outpatient Patient Location: Study Date: 03/10/2018 03:19 PM Procedure: A color flow and duplex scan of the lower extremity arteries was performed bilaterally with velocity and waveform anaylsis. Ankle brachial indicies performed. 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 . Biphasic with decreased velocity, spectral broadening in the infrageniculate arteries. Ankle Brachial index not obtained due to non compressibility. Left Side Arterial Evaluation Normal velocity and triphasic waveforms noted in the Common Femoral artery. Biphasic with normal velocity and spectral broadening from Popliteal to the infrageniculate arteries. Ankle Brachial index not obtained due to non compressibility. Interpretation Summary Moderate hemodynamically significant disease in the both lower extremities. Infrageniculate on the right, Popliteal on the left. Ankle Brachial indices constrained due to non compressibility, reinforces the findings of arterial sclerosis. : EZEQUIEL MORATAYA > Diallo Ramirez
== END ==
LOC: SP 14:57
PROVIDERS: ATTEND Preventive Medicine Undersea and Hyperbaric Medicine
DX: L97.422 Non-pressure chronic ulcer of left heel and midfoot with fat layer exposed (principal)
CPT/HCPCS: 36415; 80053; 85025; 85652; 86140; 93922; 93925

== ENCOUNTER → 2018-12-08 | Outpatient (CLI) | payer MEDICAID, MEDICARE ==
--- NOTE | 2018-12-08 09:00 | RADIOLOGY REPORT (SQ) ---
EXAM DESCRIPTION: CT CHEST WITHOUT COMPLETED DATE/TIME: 12/08/2018 7:59 am REASON FOR STUDY: PROSTATE CA (C61 C61 MALIGNANT NEOPLASM OF PROSTATE COMPARISON: 05/07/2017 TECHNIQUE: CT scan performed of the chest without intravenous contrast. Images reviewed with lung, soft tissue and bone windows. Reconstructed coronal and sagittal MPR images reviewed. All images st ored on PACS. All CT scanners at this facility use dose modulation, iterative reconstruction, and/or weight based d osing when appropriate to reduce radiation dose to as low as reasonably achievable (ALARA). [facility]: Dose Right [facility]: CareDose [facility]: Dose Right [facility]: Teradose 4D [facility]: [employer] RADIATION DOSE: mGy. LIMITATIONS: No technical limitations. FINDINGS: LUNGS AND PLEURA: Stable irregular right apical nodule measuring 4 mm (series 6, image 27) , decreased in size from 12/05/2015. No new discrete nodules or masses. No focal airspace disease. No pleural effusion or pneumothorax. Mild hypoventilatory change at the lung bases. HILAR AND MEDIASTINAL STRUCTURES: No new mediastinal, hilar or axillary adenopathy. HEART AND VASCULAR STRUCTURES: Cardiomegaly. No pericardial effusion. Scattered three-vessel bhagat ry atherosclerosis with evidence of prior CABG. No aneurysm. UPPER ABDOMEN: See separate report of the CT of the abdomen. THYROID AND OTHER SOFT TISSUES: No masses. No adenopathy. BONES: No acute bony abnormality. No suspicious osseous lesions. HARDWARE: CABG hardware. Left sided chest port with catheter tip at cavoatrial junction OTHER: No other significant findings. IMPRESSION: 1. Stable size of the 4 mm right upper lobe nodule. No new new nodules or adenopathy. 2. No evidence of acute intrathoracic process. Chronic findings as above. TECHNICAL DOCUMENTATION: JOB ID: [id number] Quality ID # 436: Final reports with documentation of one or more dose reduction techniques (e.g., Au tomated exposure control, adjustment of the mA and/or kV according to patient size, use of iterative reconstruction technique) 2010 [employer]- All Rights Reserved Reading location - IP/workstation name: [email or web address]
--- NOTE | 2018-12-08 09:00 | RADIOLOGY REPORT (SQ) ---
EXAM DESCRIPTION: CT ABD/PELVIS NO ORAL OR IV COMPLETED DATE/TIME: 12/08/2018 7:59 am REASON FOR STUDY: PROSTATE CA (C61) C61 MALIGNANT NEOPLASM OF PROSTATE COMPARISON: 05/07/2017 TECHNIQUE: CT scan of the abdomen and pelvis performed without intravenous or oral contrast. Images reviewed with lung, soft tissue, and bone windows. Reconstructed coronal and sagittal MPR images revi ewed. All images stored on PACS. All CT scanners at this facility use dose modulation, iterative reconstruction, and/or weight based d osing when appropriate to reduce radiation dose to as low as reasonably achievable (ALARA). [facility]: Dose Right [facility]: CareDose [facility]: Dose Right [facility]: Teradose 4D [facility]: [employer] RADIATION DOSE: CT Rad equipment meets quality standard of care and radiation dose reduction techniq ues were employed. CTDIvol: 5.8 - 6.1 mGy. DLP: 581 mGy-cm.mGy. LIMITATIONS: None. FINDINGS: LOWER CHEST: See separate report of the CT of the chest. NON-CONTRASTED LIVER, SPLEEN, ADRENALS: Evaluation limited by lack of IV contrast. No identified sign ificant masses. PANCREAS: No masses. No peripancreatic inflammatory changes. GALLBLADDER: No identified stones by CT criteria. No inflammatory changes to suggest cholecystitis. RIGHT KIDNEY AND URETER: No suspicious masses. Assessment limited by lack of IV contrast. Nonobstru cting lower pole stone measuring 4.4 mm. Additional vascular calcification noted. No hydronephrosi s or hydroureter. LEFT KIDNEY AND URETER: No suspicious masses. Assessment limited by lack of IV contrast. Cortical at rophy of the lower pole. No significant calcifications. No hydronephrosis or hydroureter. AORTA AND RETROPERITONEUM: Scattered aortoiliac atherosclerosis without aneurysm. No retroperitoneal masses or adenopathy. BOWEL AND PERITONEAL CAVITY: Unchanged low-attenuation soft tissue lesion off the proximal transverse colon measuring 3.3 x 2.4 cm, adjacent to the surgical anastomosis site. No new focal bowel wall th ickening. No evidence of intestinal obstruction. No significant free intraperitoneal fluid. Nonspe cific susy mesentery about the mid abdomen, increased from prior. APPENDIX: Absent. PELVIS, BLADDER, AND ABDOMINAL WALL:Decompressed urinary bladder with bladder wall thickening, likely secondary to decompressed state. No discrete mass or adenopathy. BONES: No acute bony abnormality. No discrete lytic or blastic osseous lesions. Lower lumbar facet arthropathy. Partially visualized left femoral intramedullary elias. Chronic L1 compression deformity . OTHER: No other significant finding. IMPRESSION: 1. No definitive evidence of metastatic disease to the abdomen or pelvis on this noncon trast exam. 2. Increased conspicuity of susy mesentery within the central mid abdomen, a nonspecific finding. 3. Nonobstructing right renal stones. 4. Stable soft tissue mass at the small bowel/transverse colon anastomosis from multiple priors, lik pema surgically related. COMMENT: Quality ID # 436: Final reports with documentation of one or more dose reduction techniques (e.g., Automated exposure control, adjustment of the mA and/or kV according to patient size, use of iterative reconstruction technique) TECHNICAL DOCUMENTATION: JOB ID: [id number] [employer]- All Rights Reserved Reading location - IP/workstation name: [email or web address]
--- NOTE | 2018-12-08 13:22 | RADIOLOGY REPORT (SQ) ---
EXAM DESCRIPTION: NM WHOLE BODY BONE SCAN COMPLETED DATE/TIME: 12/08/2018 12:07 pm REASON FOR STUDY: PROSTATE CA (C61 C61 MALIGNANT NEOPLASM OF PROSTATE COMPARISON: 05/09/2017 RADIONUCLIDE AND DOSE: 20.8 millicuries Tc99m HDP. The route of agent administration: Intravenous. ADDITIONAL DRUGS AND DOSES: None. TECHNIQUE: Routine delayed images at 3 hour post radionuclide injection acquired of the bony skeleto n including anterior and posterior whole-body projections and additional focused images as needed. LIMITATIONS: None. FINDINGS: BONES: Increase uptake at the left elbow, similar prior and likely related to degenerative change. Additional uptake noted at the shoulders, knees and ankles, also likely degenerative. Foca l areas of uptake within the right forefoot and left lateral ankle, similar to prior. Decreased foca l uptake within the right lateral cervical spine compared to prior. Mild new ill-defined uptake at t he left mid femur. No additional new focal areas of abnormal uptake. KIDNEYS: Symmetric excretion without obstruction. OTHER: No other significant finding. IMPRESSION: 1. No definite findings suggestive of metastatic disease. 2. Mild ill-defined uptake at the left mid femur likely related to known intramedullary hardware. R ecommend correlation with patient symptoms. 3. Uptake at the left elbow, right cervical spine and additional joints, likely degenerative and sim ilar to prior. COMMENT: Quality measure 147: Current bone scan is compared with any available plain radiographs, p rior bone scans, and CT/MRI. TECHNICAL DOCUMENTATION: JOB ID: [id number] [employer]- All Rights Reserved Reading location - IP/workstation name: [email or web address]
== END ==
LOC: RAD 07:43
PROVIDERS: ATTEND Physician Assistant Medical
DX: C61 Malignant neoplasm of prostate (principal); R91.1 Solitary pulmonary nodule; N20.0 Calculus of kidney
CPT/HCPCS: 78306; 71250; 74176; A9561; Q9969

== ENCOUNTER → 2019-07-06 | Outpatient (CLI) | payer MEDICAID, MEDICARE ==
--- NOTE | 2019-07-06 10:11 | RADIOLOGY REPORT (SQ) ---
EXAM DESCRIPTION: CT CHEST WITH IMAGES COMPLETED DATE/TIME: 07/06/2019 8:59 am REASON FOR STUDY: PROSTATE CA (C61) C61 MALIGNANT NEOPLASM OF PROSTATE COMPARISON: None. TECHNIQUE: CT scan of the chest performed using helical scanning technique with dynamic intravenous contrast injection. Images reviewed with lung, soft tissue and bone windows. Reconstructed coronal and sagittal MPR and MIP images reviewed. All images stored on PACS. All CT scanners at this facility use dose modulation, iterative reconstruction, and/or weight based d osing when appropriate to reduce radiation dose to as low as reasonably achievable (ALARA). [facility]: Dose Right [facility]: CareDose [facility]: Dose Right [facility]: Teradose 4D [facility]: [employer] CONTRAST TYPE AND DOSE: contrast/concentration: Isovue 350.00 mg/ml; Total Contrast Delivered: 60.0 ml; Total Saline Delivered: 71.0 ml RENAL FUNCTION: Cr 1.9 RADIATION DOSE: . LIMITATIONS: None. FINDINGS: LUNGS AND PLEURA: Stable 4 mm right apical nodular opacity (series 6, image 24). No new d iscrete nodules or masses. No new airspace disease. Minimal bibasilar hypoventilatory change. No p leural effusion or pneumothorax. HILAR AND MEDIASTINAL STRUCTURES: No identified masses or abnormal nodes. HEART AND VASCULAR STRUCTURES: Cardiomegaly. Dense three-vessel coronary atherosclerosis. Evidence of prior CABG. HARDWARE: CABG hardware. Left subclavian base chest port with catheter tip at cavoatrial junction. UPPER ABDOMEN: See separate report of the CT of the abdomen. THYROID AND OTHER SOFT TISSUES: No masses. No adenopathy. BONES: No acute bony abnormality. No suspicious lytic or blastic osseous lesions. Sternotomy change s. OTHER: No other significant finding. IMPRESSION: 1. No evidence of new intrathoracic metastatic disease. 2. Stable 4 mm right apical nodule. 3. Cardiomegaly with coronary atherosclerosis. TECHNICAL DOCUMENTATION: JOB ID: [id number] Quality ID # 436: Final reports with documentation of one or more dose reduction techniques (e.g., Au tomated exposure control, adjustment of the mA and/or kV according to patient size, use of iterative reconstruction technique) 2010 [employer]- All Rights Reserved Reading location - IP/workstation name: [email or web address]
--- NOTE | 2019-07-06 10:32 | RADIOLOGY REPORT (SQ) ---
EXAM DESCRIPTION: CT ABD/PELVIS WITH IV ONLY IMAGES COMPLETED DATE/TIME: 07/06/2019 8:59 am REASON FOR STUDY: PROSTATE CA (C61) C61 MALIGNANT NEOPLASM OF PROSTATE COMPARISON: 12/08/2018 TECHNIQUE: CT scan of the abdomen and pelvis performed using helical scanning technique with dynamic intravenous contrast injection. No oral contrast. Images reviewed with lung, soft tissue, and bone windows. Reconstructed coronal and sagittal MPR images reviewed. Delayed images for evaluation of the urinary system also acquired. All images stored on PACS. All CT scanners at this facility use dose modulation, iterative reconstruction, and/or weight based d osing when appropriate to reduce radiation dose to as low as reasonably achievable (ALARA). [facility]: Dose Right [facility]: CareDose [facility]: Dose Right [facility]: Teradose 4D [facility]: [employer] CONTRAST TYPE AND DOSE: See chest RENAL FUNCTION: See chest RADIATION DOSE: CT Rad equipment meets quality standard of care and radiation dose reduction techniq ues were employed. CTDIvol: 8.6 - 9.6 mGy. DLP: 1971 mGy-cm.. LIMITATIONS: None. FINDINGS: LOWER CHEST: See separate report of the CT of the chest. LIVER: Normal size. No masses. No dilated ducts. SPLEEN: Normal size. No focal lesions. PANCREAS: No masses. No significant calcifications. No adjacent inflammation or peripancreatic fluid collections. Pancreatic duct not dilated. GALLBLADDER: No identified stones by CT criteria. No inflammatory changes to suggest cholecystitis. ADRENAL GLANDS: No significant masses or asymmetry. RIGHT KIDNEY AND URETER: Diffuse cortical thinning. No solid masses. Unchanged nonobstructing righ t renal stone. No hydronephrosis or hydroureter. LEFT KIDNEY AND URETER: Diffuse cortical thinning. No solid masses. No significant calcifications. No hydronephrosis or hydroureter. AORTA AND VESSELS: No aneurysm. No dissection. Renal arteries, SMA, celiac without stenosis. RETROPERITONEUM: No retroperitoneal adenopathy, hemorrhage or masses. BOWEL AND PERITONEAL CAVITY: Evidence of prior right hemicolectomy with unchanged soft tissue lesion at the small bowel/transverse colon anastomosis, likely surgically related. No evidence of intestina l obstruction. No additional focal bowel wall thickening. Unchanged nonspecific mild mesenteric str anding. APPENDIX: Surgically absent. PELVIS: No mass. No free fluid. Normal bladder. ABDOMINAL WALL: No masses. No hernias. BONES: No acute bony abnormality. Unchanged mild compression deformity of L1. No discrete lytic or blastic osseous lesions. Lower lumbar facet arthropathy, mild. Partially evaluated left hip intrame dullary elias. IMPRESSION: 1. No evidence of metastatic disease within the abdomen or pelvis. 2. No evidence of acute intra-abdominal/pelvic process. 3. Stable chronic findings as above. TECHNICAL DOCUMENTATION: JOB ID: [id number] Quality ID # [id number]: Final reports with documentation of one or more dose reduction techniques (e.g., Au tomated exposure control, adjustment of the mA and/or kV according to patient size, use of iterative reconstruction technique) 2010 [employer]- All Rights Reserved Reading location - IP/workstation name: [email or web address]
--- NOTE | 2019-07-06 14:00 | RADIOLOGY REPORT (SQ) ---
EXAM DESCRIPTION: NM WHOLE BODY BONE SCAN IMAGES COMPLETED DATE/TIME: 07/06/2019 1:39 pm REASON FOR STUDY: PROSTATE CA (C61 C61 MALIGNANT NEOPLASM OF PROSTATE COMPARISON: 12/08/2018 RADIONUCLIDE AND DOSE: 21.4 millicuries Tc99m HDP. The route of agent administration: Intravenous. ADDITIONAL DRUGS AND DOSES: None. TECHNIQUE: Routine delayed images at 3 hour post radionuclide injection acquired of the bony skeleto n including anterior and posterior whole-body projections and additional focused images as needed. LIMITATIONS: None. FINDINGS: BONES: Uptake at the shoulders, elbows, hips, knees and feet in a pattern most consistent with degenerative change. Again seen is mild uptake about the left midshaft femur likely related to known femoral hardware and similar to prior. Otherwise normal visualization without areas of photope nic or increased bony uptake of radiopharmaceutical. KIDNEYS: Symmetric excretion without obstruction. OTHER: Urinary contamination about the perineum. IMPRESSION: 1. No definitive findings of osseous metastatic disease. 2. Unchanged mild uptake about the left midshaft femur likely related to known femoral hardware. Re commend correlation with patient symptoms. COMMENT: Quality measure 147: Current bone scan is compared with any available plain radiographs, p rior bone scans, and CT/MRI. TECHNICAL DOCUMENTATION: JOB ID: [id number] 2010 [employer]- All Rights Reserved Reading location - IP/workstation name: [email or web address]
== END ==
LOC: RAD 07:50
PROVIDERS: ATTEND Internal Medicine
DX: C61 Malignant neoplasm of prostate (principal); R91.1 Solitary pulmonary nodule; I25.10 Atherosclerotic heart disease of native coronary artery without angina pectoris; I51.7 Cardiomegaly
CPT/HCPCS: 82565; 78306; 71260; 74177; A9561; Q9969

== ENCOUNTER → 2019-07-10 | Outpatient (CLI) | payer MEDICARE ==
[2019-07-10 10:48] LABS: ABSOLUTE EOSINOPHILS # (AUTO) 0.1 10^3/uL (0.0-0.6); ABSOLUTE LYMPHOCYTES (AUTO) 1.2 10^3/uL (0.5-4.7); ABSOLUTE MONOCYTES (AUTO) 0.4 10^3/uL (0.1-1.4); ABSOLUTE NEUT (AUTO) 2.7 10^3/uL (1.7-8.2); BASOPHILS % (AUTO) 0.9 % (0-2); EOSINOPHILS % (AUTO) 2.2 % (0-6); HEMATOCRIT 32.4 % (37.9-51.0); HEMOGLOBIN 11.1 g/dL (13.5-17.0); LYMPHOCYTES % (AUTO) 27.2 % (13-45); MEAN CORPUSCULAR HEMOGLOBIN 31.2 pg (27.0-33.4); MEAN CORPUSCULAR HGB CONC 34.4 g/dL (32.0-36.0); MEAN CORPUSCULAR VOLUME 91 fl (80-97); MONOCYTES % (AUTO) 9.3 % (3-13); PLATELET COUNT 195 10^3/uL (150-450); RED BLOOD COUNT 3.57 10^6/uL (4.35-5.55); RED CELL DISTRIBUTION WIDTH 14.7 % (11.5-14.0); SEGMENTED NEUTROPHILS % (AUTO) 60.4 % (42-78); TOTAL CELLS COUNTED % (AUTO) 100 %; WHITE BLOOD COUNT 4.5 10^3/uL (4.0-10.5)
[2019-07-10 11:05] LABS: APPEARANCE,URINE CLEAR; BILIRUBIN,URINE NEGATIVE (NEGATIVE); COLOR,URINE YELLOW; GLUCOSE, URINE NEGATIVE (NEGATIVE); KETONES,URINE NEGATIVE (NEGATIVE); LEUKOCYTE ESTERASE,URINE NEGATIVE (NEGATIVE); NITRITE,URINE NEGATIVE (NEGATIVE); PROTEIN,URINE 30 mg/dL (NEGATIVE); URINE SPECIFIC GRAVITY 1.013; UROBILINOGEN,URINE NEGATIVE mg/dL (<2.0)
[2019-07-10 11:11] LABS: ALBUMIN 3.8 g/dL (3.5-5.0); ANION GAP 8 (5-19); BLOOD UREA NITROGEN 26 mg/dL (7-20); CALCIUM 9.2 mg/dL (8.4-10.2); CARBON DIOXIDE 25 mmol/L (22-30); CHLORIDE 104 mmol/L (98-107); GLUCOSE 130 mg/dL (75-110); PHOSPHORUS 3.9 mg/dL (2.5-4.5); POTASSIUM 4.7 mmol/L (3.6-5.0)
[2019-07-10 11:17] LABS: UR PRO/CREAT RATIO RESULT 0.5 mg/mg (0.0-0.2); URINE CREATININE 84.8 mg/dL (22-328)
== END ==
LOC: OD 10:02
PROVIDERS: ATTEND Physician Assistant Medical
DX: I12.9 Hypertensive chronic kidney disease with stage 1 through stage 4 chronic kidney disease, or unspecified chronic kidney disease (principal); N18.3 Chronic kidney disease, stage 3 (moderate); E11.22 Type 2 diabetes mellitus with diabetic chronic kidney disease; D63.1 Anemia in chronic kidney disease; R80.9 Proteinuria, unspecified
CPT/HCPCS: 36415; 80048; 81001; 82040; 82570; 84100; 84156; 85025

== ENCOUNTER → 2020-01-21 | Outpatient (CLI) | payer MEDICARE ==
--- NOTE | 2020-01-21 11:35 | RADIOLOGY REPORT (SQ) ---
EXAM DESCRIPTION: CT CHEST WITHOUT IMAGES COMPLETED DATE/TIME: 01/21/2020 9:24 am REASON FOR STUDY: C61 MALIGNANT NEOPLASM OF PROSTATE C61 MALIGNANT NEOPLASM OF PROSTATE COMPARISON: CT of the chest with contrast from 07/06/2019. TECHNIQUE: CT scan performed of the chest without intravenous contrast. Images reviewed with lung, soft tissue and bone windows. Reconstructed coronal and sagittal MPR images reviewed. All images st ored on PACS. All CT scanners at this facility use dose modulation, iterative reconstruction, and/or weight based d osing when appropriate to reduce radiation dose to as low as reasonably achievable (ALARA). [facility]: Dose Right [facility]: CareDose [facility]: Dose Right [facility]: Teradose 4D [facility]: [employer] LIMITATIONS: No technical limitations. FINDINGS: LUNGS AND PLEURA: The trachea and main bronchi are patent. The round cystic spaces with i mperceptible khan scattered throughout both lungs are unchanged in size and number compared to the p rior CT. The 4 mm nodule in the apical segment of the right upper lobe (image 11 of series 2) is als o unchanged. There is no acute consolidation, ground-glass opacification, pleural effusion, pleural thickening or pulmonary nodule. HILAR AND MEDIASTINAL STRUCTURES: In the thoracic esophagus is patulous. There is no mediastinal hubert nopathy. Evaluation of the jerel for adenopathy is limited by the absence of intravenous contrast HEART AND VASCULAR STRUCTURES: Unchanged cardiomegaly and moderate to severe atherosclerotic calcific ation of the coronary arteries. There is no pericardial effusion. UPPER ABDOMEN: Refer to the separate report of the CT of the abdomen. THYROID AND OTHER SOFT TISSUES: No adenopathy or mass. BONES: Unchanged chronic compression deformities of the superior endplates of T11 and L1, chronic fra cture of the right posterior 10th rib and mixed sclerotic and lucent lesion within the left lateral 5 th rib. HARDWARE: Sternotomy wires and left subclavian vein approach single-lumen port. OTHER: No other findings. IMPRESSION: No acute cardiopulmonary process or evidence of metastatic disease. TECHNICAL DOCUMENTATION: JOB ID: [id number] Quality ID # 436: Final reports with documentation of one or more dose reduction techniques (e.g., Au tomated exposure control, adjustment of the mA and/or kV according to patient size, use of iterative reconstruction technique) 2010 [employer]- All Rights Reserved Reading location - IP/workstation name: [email or web address]
--- NOTE | 2020-01-21 12:14 | RADIOLOGY REPORT (SQ) ---
EXAM DESCRIPTION: CT ABD/PELVIS NO ORAL OR IV IMAGES COMPLETED DATE/TIME: 01/21/2020 9:24 am REASON FOR STUDY: C61 MALIGNANT NEOPLASM OF PROSTATE C61 MALIGNANT NEOPLASM OF PROSTATE COMPARISON: None. TECHNIQUE: CT scan of the abdomen and pelvis performed without intravenous or oral contrast. Images reviewed with lung, soft tissue, and bone windows. Reconstructed coronal and sagittal MPR images revi ewed. All images stored on PACS. All CT scanners at this facility use dose modulation, iterative reconstruction, and/or weight based d osing when appropriate to reduce radiation dose to as low as reasonably achievable (ALARA). [facility]: Dose Right [facility]: CareDose [facility]: Dose Right [facility]: Teradose 4D [facility]: [employer] RADIATION DOSE: CT Rad equipment meets quality standard of care and radiation dose reduction techniq ues were employed. CTDIvol: 7.1 - 11.1 mGy. DLP: 836 mGy-cm.. LIMITATIONS: None. FINDINGS: LOWER CHEST: Refer to the separate report of the CT of the chest. NON-CONTRASTED LIVER, SPLEEN, ADRENALS: Evaluation is limited by the absence of intravenous contrast. There is no evidence hepatic steatosis. The spleen is normal in size. There is no adrenal mass. PANCREAS: No acute gross abnormality of the pancreas GALLBLADDER: No acute gross abnormality of the gallbladder. RIGHT KIDNEY AND URETER: Evaluation is limited by the absence of intravenous contrast. The calcifica tions that project within the renal sinus in the lower pole of the kidney (Image 31 of series 3) coul d represent caliceal calculi or calcified atheromatous plaques. There is no hydronephrosis, hydroure ter or ureterolithiasis. LEFT KIDNEY AND URETER: Evaluation is limited by the absence of intravenous contrast. The cortical a trophy in the lower pole of the kidney is unchanged. The calcifications that project within the toya l sinus likely represent calcified atheromatous plaques. There is no hydronephrosis, hydroureter or ureterolithiasis. AORTA AND RETROPERITONEUM: No aneurysm of the abdominal aorta. No retroperitoneal adenopathy, hemorr malik or mass. BOWEL AND PERITONEAL CAVITY: The lobular lesion with a thin hyperdense rim and an internal attenuatio n of less than 20 Hounsfield units at the enterocolonic anastomosis in the right upper quadrant measu res 4.1 x 2.2 cm. The "susy" appearance of the mesentery is unchanged. There is no bowel obstructi on, bowel wall thickening or pericolonic/perienteric inflammation. There is no mesenteric adenopathy or free intraperitoneal fluid. APPENDIX: Surgically absent. PELVIS, BLADDER, AND ABDOMINAL WALL: The inguinal canals are patulous. The urinary bladder is partia lly distended. There is no abdominal wall mass or hernia. BONES: Chronic compression deformities of the T11 and L1 vertebral bodies. There is no acute fractu re osseous lesion. OTHER: No other findings. IMPRESSION: 1. No acute intra-abdominal abnormality. 2. Unchanged "susy" appearance of the mesentery. 3. The lobular lesion with a thin hyperdense rim and an internal attenuation of less than 20 Hounsfie ld units at the enterocolonic anastomosis in the right upper quadrant is likely surgery related. COMMENT: Quality ID # 436: Final reports with documentation of one or more dose reduction techniques (e.g., Automated exposure control, adjustment of the mA and/or kV according to patient size, use of iterative reconstruction technique) TECHNICAL DOCUMENTATION: JOB ID: [id number] 2010 [employer]- All Rights Reserved Reading location - IP/workstation name: [email or web address]
== END ==
LOC: RAD 08:51
PROVIDERS: ATTEND Physician Assistant Medical
DX: C61 Malignant neoplasm of prostate (principal)
CPT/HCPCS: 71250; 74176